=== PATIENT | male | born 1955 | race Caucasian/White ===

== ENCOUNTER 2019-11-16 08:01 | Outpatient (CLI) | payer MEDICARE, SELFPAY ==
[2019-11-16 08:39] LABS: Hemoglobin A1C 8.1 % (<5.7)
[2019-11-16 09:43] LABS: Alanine Aminotransferase 22 U/L (16-63); Albumin Level 3.5 g/dL (3.4-5.0); Alkaline Phosphatase 90 U/L (46-116); Anion Gap 13.7 mmol/L (7-16); Aspartate Amino Transferase 16 U/L (15-37); Bilirubin,Total 0.3 mg/dL (0.00-1.00); Blood Urea Nitrogen 18 mg/dL (7-18); Calcium 9.3 mg/dL (8.5-10.1); Carbon Dioxide 30 mmol/L (21-32); Chloride 106 mmol/L (98-108); Cholesterol 217 mg/dL (0-200); Estimated Glomerular Filt Rate > 60; Glucose 142 mg/dL (70-99); HDL Direct 70 mg/dL (40-60); LDL Cholesterol Calculated 131 mg/dL (<130); Osmolality Calculated 303 mOsm/kg (285-295); Potassium 4.7 mmol/L (3.5-5.1); Sodium 145 mmol/L (136-145); Total Protein 6.2 g/dL (6.4-8.2); Triglycerides 79 mg/dL (0-150)
== END 2019-11-16 08:02 | disposition home or self-care (01) ==
PROVIDERS: PCP Internal Medicine; Visit Provider Internal Medicine
DX: E11.9 Type 2 diabetes mellitus without complications (principal)
CPT/HCPCS: 36415; 80053; 80061; 83036

== ENCOUNTER 2020-02-19 09:18 | Outpatient (CLI) | payer MEDICARE, SELFPAY ==
[2020-02-19 09:28] LABS: Basophils Absolute Auto 0.17 K/mm3 (0.00-0.10); Basophils Percent Auto 1.6 % (0.0-1.0); Eosinophils Absolute Auto 0.54 K/mm3 (0.02-0.50); Hematocrit 43.5 % (40.0-54.0); Hemoglobin 15.2 g/dL (14.0-18.0); Immature Granulocyte Absolute 0.08 K/mm3 (0.00-0.00); Immature Granulocyte Percent A 0.7 % (0.0-0.0); Lymphocytes Percent Auto 25.9 % (18.0-42.0); Mean Corpuscular HGB Conc 34.9 g/dL (32.0-36.0); Mean Corpuscular Hemoglobin 31.5 pg (27.0-31.0); Mean Corpuscular Volume 90.2 fL (78.0-102.0); Mean Platelet Volume 8.9 fl (8.7-11.0); Monocytes Absolute Auto 1.11 K/mm3 (0.10-0.90); Monocytes Percent Auto 10.2 % (2.0-11.0); Neutrophils Absolute Auto 6.1 K/mm3 (1.7-7.2); Neutrophils Percent Auto 56.6 % (50.0-70.0); Platelet Count Result 212 K/mm3 (150-420); Red Blood Count 4.82 M/mm3 (4.70-6.10); Red Cell Distribution Width 12.8 % (11.6-14.4); White Blood Count 10.8 K/mm3 (4.8-10.8)
[2020-02-19 09:36] LABS: Hemoglobin A1C 7.6 % (<5.7)
[2020-02-19 10:47] LABS: Alanine Aminotransferase 22 U/L (16-63); Albumin Level 3.6 g/dL (3.4-5.0); Alkaline Phosphatase 95 U/L (46-116); Anion Gap 10.8 mmol/L (7-16); Aspartate Amino Transferase 15 U/L (15-37); Bilirubin,Total 0.4 mg/dL (0.00-1.00); Blood Urea Nitrogen 20 mg/dL (7-18); Calcium 8.9 mg/dL (8.5-10.1); Carbon Dioxide 31 mmol/L (21-32); Chloride 103 mmol/L (98-108); Cholesterol 162 mg/dL (0-200); Estimated Glomerular Filt Rate > 60; Glucose 148 mg/dL (70-99); HDL Direct 56 mg/dL (40-60); LDL Cholesterol Calculated 98 mg/dL (<130); Osmolality Calculated 295 mOsm/kg (285-295); Potassium 4.8 mmol/L (3.5-5.1); Sodium 140 mmol/L (136-145); Total Protein 6.3 g/dL (6.4-8.2); Triglycerides 42 mg/dL (0-150)
== END 2020-02-19 09:19 | disposition home or self-care (01) ==
LOC: CHSLAB 09:20
PROVIDERS: PCP Internal Medicine; Visit Provider Internal Medicine
DX: E78.5 Hyperlipidemia, unspecified (principal); I10 Essential (primary) hypertension; E11.9 Type 2 diabetes mellitus without complications
CPT/HCPCS: 36415; 80053; 80061; 83036; 85025

== ENCOUNTER 2020-03-20 12:19 | Outpatient (CLI) | payer MEDICARE, SELFPAY ==
[2020-03-20 12:32] LABS: Mean Corpuscular HGB Conc 34.1 g/dL (32.0-36.0); Mean Corpuscular Hemoglobin 31.3 pg (27.0-31.0); Mean Corpuscular Volume 91.7 fL (78.0-102.0); Mean Platelet Volume 8.8 fl (8.7-11.0); Platelet Count Result 211 K/mm3 (150-420); Red Blood Count 4.47 M/mm3 (4.70-6.10); Red Cell Distribution Width 12.9 % (11.6-14.4); White Blood Count 9.7 K/mm3 (4.8-10.8)
[2020-03-20 13:20] LABS: Anion Gap 11.7 mmol/L (7-16); Blood Urea Nitrogen 22 mg/dL (7-18); Calcium 9.3 mg/dL (8.5-10.1); Carbon Dioxide 29 mmol/L (21-32); Chloride 104 mmol/L (98-108); Estimated Glomerular Filt Rate 55; Glucose 95 mg/dL (70-99); Magnesium 1.8 mg/dL (1.8-2.4); Osmolality Calculated 293 mOsm/kg (285-295); Potassium 4.7 mmol/L (3.5-5.1); Sodium 140 mmol/L (136-145); Thyroid Stimulating Hormone 2.51 uIU/mL (0.36-3.74)
== END 2020-03-20 12:20 | disposition home or self-care (01) ==
LOC: CHSLAB 12:21
PROVIDERS: PCP Internal Medicine; Visit Provider Specialist
DX: I48.92 Unspecified atrial flutter (principal); R00.0 Tachycardia, unspecified; Z79.899 Other long term (current) drug therapy
CPT/HCPCS: 36415; 80048; 83735; 84443; 85027; 93306

== ENCOUNTER 2020-07-08 12:33 | Outpatient (CLI) | payer MEDICARE, SELFPAY | END 2020-07-08 12:34 | disposition home or self-care (01) | LOC: CHSLAB 12:37 | PROVIDERS: PCP Internal Medicine; Visit Provider Specialist | DX: C44.519 Basal cell carcinoma of skin of other part of trunk (principal) | CPT/HCPCS: 88305 ==

== ENCOUNTER 2020-08-19 12:07 | Outpatient (CLI) | payer MEDICARE, SELFPAY ==
--- NOTE | ~2020-08-19 | XR_ITS ---
EXAMINATION: XR shoulder LT min 2V DATE: 08/19/2020 12:25 INDICATION: Left shoulder pain. TECHNIQUE: 4 views of left shoulder were obtained. COMPARISON: None. FINDINGS: Bone alignment is normal. No fracture. There is severe osteoarthritis of glenohumeral joint and acromioclavicular joint. IMPRESSION: 1. Polyarticular osteoarthritis. Reviewed, dictated and finalized at location A. RGLASSER
== END 2020-08-19 12:08 | disposition home or self-care (01) ==
LOC: CHSIMG 12:08
PROVIDERS: PCP Internal Medicine; Visit Provider Internal Medicine
DX: M25.512 Pain in left shoulder (principal)
CPT/HCPCS: 73030

== ENCOUNTER 2020-09-03 08:52 | Outpatient (CLI) | payer MEDICARE, SELFPAY ==
[2020-09-03 09:54] LABS: Anion Gap 9 mmol/L (8-16); Blood Urea Nitrogen 15 mg/dL (7-18); Calcium 9.2 mg/dL (8.5-10.1); Carbon Dioxide 27 mmol/L (21-32); Chloride 104 mmol/L (98-108); Estimated Glomerular Filt Rate > 60; Glucose 91 mg/dL (70-99); Osmolality Calculated 290 mOsm/kg (285-295); Potassium 4.5 mmol/L (3.5-5.1); Sodium 140 mmol/L (136-145)
== END 2020-09-03 08:53 | disposition home or self-care (01) ==
PROVIDERS: PCP Internal Medicine
DX: R00.0 Tachycardia, unspecified (principal); I10 Essential (primary) hypertension; R60.9 Edema, unspecified
CPT/HCPCS: 36415; 80048

== ENCOUNTER 2020-11-27 08:50 | Outpatient (CLI) | payer MEDICARE, SELFPAY ==
[2020-11-27 09:13] LABS: Basophils Absolute Auto 0.13 K/mm3 (0.00-0.10); Basophils Percent Auto 1.3 % (0.0-1.0); Eosinophils Absolute Auto 0.54 K/mm3 (0.02-0.50); Eosinophils Percent Auto 5.3 % (1.0-6.0); Hematocrit 36.9 % (40.0-54.0); Hemoglobin 12.2 g/dL (14.0-18.0); Immature Granulocyte Absolute 0.06 K/mm3 (0.00-0.00); Immature Granulocyte Percent A 0.6 % (0.0-0.0); Lymphocytes Percent Auto 15.8 % (18.0-42.0); Mean Corpuscular HGB Conc 33.1 g/dL (32.0-36.0); Mean Corpuscular Hemoglobin 30.4 pg (27.0-31.0); Mean Platelet Volume 9.2 fl (8.7-11.0); Monocytes Absolute Auto 0.97 K/mm3 (0.10-0.90); Monocytes Percent Auto 9.6 % (2.0-11.0); Neutrophils Absolute Auto 6.8 K/mm3 (1.7-7.2); Neutrophils Percent Auto 67.4 % (50.0-70.0); Platelet Count Result 219 K/mm3 (150-420); Red Blood Count 4.01 M/mm3 (4.70-6.10); Red Cell Distribution Width 15.1 % (11.6-14.4); White Blood Count 10.1 K/mm3 (4.8-10.8)
[2020-11-27 09:40] LABS: Hemoglobin A1C 7.4 % (<5.7)
[2020-11-27 09:57] LABS: Alanine Aminotransferase 36 U/L (16-63); Albumin Level 3.4 g/dL (3.4-5.0); Alkaline Phosphatase 112 U/L (46-116); Anion Gap 8 mmol/L (8-16); Aspartate Amino Transferase 22 U/L (15-37); Bilirubin,Total 0.5 mg/dL (0.00-1.00); Blood Urea Nitrogen 24 mg/dL (7-18); Calcium 9.1 mg/dL (8.5-10.1); Carbon Dioxide 28 mmol/L (21-32); Chloride 104 mmol/L (98-108); Estimated Glomerular Filt Rate > 60; Glucose 80 mg/dL (70-99); Osmolality Calculated 293 mOsm/kg (285-295); Sodium 140 mmol/L (136-145); Total Protein 6.3 g/dL (6.4-8.2)
== END 2020-11-27 08:51 | disposition home or self-care (01) ==
LOC: CHSLAB 08:52
PROVIDERS: PCP Internal Medicine; Visit Provider Internal Medicine
DX: E11.9 Type 2 diabetes mellitus without complications (principal); I10 Essential (primary) hypertension
CPT/HCPCS: 36415; 80053; 83036; 85025

== ENCOUNTER 2020-11-28 09:36 | Outpatient (CLI) | payer MEDICARE, SELFPAY ==
[2020-11-28 09:54] LABS: Immature Reticulocyte Fraction 6.2 % (2.0-16.52); Reticulocyte Hemoglobin Conten 35.8 pg (28.0-35.0); Reticulocyte Percent 1.29 % (0.50-1.50); Reticulocytes Absolute 0.06 M/mm3 (0.02-0.1)
[2020-11-28 10:43] LABS: Ferritin 154 ng/mL (26-388); Iron 105 ug/dL (65-175); Percent Iron Saturation 29 % (12-57); Prostate Specific Antigen 1.8 ng/mL (< OR = 4.0)
[2020-11-28 10:45] LABS: CRP < 0.2 mg/dL (0.0-0.9)
[2020-12-02 08:52] LABS: Methylmalonic Acid 190 nmol/L (87-318)
== END 2020-11-28 09:37 | disposition home or self-care (01) ==
LOC: CHSLAB 09:38
PROVIDERS: PCP Internal Medicine; Visit Provider Internal Medicine
DX: D64.9 Anemia, unspecified (principal); C61 Malignant neoplasm of prostate
CPT/HCPCS: 36415; 82728; 83540; 83550; 83921; 84153; 85046; 86140

== ENCOUNTER 2021-02-26 08:49 | Outpatient (CLI) | payer MEDICARE, SELFPAY ==
[2021-02-26 09:01] LABS: Basophils Absolute Auto 0.12 K/mm3 (0.00-0.10); Basophils Percent Auto 1.4 % (0.0-1.0); Eosinophils Absolute Auto 0.59 K/mm3 (0.02-0.50); Eosinophils Percent Auto 6.9 % (1.0-6.0); Hemoglobin 13.7 g/dL (12.4-15.3); Immature Granulocyte Absolute 0.06 K/mm3 (0.00-0.00); Immature Granulocyte Percent A 0.7 % (0.0-0.0); Lymphocytes Absolute Auto 1.47 K/mm3 (1.10-4.50); Lymphocytes Percent Auto 17.2 % (18.0-42.0); Mean Corpuscular HGB Conc 34.3 g/dL (32.0-36.0); Mean Corpuscular Hemoglobin 31.4 pg (27.0-31.0); Mean Corpuscular Volume 91.5 fL (78.0-102.0); Mean Platelet Volume 8.8 fl (8.7-11.0); Monocytes Absolute Auto 0.92 K/mm3 (0.10-0.90); Monocytes Percent Auto 10.8 % (2.0-11.0); Neutrophils Absolute Auto 5.4 K/mm3 (1.7-7.2); Platelet Count Result 174 K/mm3 (150-420); Red Blood Count 4.37 M/mm3 (4.70-6.10); White Blood Count 8.5 K/mm3 (4.8-10.8)
[2021-02-26 09:34] LABS: Alanine Aminotransferase 21 U/L (16-63); Albumin Level 3.4 g/dL (3.4-5.0); Alkaline Phosphatase 102 U/L (46-116); Anion Gap 11 mmol/L (8-16); Aspartate Amino Transferase 12 U/L (15-37); Bilirubin,Total 0.3 mg/dL (0.00-1.00); Blood Urea Nitrogen 23 mg/dL (7-18); Carbon Dioxide 26 mmol/L (21-32); Chloride 103 mmol/L (98-108); Cholesterol 200 mg/dL (0-200); Estimated Glomerular Filt Rate > 60; Glucose 131 mg/dL (70-99); HDL Direct 61 mg/dL (40-60); LDL Cholesterol Calculated 121 mg/dL (<130); Osmolality Calculated 295 mOsm/kg (285-295); Potassium 4.4 mmol/L (3.5-5.1); Sodium 140 mmol/L (136-145); Total Protein 6.2 g/dL (6.4-8.2); Triglycerides 90 mg/dL (0-150)
[2021-02-26 09:38] LABS: Hemoglobin A1C 6.7 % (<5.7)
== END 2021-02-26 08:50 | disposition home or self-care (01) ==
LOC: CHSLAB 08:52
PROVIDERS: PCP Internal Medicine; Visit Provider Internal Medicine
DX: D64.9 Anemia, unspecified (principal); E11.9 Type 2 diabetes mellitus without complications
CPT/HCPCS: 36415; 80053; 80061; 83036; 85025

== ENCOUNTER 2021-05-05 13:11 | Outpatient (CLI) | payer MEDICARE, SELFPAY | END 2021-05-05 13:12 | disposition home or self-care (01) | PROVIDERS: PCP Internal Medicine; Visit Provider Specialist | DX: L82.0 Inflamed seborrheic keratosis (principal) | CPT/HCPCS: 88305 ==

== ENCOUNTER 2021-06-01 08:59 | Outpatient (CLI) | payer MEDICARE, SELFPAY ==
[2021-06-01 10:22] LABS: Alanine Aminotransferase 27 U/L (16-63); Albumin Level 3.5 g/dL (3.4-5.0); Alkaline Phosphatase 101 U/L (46-116); Anion Gap 8 mmol/L (8-16); Aspartate Amino Transferase 15 U/L (15-37); Bilirubin,Total 0.5 mg/dL (0.00-1.00); Blood Urea Nitrogen 20 mg/dL (7-18); Calcium 8.9 mg/dL (8.5-10.1); Carbon Dioxide 30 mmol/L (21-32); Chloride 106 mmol/L (98-108); Cholesterol 194 mg/dL (0-200); Estimated Glomerular Filt Rate > 60; Glucose 97 mg/dL (70-99); HDL Direct 67 mg/dL (40-60); LDL Cholesterol Calculated 118 mg/dL (<130); Osmolality Calculated 300 mOsm/kg (285-295); Potassium 4.2 mmol/L (3.5-5.1); Sodium 144 mmol/L (136-145); Total Protein 6.6 g/dL (6.4-8.2); Triglycerides 45 mg/dL (0-150)
== END 2021-06-01 09:00 | disposition home or self-care (01) ==
LOC: CHSLAB 09:01
PROVIDERS: PCP Internal Medicine; Visit Provider Internal Medicine
DX: E11.9 Type 2 diabetes mellitus without complications (principal)
CPT/HCPCS: 36415; 80053; 80061; 83036

== ENCOUNTER 2021-07-21 09:05 | Outpatient (CLI) | payer MEDICARE, SELFPAY | END 2021-07-21 09:06 | disposition home or self-care (01) | LOC: CHSOUTPT 09:08 | PROVIDERS: PCP Internal Medicine; Visit Provider Specialist | DX: C44.629 Squamous cell carcinoma of skin of left upper limb, including shoulder (principal) | CPT/HCPCS: 88305 ==

== ENCOUNTER 2021-09-22 10:22 | Outpatient (CLI) | payer MEDICARE, SELFPAY | END 2021-09-22 10:23 | disposition home or self-care (01) | PROVIDERS: PCP Internal Medicine; Visit Provider Specialist | DX: B07.8 Other viral warts (principal) | CPT/HCPCS: 88305 ==

== ENCOUNTER 2021-09-29 08:57 | Outpatient (CLI) | payer MEDICARE, SELFPAY ==
[2021-09-29 09:24] LABS: Basophils Absolute Auto 0.13 K/mm3 (0.00-0.10); Basophils Percent Auto 1.5 % (0.0-1.0); Eosinophils Percent Auto 5.9 % (1.0-6.0); Hematocrit 40.8 % (37.0-46.0); Hemoglobin 13.9 g/dL (12.4-15.3); Immature Granulocyte Absolute 0.04 K/mm3 (0.00-0.00); Immature Granulocyte Percent A 0.5 % (0.0-0.0); Lymphocytes Absolute Auto 1.77 K/mm3 (1.10-4.50); Lymphocytes Percent Auto 20.9 % (18.0-42.0); Mean Corpuscular HGB Conc 34.1 g/dL (32.0-36.0); Mean Corpuscular Hemoglobin 31.4 pg (27.0-31.0); Mean Corpuscular Volume 92.3 fL (78.0-102.0); Monocytes Absolute Auto 0.77 K/mm3 (0.10-0.90); Monocytes Percent Auto 9.1 % (2.0-11.0); Neutrophils Absolute Auto 5.3 K/mm3 (1.7-7.2); Neutrophils Percent Auto 62.1 % (50.0-70.0); Platelet Count Result 206 K/mm3 (150-420); Red Blood Count 4.42 M/mm3 (4.70-6.10); Red Cell Distribution Width 12.7 % (11.6-14.4); White Blood Count 8.5 K/mm3 (4.8-10.8)
[2021-09-29 09:39] LABS: Hemoglobin A1C 7.1 % (<5.7)
[2021-09-29 10:04] LABS: Alanine Aminotransferase 28 U/L (16-63); Albumin Level 3.6 g/dL (3.4-5.0); Alkaline Phosphatase 97 U/L (46-116); Anion Gap 10 mmol/L (8-16); Aspartate Amino Transferase 18 U/L (15-37); Bilirubin,Total 0.4 mg/dL (0.00-1.00); Blood Urea Nitrogen 15 mg/dL (7-18); Carbon Dioxide 27 mmol/L (21-32); Chloride 102 mmol/L (98-108); Cholesterol 232 mg/dL (0-200); Estimated Glomerular Filt Rate > 60; Glucose 114 mg/dL (70-99); HDL Direct 65 mg/dL (40-60); LDL Cholesterol Calculated 154 mg/dL (<130); Osmolality Calculated 289 mOsm/kg (285-295); Potassium 4.1 mmol/L (3.5-5.1); Prostate Specific Antigen 1.8 ng/mL (< OR = 4.0); Sodium 139 mmol/L (136-145); Total Protein 6.5 g/dL (6.4-8.2); Triglycerides 64 mg/dL (0-150)
[2021-09-29 10:47] LABS: Add Urine Microscopic? YES; Appearance Urine Clear (Clear); Bilirubin Urine Negative (Negative); Blood Urine Negative (Negative); Color Urine Yellow (Yellow); Glucose Urine UA Negative (Negative); Ketones Urine Negative (Negative); Leukocyte Esterase Ur Negative (Negative); Nitrate Urine Negative (Negative); Protein Urine 2+ (Negative); Urobilinogen Urine 0.2 mg/dL (0.2-1.0)
[2021-09-29 10:52] LABS: Bacteria Urine Trace /hpf; Mucus Urine Few /lpf; RBC Urine None seen /hpf (0-2); WBC Urine None seen /hpf (0-3)
[2021-09-29 11:05] LABS: Creatinine Urine 134.58 mg/dL (40-278)
[2021-09-29 11:31] LABS: MALB Creatinine Ratio 297.2 mg/g (0-30); Microalbumin Urine Random > 400.0 mg/L
[2021-10-02 05:37] LABS: LH 5.7 mIU/mL (1.6-15.2)
[2021-10-03 11:15] LABS: Testosterone Free 52.5 pg/mL (35.0-155.0); Testosterone Total 682 ng/dL (250-1100)
== END 2021-09-29 08:58 | disposition home or self-care (01) ==
LOC: CHSLAB 09:00
PROVIDERS: PCP Internal Medicine; Visit Provider Internal Medicine
DX: E11.9 Type 2 diabetes mellitus without complications (principal); E29.1 Testicular hypofunction; Z00.00 Encounter for general adult medical examination without abnormal findings; Z12.5 Encounter for screening for malignant neoplasm of prostate
CPT/HCPCS: 36415; 80053; 80061; 81001; 82043; 83002; 83036; 84153; 84402; 84403; 84443; 85025; G0103

== ENCOUNTER 2021-12-29 09:26 | Outpatient (CLI) | payer MEDICARE, SELFPAY ==
[2021-12-29 10:03] LABS: Hemoglobin A1C 6.4 % (<5.7)
[2021-12-29 10:28] LABS: Prostate Specific Antigen 1.8 ng/mL (< OR = 4.0)
== END 2021-12-29 09:27 | disposition home or self-care (01) ==
LOC: CHSLAB 09:27
PROVIDERS: PCP Internal Medicine; Visit Provider Internal Medicine
DX: E11.9 Type 2 diabetes mellitus without complications (principal); C61 Malignant neoplasm of prostate
CPT/HCPCS: 36415; 83036; 84153

== ENCOUNTER 2022-05-24 14:37 | Outpatient (CLI) | payer MEDICARE, SELFPAY ==
[2022-05-24 15:04] LABS: Appearance Urine Clear (Clear); Basophils Absolute Auto 0.13 K/mm3 (0.00-0.10); Basophils Percent Auto 1.1 % (0.0-1.0); Bilirubin Urine Negative (Negative); Color Urine Yellow (Yellow); Eosinophils Absolute Auto 0.47 K/mm3 (0.02-0.50); Eosinophils Percent Auto 4.1 % (1.0-6.0); Glucose Urine UA Negative (Negative); Hematocrit 39.9 % (37.0-46.0); Hemoglobin 13.6 g/dL (12.4-15.3); Immature Granulocyte Absolute 0.07 K/mm3 (0.00-0.00); Immature Granulocyte Percent A 0.6 % (0.0-0.0); Ketones Urine 1+ (Negative); Leukocyte Esterase Ur Negative (Negative); Lymphocytes Absolute Auto 2.28 K/mm3 (1.10-4.50); Lymphocytes Percent Auto 19.8 % (18.0-42.0); Mean Corpuscular HGB Conc 34.1 g/dL (32.0-36.0); Mean Corpuscular Hemoglobin 31.8 pg (27.0-31.0); Mean Corpuscular Volume 93.2 fL (78.0-102.0); Mean Platelet Volume 9.1 fl (8.7-11.0); Monocytes Absolute Auto 1.06 K/mm3 (0.10-0.90); Monocytes Percent Auto 9.2 % (2.0-11.0); Neutrophils Absolute Auto 7.5 K/mm3 (1.7-7.2); Neutrophils Percent Auto 65.2 % (50.0-70.0); Nitrate Urine Negative (Negative); Platelet Count Result 200 K/mm3 (150-420); Protein Urine 2+ (Negative); Red Blood Count 4.28 M/mm3 (4.70-6.10); Specific Grav Ur >= 1.030 (1.010-1.020); Urobilinogen Urine 0.2 mg/dL (0.2-1.0); White Blood Count 11.5 K/mm3 (4.8-10.8); pH Urine 5.5 (5.0-8.0)
[2022-05-24 15:22] LABS: Add Urine Microscopic? YES; Bacteria Urine Trace /hpf; Blood Urine Trace-Intact (Negative); Squamous Epithelial Cell Urine Rare /hpf (Few); WBC Urine 0-3 /hpf (0-3)
[2022-05-24 15:25] LABS: Hemoglobin A1C 6.8 % (<5.7)
[2022-05-24 15:34] LABS: Alanine Aminotransferase 21 U/L (16-63); Albumin Level 3.6 g/dL (3.4-5.0); Alkaline Phosphatase 111 U/L (46-116); Anion Gap 6 mmol/L (8-16); Aspartate Amino Transferase 14 U/L (15-37); Bilirubin,Total 0.3 mg/dL (0.00-1.00); Blood Urea Nitrogen 23 mg/dL (7-18); Calcium 9.3 mg/dL (8.5-10.1); Carbon Dioxide 29 mmol/L (21-32); Chloride 103 mmol/L (98-108); Estimated Glomerular Filt Rate > 60; Free T3 2.44 pg/mL (2.18-3.98); Free T4 Free Thyroxine 0.99 ng/dL (0.76-1.46); Glucose 159 mg/dL (70-99); Osmolality Calculated 292 mOsm/kg (285-295); Potassium 4.2 mmol/L (3.5-5.1); Sodium 138 mmol/L (136-145); Total Protein 6.6 g/dL (6.4-8.2)
== END 2022-05-24 14:38 | disposition home or self-care (01) ==
LOC: CHSLAB 14:38
PROVIDERS: PCP Internal Medicine; Visit Provider Internal Medicine
DX: R19.7 Diarrhea, unspecified (principal); E11.9 Type 2 diabetes mellitus without complications; I10 Essential (primary) hypertension
CPT/HCPCS: 36415; 80053; 81001; 83036; 84439; 84443; 84481; 85025

== ENCOUNTER 2022-05-25 14:24 | Outpatient (CLI) | payer MEDICARE, SELFPAY | END 2022-05-25 14:25 | disposition home or self-care (01) | LOC: CHSLAB 14:27 | PROVIDERS: PCP Internal Medicine; Visit Provider Internal Medicine | DX: R19.7 Diarrhea, unspecified (principal); E11.9 Type 2 diabetes mellitus without complications; I10 Essential (primary) hypertension | CPT/HCPCS: 87045; 87177; 87209; 87324; 87427 ==

== ENCOUNTER 2022-07-06 13:41 | Outpatient (CLI) | payer MEDICARE, SELFPAY | END 2022-07-06 13:42 | disposition home or self-care (01) | LOC: CHSLAB 13:42 | PROVIDERS: PCP Internal Medicine; Visit Provider Specialist | DX: C44.529 Squamous cell carcinoma of skin of other part of trunk (principal) | CPT/HCPCS: 88305 ==

== ENCOUNTER 2022-09-14 17:58 | Emergency (ER) | payer MEDICARE, SELFPAY ==
[2022-09-14] VITALS (14 sets, daily range): BP systolic 92–180; BP diastolic 58–84; PULSE 78–90; RESP 16–20; TEMP 36.6–37.3; O2SAT 90–95
--- NOTE | ~2022-09-14 | XR_ITS ---
EXAMINATION: XR chest 2V Exam Date/Time: 09/14/2022 19:40 MASTERCAM PROGRAMMER HISTORY: Cough, fever, weakness, positive influenza Comparison: 05/07/2019. RESULT: Lines, tubes, and devices: None. Lungs and pleura: Diffuse reticulonodular opacities and cuffing. Cardiomediastinal silhouette: Stable. Other: No acute osseous or upper abdominal finding. IMPRESSION: Pulmonary opacities may represent bronchiolitis, as can be seen with atypical infection, asthma, aspi ration, and small airways disease. Reviewed, dictated and finalized at location K. ERCAM PROGRAMMER IMPRESSION: Pulmonary opacities may represent bronchiolitis, as can be seen with atypical i nfection, asthma, aspiration, and small airways disease.
--- NOTE | 2022-09-14 18:03 | ED.URI ---
HPI - URI/Sore Throat General Chief Complaint: Fever Stated Complaint: short of breath Time Seen by Provider: 09/14/22 18:03 Source: patient and RN notes reviewed Mode of arrival: ambulatory Limitations: no limitations History of Present Illness MD elicited complaint: fever, cough and nasal congestion Onset (ago): week(s) (1) Consistency: intermittent Severity: moderate Description of mucous: clear Able to tolerate fluids by mouth: Yes Exacerbating factors: exertion and other ( coughing) Relieving factors: nothing Context: sick contacts Associated symptoms: chills, myalgias, headache, cough, shortness of breath and other ( dizziness) Treatments prior to arrival: none Related Data Home Medications Medication Instructions Recorded Confirmed blood sugar diagnostic (OneTouch 09/14/22 09/14/22 Ultra Test strips) buspirone 10 mg tablet 20 mg PO BID 09/14/22 09/14/22 fluoxetine 20 mg capsule 60 mg PO DAILY 09/14/22 09/14/22 insulin aspart U-100 100 unit/mL See Rx Instructions .Route .COMPLEX 09/14/22 09/14/22 (3 mL) subcutaneous pen (Novolog FlexPen U-100 Insulin aspart) insulin glargine 100 unit/mL (3 30 unit subcut HS 09/14/22 09/14/22 mL) subcutaneous pen (Basaglar KwikPen U-100 Insulin) lisinopril 10 mg tablet 10 mg PO DAILY 09/14/22 09/14/22 Allergies Allergy/AdvReac Type Severity Reaction Status Date / Time quetiapine [From Seroquel] Allergy Hallucinati Verified 09/14/22 18:16 ng Review of Systems Review of Systems: All systems reviewed & are unremarkable except as noted in HPI and below PMFSH Past Medical History Medical History (Updated 09/14/22 @ 21:04 by Elgin Green MD) Atrial fibrillation Depression Diabetes Hypertension Surgical History Surgical History (Updated 09/14/22 @ 21:04 by Elgin Green MD) H/O cardiac radiofrequency ablation Social History Social History (Updated 09/14/22 @ 19:06 by Elgin Green MD) Smoking status: Former smoker Tobacco type: cigarettes Additional smoking assessment comments: says he quit 2 weeks ago Exam Const: General: no acute distress, alert and ill appearing acutely Nutritional Appearance: well nourished Orientation/consciousness: patient oriented x3 Limitations: no limitations HENMT: Head: normal to inspection Ears: external ears normal Eyes: Conjunctivae: conjunctivae normal Pupils: Equal, round and reactive pupils present EOM: EOMs intact bilaterally Neck: Neck: normal visual inspection Resp: Effort & Inspection: normal respiratory effort Auscultation: clear to auscultation bilaterally Cardio: Rate: regular rate Rhythm: regular rhythm GI: GI Palp: Yes Soft to palpation and No Tenderness to palpation present (GI) Auscultation: normal bowel sounds Back/Spine/Pelvis: Cervical Spine: cervical ROM normal Thoracic/Lumbar Spine: thoraco-lumbar ROM normal Skin: General skin exam: normal color Rashes: no rashes Neuro: General: patient oriented x3, moves all extremities, no focal motor deficits and CN's II-XI intact bilaterally Speech: normal speech Gait exam (Neuro): Normal gait present Extrem: General: normal to inspection and no clubbing, cyanosis or edema Psych: Mental Status: mental status grossly normal Affect: normal affect Attitude: cooperative Course Course Emergency Course: Patient given 1 L of normal saline for his acute low sodium. This is secondary to his diarrhea. He states he just really needs something for cough to help him sleep. He is not requiring any supplemental oxygen is not any respiratory distress. I explained to him that he is beyond the window for treatment of influenza. I will give him some Tessalon Perles for his cough and meclizine for his dizziness. He is encouraged to eat a BRAT diet with chicken breast. Follow-up with primary care physician any worsening symptoms. Vital Signs Vital signs: Vital Signs Temperature 37.3 C 09/14/22 18:00 Pulse Rate 90 09/05
[2022-09-14 18:09] LABS: Glucose Point of Care 197 mg/dl (65-105)
[2022-09-14 18:33] LABS: Basophils Absolute Auto 0.02 K/mm3 (0.00-0.10); Basophils Percent Auto 0.5 % (0.0-1.0); Hematocrit 41.9 % (37.0-46.0); Hemoglobin 14.6 g/dL (12.4-15.3); Immature Granulocyte Absolute 0.02 K/mm3 (0.00-0.00); Immature Granulocyte Percent A 0.5 % (0.0-0.0); Lymphocytes Absolute Auto 0.69 K/mm3 (1.10-4.50); Lymphocytes Percent Auto 16.5 % (18.0-42.0); Mean Corpuscular HGB Conc 34.8 g/dL (32.0-36.0); Mean Corpuscular Hemoglobin 30.7 pg (27.0-31.0); Mean Corpuscular Volume 88.2 fL (78.0-102.0); Mean Platelet Volume 10.2 fl (8.7-11.0); Monocytes Absolute Auto 0.26 K/mm3 (0.10-0.90); Monocytes Percent Auto 6.2 % (2.0-11.0); Neutrophils Absolute Auto 3.2 K/mm3 (1.7-7.2); Neutrophils Percent Auto 76.3 % (50.0-70.0); Platelet Count Result 126 K/mm3 (150-420); Red Blood Count 4.75 M/mm3 (4.70-6.10); Red Cell Distribution Width 12.6 % (11.6-14.4); White Blood Count 4.2 K/mm3 (4.8-10.8)
--- NOTE | 2022-09-14 18:51 | PC.NURSE ---
PT IS LAYING ON STRETCHER IN EXAM ROOM AWAITING RESULTS AT THIS TIME. NAD NOTED. WILL CONTINUE TO MONITOR. CALL LIGHT AT BEDSIDE.
[2022-09-14 18:54] LABS: Lactic Acid Reflex 1.4 mmol/L (0.4-2.0)
[2022-09-14 18:58] LABS: Alanine Aminotransferase 41 U/L (16-63); Albumin Level 2.9 g/dL (3.4-5.0); Alkaline Phosphatase 105 U/L (46-116); Anion Gap 11 mmol/L (8-16); Aspartate Amino Transferase 71 U/L (15-37); Bilirubin,Total 0.2 mg/dL (0.00-1.00); Blood Urea Nitrogen 65 mg/dL (7-18); Calcium 8.6 mg/dL (8.5-10.1); Carbon Dioxide 24 mmol/L (21-32); Chloride 93 mmol/L (98-108); Estimated CRCL calculation 28 ml/min; Estimated Glomerular Filt Rate 30; Glucose 220 mg/dL (70-99); Magnesium 2.1 mg/dL (1.8-2.4); NT Pro B Type Natriuretic Pept 37 pg/mL (0-125); Osmolality Calculated 291 mOsm/kg (285-295); Sodium 128 mmol/L (136-145); Total Protein 6.7 g/dL (6.4-8.2)
[2022-09-14 18:59] LABS: CRP 11.2 mg/dL (0.0-0.9)
[2022-09-14 19:09] LABS: Influenza A QL RT-PCR Positive (Negative); Influenza B QL RT-PCR Negative (Negative); SARS-CoV-2 RNA PCR Negative (Negative)
[2022-09-14] MEDS: SODIUM CHLORIDE 0.9% IV 1,000 ML 999 ML IV CONT (19:10)
[2022-09-14] MEDS: MECLIZINE HCL 25 MG TABLET PO (20:38)
[2022-09-14] MEDS: BENZONATATE 100 MG CAPSULE PO (20:38)
--- NOTE | 2022-09-21 14:12 | PC.NURSE ---
FINAL BLOOD CULTURE REPORT X2: NO GROWTH AFTER 5 DAYS. NO ACTION NEEDED.
== END 2022-09-14 20:40 | disposition home or self-care (01) ==
PROVIDERS: Emergency Provider Emergency Medicine; PCP Internal Medicine
DX: J10.1 Influenza due to other identified influenza virus with other respiratory manifestations (principal); E87.1 Hypo-osmolality and hyponatremia; R06.02 Shortness of breath; E11.9 Type 2 diabetes mellitus without complications; I10 Essential (primary) hypertension; F32.A Depression, unspecified; Z87.891 Personal history of nicotine dependence; Z79.4 Long term (current) use of insulin; Z20.822 Contact with and (suspected) exposure to COVID-19
CPT/HCPCS: 36415; 71046; 80053; 82948; 83605; 83735; 83880; 85025; 86140; 87040; 87636; 96360; 99283; A9270; J7030

== ENCOUNTER 2022-09-17 10:32 | Outpatient (CLI) | payer MEDICARE, SELFPAY ==
[2022-09-17 10:47] LABS: Basophils Absolute Auto 0.01 K/mm3 (0.00-0.10); Basophils Percent Auto 0.1 % (0.0-1.0); Hemoglobin 13.8 g/dL (12.4-15.3); Immature Granulocyte Absolute 0.04 K/mm3 (0.00-0.00); Immature Granulocyte Percent A 0.5 % (0.0-0.0); Lymphocytes Absolute Auto 0.77 K/mm3 (1.10-4.50); Lymphocytes Percent Auto 9.2 % (18.0-42.0); Mean Corpuscular HGB Conc 35.4 g/dL (32.0-36.0); Mean Corpuscular Hemoglobin 30.9 pg (27.0-31.0); Mean Corpuscular Volume 87.2 fL (78.0-102.0); Monocytes Absolute Auto 0.76 K/mm3 (0.10-0.90); Monocytes Percent Auto 9.1 % (2.0-11.0); Neutrophils Absolute Auto 6.8 K/mm3 (1.7-7.2); Neutrophils Percent Auto 81.1 % (50.0-70.0); Platelet Count Result 254 K/mm3 (150-420); Red Blood Count 4.47 M/mm3 (4.70-6.10); Red Cell Distribution Width 12.7 % (11.6-14.4); White Blood Count 8.4 K/mm3 (4.8-10.8)
[2022-09-17 10:48] LABS: Appearance Urine Clear (Clear); Bilirubin Urine Negative (Negative); Blood Urine Negative (Negative); Glucose Urine UA Trace (Negative); Ketones Urine Trace (Negative); Leukocyte Esterase Ur Negative (Negative); Nitrate Urine Negative (Negative); Protein Urine 1+ (Negative); Specific Grav Ur 1.025 (1.010-1.020); Urobilinogen Urine 0.2 mg/dL (0.2-1.0); pH Urine 5.5 (5.0-8.0)
[2022-09-17 10:59] LABS: Add Urine Microscopic? YES; Color Urine Dark Yellow (Yellow); RBC Urine None seen /hpf (0-2); WBC Urine None seen /hpf (0-3)
[2022-09-17 11:00] LABS: Bacteria Urine Trace /hpf
[2022-09-17 11:46] LABS: Alanine Aminotransferase 43 U/L (16-63); Albumin Level 2.8 g/dL (3.4-5.0); Alkaline Phosphatase 112 U/L (46-116); Anion Gap 12 mmol/L (8-16); Aspartate Amino Transferase 41 U/L (15-37); Bilirubin,Total 0.3 mg/dL (0.00-1.00); Blood Urea Nitrogen 77 mg/dL (7-18); Calcium 8.4 mg/dL (8.5-10.1); Carbon Dioxide 21 mmol/L (21-32); Chloride 96 mmol/L (98-108); Estimated Glomerular Filt Rate 37; Magnesium 2.4 mg/dL (1.8-2.4); Osmolality Calculated 313 mOsm/kg (285-295); Potassium 4.4 mmol/L (3.5-5.1); Sodium 129 mmol/L (136-145); Total Protein 6.5 g/dL (6.4-8.2)
[2022-09-17 11:58] LABS: Glucose 498 mg/dL (70-99)
== END 2022-09-17 10:33 | disposition home or self-care (01) ==
LOC: CHSLAB 10:35
PROVIDERS: PCP Internal Medicine; Visit Provider Internal Medicine
DX: E87.1 Hypo-osmolality and hyponatremia (principal)
CPT/HCPCS: 36415; 80053; 81001; 83735; 85025

== ENCOUNTER 2022-09-20 13:52 | Outpatient (CLI) | payer MEDICARE, SELFPAY ==
--- NOTE | ~2022-09-20 | XR_ITS ---
XR chest 2V 09/20/2022 15:21 Indication: Pneumonia. Productive cough. Shortness of breath. Procedure: 2 view chest Comparison: Comparison to multiple prior studies sequentially, with oldest reviewed study dated 07/06. Findings: There are developing infiltrates of the right mid and lower lung, consistent with pneumonia . Heart size normal. No significant effusion. No edema or pneumothorax. No acute osseous abnormality. There is calcified granuloma in the right mid thorax. Impression: 1: Developing infiltrates of the right mid and lower lung, consistent with pneumonia. Reviewed, dictated and finalized at location A. IGURATION ENGINEER Impression: 1: Developing infiltrates of the right mid and lower lung, consistent with pneu monia.
[2022-09-20 14:40] LABS: Alanine Aminotransferase 31 U/L (16-63); Alkaline Phosphatase 107 U/L (46-116); Anion Gap 12 mmol/L (8-16); Aspartate Amino Transferase 20 U/L (15-37); Bilirubin,Total 0.6 mg/dL (0.00-1.00); Blood Urea Nitrogen 27 mg/dL (7-18); Calcium 8.9 mg/dL (8.5-10.1); Carbon Dioxide 24 mmol/L (21-32); Chloride 101 mmol/L (98-108); Estimated Glomerular Filt Rate > 60; Glucose 232 mg/dL (70-99); Magnesium 2.1 mg/dL (1.8-2.4); Osmolality Calculated 296 mOsm/kg (285-295); Potassium 4.7 mmol/L (3.5-5.1); Sodium 137 mmol/L (136-145); Total Protein 6.7 g/dL (6.4-8.2)
== END 2022-09-20 13:53 | disposition home or self-care (01) ==
PROVIDERS: PCP Internal Medicine; Visit Provider Internal Medicine
DX: J18.9 Pneumonia, unspecified organism (principal); R91.8 Other nonspecific abnormal finding of lung field; N17.9 Acute kidney failure, unspecified
CPT/HCPCS: 36415; 71046; 80053; 83735

== ENCOUNTER 2023-02-04 09:01 | Outpatient (CLI) | payer MEDICARE, SELFPAY ==
[2023-02-04 09:35] LABS: Hemoglobin A1C 6.6 % (<5.7)
[2023-02-04 09:38] LABS: Creatinine Urine 198.37 mg/dL (40-278); MALB Creatinine Ratio 201.6 mg/g (0-30); Microalbumin Urine Random > 400.0 mg/L
[2023-02-04 10:21] LABS: Alanine Aminotransferase 13 U/L (16-63); Albumin Level 3.5 g/dL (3.4-5.0); Alkaline Phosphatase 98 U/L (46-116); Anion Gap 8 mmol/L (8-16); Aspartate Amino Transferase 16 U/L (15-37); Bilirubin,Total 0.4 mg/dL (0.00-1.00); Blood Urea Nitrogen 20 mg/dL (7-18); Calcium 8.9 mg/dL (8.5-10.1); Carbon Dioxide 27 mmol/L (21-32); Chloride 105 mmol/L (98-108); Cholesterol 209 mg/dL (0-200); Estimated Glomerular Filt Rate > 60; Glucose 154 mg/dL (70-99); HDL Direct 61 mg/dL (40-60); LDL Cholesterol Calculated 133 mg/dL (<130); Osmolality Calculated 295 mOsm/kg (285-295); Potassium 4.7 mmol/L (3.5-5.1); Prostate Specific Antigen 1.9 ng/mL (< OR = 4.0); Sodium 140 mmol/L (136-145); Total Protein 6.3 g/dL (6.4-8.2); Triglycerides 75 mg/dL (0-150)
[2023-02-08 10:07] LABS: Testosterone Total 694 ng/dL (250-1100)
== END 2023-02-04 09:02 | disposition home or self-care (01) ==
LOC: CHSLAB 09:03
PROVIDERS: PCP Internal Medicine; Visit Provider Internal Medicine
DX: E11.9 Type 2 diabetes mellitus without complications (principal); E78.5 Hyperlipidemia, unspecified; Z12.5 Encounter for screening for malignant neoplasm of prostate
CPT/HCPCS: 36415; 80053; 80061; 82043; 83036; 84153; 84403; G0103

== ENCOUNTER 2023-05-12 10:29 | Emergency (ER) | payer MEDICARE, SELFPAY ==
[2023-05-12 10:29] VITALS: BP 179/78; PULSE 68; RESP 16; TEMP 36.6; O2SAT 98
[2023-05-12] MEDS: DACRIOSE EYE IRRIGATION 118 ML BOTTLE 10 ML EACH EYE (10:49)
[2023-05-12] MEDS: TETRACAINE HCL 0.5% OPHTH SOLN 4 ML BTL 1 DROP EACH EYE (10:49)
[2023-05-12] MEDS: FLUORESCEIN SOD 1 MG/STRIP EACH EYE (10:49)
--- NOTE | 2023-05-12 11:00 | ED.EYEPROB ---
HPI - Eye Problem General Chief complaint: Eye Problems Stated complaint: left eye foreign body Time Seen by Provider: 05/12/23 10:34 Source: patient Mode of arrival: ambulatory Limitations: no limitations History of Present Illness HPI Narrative: this is a 68-year-old male that presents with left eye complaint of sensation of a foreign body after he was doing some grinding and thinks that a sliver of metal [place] into his left eye, other is currently no blurry vision does have some tearing and pain and foreign body sensation with redness in the left eye. chief complaint: eye pain, eye injury and foreign body Onset (ago): day(s) Duration: constant Location: left eye Eye Symptoms: redness and foreign body sensation Severity: moderate Severity scale (1-10): 5 Related Data Home Medications Medication Instructions Recorded Confirmed blood sugar diagnostic (OneTouch 09/14/22 09/14/22 Ultra Test strips) buspirone 10 mg tablet 20 mg PO BID 09/14/22 09/14/22 fluoxetine 20 mg capsule 60 mg PO DAILY 09/14/22 09/14/22 insulin aspart U-100 100 unit/mL See Rx Instructions .Route .COMPLEX 09/14/22 09/14/22 (3 mL) subcutaneous pen (Novolog FlexPen U-100 Insulin aspart) insulin glargine 100 unit/mL (3 30 unit subcut HS 09/14/22 09/14/22 mL) subcutaneous pen (Basaglar KwikPen U-100 Insulin) lisinopril 10 mg tablet 10 mg PO DAILY 09/14/22 09/14/22 Allergies Allergy/AdvReac Type Severity Reaction Status Date / Time quetiapine [From Seroquel] Allergy Hallucinati Verified 09/14/22 18:16 ng Review of Systems Review of Systems: All systems reviewed & are unremarkable except as noted in HPI and below PMFSH Past Medical History Medical History Atrial fibrillation Depression Diabetes Hypertension Surgical History Surgical History H/O cardiac radiofrequency ablation Social History Social History Smoking status: Former smoker Tobacco type: cigarettes Additional smoking assessment comments: says he quit 2 weeks ago Exam Const: General: healthy appearing Nutritional Appearance: well nourished Orientation/consciousness: patient oriented x3 Limitations: no limitations Eyes: Conjunctivae: conjunctival abnormality Pupils: Equal, round and reactive pupils present EOM: EOMs intact bilaterally Direct Ophthalmoscopy: photophobia Neck: Neck: normal visual inspection Resp: Effort & Inspection: normal respiratory effort Auscultation: clear to auscultation bilaterally Cardio: Rate: regular rate Rhythm: regular rhythm Skin: General skin exam: normal color Extrem: General: normal to inspection Psych: Mental Status: mental status grossly normal Course Course Emergency Course: Tetracaine was used to numb the left eye and sliver of metal was removed, patient tolerated procedure well area did the eyes and looked carefully for any further debris. Patient has a sliver of metal that was removed from his left cornea at around the 6 o'clock position, tetanus was updated and antibiotic eye drop was administered. Vital Signs Vital signs: Vital Signs Temperature 36.6 C 05/12/23 10:29 Pulse Rate 68 05/12/23 10:29 Respiratory Rate 16 05/12/23 10:29 Blood Pressure 179/78 H 05/12/23 10:29 Pulse Oximetry 98 05/12/23 10:29 Oxygen Delivery Room Air 05/12/23 10:29 Temperature 36.6 C 05/12/23 10:29 Pulse Rate 68 05/12/23 10:29 Respiratory Rate 16 05/12/23 10:29 Blood Pressure 179/78 H 05/12/23 10:29 Pulse Oximetry 98 05/12/23 10:29 Oxygen Delivery Room Air 05/12/23 10:29 Critical Care Time Critical Care Time Critical Care Time: No Discharge Plan Discharge Clinical Impression: Foreign body behind the eye Qualifiers: Laterality: left Qualified Code(s): S05.42XA - Penetrating wound of orbit
[2023-05-12 11:03] VITALS: BP 159/69; PULSE 64; RESP 16; O2SAT 99
[2023-05-12] MEDS: NEOMYCIN/POLYMYXIN/HYDROCORT 7.5 ML EYE DROPS (*BKC) 1 DROP LEFT EYE (11:37)
[2023-05-12] MEDS: TETANUS,DIPHTHERIA,AC PERTUSSIS ADULT 0.5 ML (ADACEL) IM (11:37)
[2023-05-12 11:46] VITALS: BP 153/73; PULSE 57; RESP 18; TEMP 36.7; O2SAT 98
== END 2023-05-12 11:46 | disposition home or self-care (01) ==
PROVIDERS: Emergency Provider Emergency Medicine; PCP Internal Medicine
DX: S05.42XA Penetrating wound of orbit with or without foreign body, left eye, initial encounter (principal); I48.91 Unspecified atrial fibrillation; F32.A Depression, unspecified; I10 Essential (primary) hypertension; E11.9 Type 2 diabetes mellitus without complications; Z87.891 Personal history of nicotine dependence; Z23 Encounter for immunization; Z79.4 Long term (current) use of insulin; W45.8XXA Other foreign body or object entering through skin, initial encounter
CPT/HCPCS: 65220; 90471; 90715; 99283; A9270

== ENCOUNTER 2023-07-19 11:02 | Outpatient (CLI) | payer MEDICARE, SELFPAY ==
[2023-07-19 11:22] LABS: Basophils Absolute Auto 0.13 K/mm3 (0.00-0.10); Basophils Percent Auto 1.6 % (0.0-1.0); Eosinophils Absolute Auto 0.28 K/mm3 (0.02-0.50); Eosinophils Percent Auto 3.4 % (1.0-6.0); Hematocrit 40.2 % (37.0-46.0); Hemoglobin 13.5 g/dL (12.4-15.3); Immature Granulocyte Absolute 0.02 K/mm3 (0.00-0.00); Immature Granulocyte Percent A 0.2 % (0.0-0.0); Lymphocytes Absolute Auto 1.49 K/mm3 (1.10-4.50); Lymphocytes Percent Auto 18.2 % (18.0-42.0); Mean Corpuscular HGB Conc 33.6 g/dL (32.0-36.0); Mean Corpuscular Hemoglobin 30.6 pg (27.0-31.0); Mean Corpuscular Volume 91.2 fL (78.0-102.0); Monocytes Percent Auto 8.6 % (2.0-11.0); Neutrophils Absolute Auto 5.6 K/mm3 (1.7-7.2); Platelet Count Result 219 K/mm3 (150-420); Red Blood Count 4.41 M/mm3 (4.70-6.10); Red Cell Distribution Width 12.2 % (11.6-14.4); White Blood Count 8.2 K/mm3 (4.8-10.8)
[2023-07-19 11:26] LABS: Appearance Urine Clear (Clear); Bilirubin Urine Negative (Negative); Blood Urine Negative (Negative); Glucose Urine UA Negative (Negative); Ketones Urine Trace (Negative); Leukocyte Esterase Ur Negative (Negative); Nitrate Urine Negative (Negative); Protein Urine 3+ (Negative); Specific Grav Ur >= 1.030 (1.010-1.020); Urobilinogen Urine 0.2 mg/dL (0.2-1.0)
[2023-07-19 11:30] LABS: Add Urine Microscopic? YES; Color Urine Dark Yellow (Yellow); RBC Urine None seen /hpf (0-2)
[2023-07-19 11:31] LABS: Bacteria Urine Trace /hpf; WBC Urine None seen /hpf (0-3)
[2023-07-19 12:05] LABS: Alanine Aminotransferase 37 U/L (16-63); Albumin Level 3.6 g/dL (3.4-5.0); Alkaline Phosphatase 113 U/L (46-116); Anion Gap 5 mmol/L (8-16); Aspartate Amino Transferase 20 U/L (15-37); Bilirubin,Total 0.4 mg/dL (0.00-1.00); Blood Urea Nitrogen 20 mg/dL (7-18); Calcium 9.1 mg/dL (8.5-10.1); Carbon Dioxide 33 mmol/L (21-32); Chloride 101 mmol/L (98-108); Creatine Kinase 187 U/L (39-308); Estimated Glomerular Filt Rate > 60; Free T4 Free Thyroxine 0.98 ng/dL (0.76-1.46); Glucose 268 mg/dL (70-99); Magnesium 1.8 mg/dL (1.8-2.4); Osmolality Calculated 299 mOsm/kg (285-295); Sodium 139 mmol/L (136-145); Thyroid Stimulating Hormone 1.42 uIU/mL (0.36-3.74); Total Protein 6.4 g/dL (6.4-8.2)
[2023-07-19 12:09] LABS: CRP < 0.5 mg/dL (0.0-0.9)
[2023-07-19 14:07] LABS: Hemoglobin A1C 7.7 % (<5.7)
== END 2023-07-19 11:03 | disposition home or self-care (01) ==
LOC: CHSLAB 11:05
PROVIDERS: PCP Internal Medicine; Visit Provider Nurse Practitioner Family
DX: R73.09 Other abnormal glucose (principal); M79.10 Myalgia, unspecified site; R53.83 Other fatigue; I10 Essential (primary) hypertension
CPT/HCPCS: 36415; 80053; 81001; 82550; 83036; 83735; 84439; 84443; 85025; 86140; 87086

== ENCOUNTER 2023-09-15 21:34 | Emergency (ER) | payer MEDICARE, SELFPAY ==
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
[2023-09-15 21:35] VITALS: BP 171/66; PULSE 75; RESP 22; O2SAT 95
--- NOTE | 2023-09-15 21:39 | ECG_ITS ---
Measurements Intervals [place] Rate: 81 P: 53 [place]: 169 QRS: -38 QRSD: 91 T: -51 QT: 378 QTc: 440 Interpretive Statements SINUS RHYTHM MISSING LEAD V1 LEFT AXIS DEVIATION ST-T WAVE ABNORMALITY IN ANTEROLATERAL LEADS- CONSIDER ISCHEMIA BASELINE ARTIFACT- I, II, III, AVR, AVL, AVF, V2-V6 ABNORMAL ECG NO PREVIOUS ECG AVAILABLE FOR COMPARISON Electronically Signed On 09-16-2023 6:50:47 OB GYN PHYSICIAN ASSISTANT by Mike Camacho D.O.
[2023-09-15] MEDS: SODIUM CHLORIDE 0.9% IV 1,000 ML 999 ML IV CONT (21:47)
[2023-09-15] MEDS: ONDANSETRON INJ 4 MG/2 ML VIAL IV PUSH (21:47)
--- NOTE | 2023-09-15 22:13 | PC.NURSE ---
This RN called back to radiology, pt sitting up on table for CT and vomiting all over. Pt stating he doesn't want imaging and wants to go home. Pt is unable to make appropriate decisions as per ETOH at this time. Pt reassured and instructions given for need for CT scanning. Pt compliant p this RN and Dr Robin went to CT to talk c pt. Noted dark brown emesis all over scanning and Xray floor.
[2023-09-15 22:30] VITALS: BP 144/78; PULSE 90; RESP 18; O2SAT 98
[2023-09-15 22:34] LABS: Basophils Absolute Auto 0.16 K/mm3 (0.00-0.10); Basophils Percent Auto 1.4 % (0.0-1.0); Eosinophils Absolute Auto 0.28 K/mm3 (0.02-0.50); Eosinophils Percent Auto 2.4 % (1.0-6.0); Hematocrit 37.3 % (37.0-46.0); Hemoglobin 12.5 g/dL (12.4-15.3); Immature Granulocyte Absolute 0.11 K/mm3 (0.00-0.00); Immature Granulocyte Percent A 0.9 % (0.0-0.0); Lymphocytes Absolute Auto 2.76 K/mm3 (1.10-4.50); Lymphocytes Percent Auto 23.4 % (18.0-42.0); Mean Corpuscular HGB Conc 33.5 g/dL (32.0-36.0); Mean Corpuscular Volume 89.4 fL (78.0-102.0); Mean Platelet Volume 9.1 fl (8.7-11.0); Monocytes Absolute Auto 0.92 K/mm3 (0.10-0.90); Monocytes Percent Auto 7.8 % (2.0-11.0); Neutrophils Absolute Auto 7.6 K/mm3 (1.7-7.2); Neutrophils Percent Auto 64.1 % (50.0-70.0); Platelet Count Result 217 K/mm3 (150-420); Red Blood Count 4.17 M/mm3 (4.70-6.10); White Blood Count 11.8 K/mm3 (4.8-10.8)
--- NOTE | 2023-09-15 22:40 | PC.NURSE ---
Pt more alert p arrival back to ER from CT. Pts wounds cleansed and dressed on his face and he is cooperative and follows directions well c this RN. Explained to pt need to await CT scan results, he is wanting to go home and states nothing is wrong and that he drank too much. Pt reports being a previous drinker and that he quit for a while and then tonight he started again. Pt is able to give his hx and is able to answer questions apprpriately at this time.
[2023-09-15 22:45] LABS: Gastric Negative Control Negative; Gastric Positive Control Positive; Occult Blood Gastric Fluid Positive
--- NOTE | 2023-09-15 22:50 | PC.NURSE ---
Ccollar removed at this time per order of ERP that CT neck is cleared.
[2023-09-15 22:51] LABS: Prothrombin Time 10.6 Seconds (9.50-12.10)
[2023-09-15 23:03] LABS: Alanine Aminotransferase 26 U/L (16-63); Albumin Level 3.3 g/dL (3.4-5.0); Alkaline Phosphatase 94 U/L (46-116); Anion Gap 17 mmol/L (8-16); Aspartate Amino Transferase 16 U/L (15-37); Bilirubin,Total 0.2 mg/dL (0.00-1.00); Blood Urea Nitrogen 16 mg/dL (7-18); Calcium 8.4 mg/dL (8.5-10.1); Carbon Dioxide 19 mmol/L (21-32); Chloride 100 mmol/L (98-108); Creatine Kinase 107 U/L (39-308); Estimated CRCL calculation 72 ml/min; Estimated Glomerular Filt Rate > 60; Glucose 221 mg/dL (70-99); Osmolality Calculated 290 mOsm/kg (285-295); Potassium 3.9 mmol/L (3.5-5.1); Sodium 136 mmol/L (136-145); Total Protein 6.6 g/dL (6.4-8.2)
[2023-09-15 23:04] LABS: Ethanol 248 mg/dL (0-6)
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
[2023-09-15 23:15] VITALS: BP 134/76; PULSE 87; RESP 18; TEMP 36.6; O2SAT 96
--- NOTE | 2023-09-15 23:15 | PC.NURSE ---
ERP Dr Robin in to speak c pt about CT results and POC for home. Pt sitting up at bedside, alert and neuro WNL. Pt dressed self and signed d/c paperwork and stated understanding of f/u care.
[2023-09-16 01:33] LABS: Reflex Lactic Acid Yes or No Add Lactic
== END 2023-09-15 23:26 | disposition home or self-care (01) ==
PROVIDERS: Emergency Provider Emergency Medicine
DX: S00.01XA Abrasion of scalp, initial encounter (principal); F10.10 Alcohol abuse, uncomplicated; Y90.8 Blood alcohol level of 240 mg/100 ml or more; I48.91 Unspecified atrial fibrillation; E11.9 Type 2 diabetes mellitus without complications; I10 Essential (primary) hypertension; Z87.891 Personal history of nicotine dependence; Z79.4 Long term (current) use of insulin; Z79.899 Other long term (current) drug therapy; V29.99XA Rider (driver) (passenger) of other motorcycle injured in unspecified traffic accident, initial encounter
CPT/HCPCS: 36415; 70450; 70486; 71250; 72125; 74176; 80053; 80307; 82271; 82550; 83605; 83986; 85025; 85610; 85730; 93005; 96361; 96374; 99284; J2405; J7030; L0150

== ENCOUNTER 2023-12-29 09:26 | Outpatient (CLI) | payer MEDICARE, SELFPAY ==
[2023-12-29 09:51] LABS: Basophils Absolute Auto 0.15 K/mm3 (0.00-0.10); Basophils Percent Auto 1.6 % (0.0-1.0); Eosinophils Percent Auto 4.2 % (1.0-6.0); Hematocrit 37.3 % (37.0-46.0); Hemoglobin 12.4 g/dL (12.4-15.3); Immature Granulocyte Absolute 0.06 K/mm3 (0.00-0.00); Immature Granulocyte Percent A 0.6 % (0.0-0.0); Lymphocytes Absolute Auto 1.95 K/mm3 (1.10-4.50); Lymphocytes Percent Auto 20.6 % (18.0-42.0); Mean Corpuscular HGB Conc 33.2 g/dL (32-36); Mean Corpuscular Hemoglobin 30.3 pg (27.0-31.0); Mean Corpuscular Volume 91.2 fL (78.0-102.0); Mean Platelet Volume 9.1 fl (8.7-11.0); Monocytes Absolute Auto 1.05 K/mm3 (0.10-0.90); Monocytes Percent Auto 11.1 % (2.0-11.0); Neutrophils Absolute Auto 5.84 K/mm3 (1.70-7.20); Neutrophils Percent Auto 61.9 % (50.0-70.0); Platelet Count Result 217 K/mm3 (150-420); Red Blood Count 4.09 M/mm3 (4.70-6.10); Red Cell Distribution Width 12.5 % (11.6-14.4); White Blood Count 9.5 K/mm3 (4.8-10.8)
[2023-12-29 09:58] LABS: Hemoglobin A1C 7.8 % (<5.7)
[2023-12-29 11:01] LABS: Alanine Aminotransferase 23 U/L (16-63); Albumin Level 3.4 g/dL (3.4-5.0); Alkaline Phosphatase 101 U/L (46-116); Anion Gap 7 mmol/L (4-12); Aspartate Amino Transferase 15 U/L (15-37); Bilirubin,Total 0.2 mg/dL (0.00-1.00); Blood Urea Nitrogen 17 mg/dL (7-18); Carbon Dioxide 30 mmol/L (21-32); Chloride 103 mmol/L (98-108); Cholesterol 224 mg/dL (0-200); Estimated Glomerular Filt Rate > 60; Glucose 168 mg/dL (70-99); HDL Direct 57 mg/dL (40-60); LDL Cholesterol Calculated 160 mg/dL (<130); Osmolality Calculated 295 mOsm/kg (285-295); Potassium 4.7 mmol/L (3.5-5.1); Sodium 140 mmol/L (136-145); Thyroid Stimulating Hormone 1.81 uIU/mL (0.36-3.74); Total Protein 6.1 g/dL (6.4-8.2); Triglycerides 36 mg/dL (0-150)
== END 2023-12-29 09:27 | disposition home or self-care (01) ==
LOC: CHSLAB 09:29
PROVIDERS: PCP Internal Medicine; Visit Provider Internal Medicine
DX: E11.9 Type 2 diabetes mellitus without complications (principal); E78.5 Hyperlipidemia, unspecified; I10 Essential (primary) hypertension
CPT/HCPCS: 36415; 80053; 80061; 83036; 84443; 85025

== ENCOUNTER 2024-06-14 10:56 | Emergency (ER) | payer MEDICARE, SELFPAY ==
--- NOTE | ~2024-06-14 | XR_ITS ---
XR shoulder LT min 2V Ordering provider: Viet Robin MD History: . shoulder injury,FALL OFF LADDER X2DAYS AGO . Comparison: August 19, 2020 FINDINGS: BONES: No acute fracture or dislocation. Elevation of the humeral head is noted. JOINT SPACES: The acromioclavicular joint shows osteoarthritic changes. The glenohumeral joint shows osteoarthritic changes. SOFT TISSUES: Normal. IMPRESSION: No acute osseous abnormality left shoulder. Reviewed, dictated and finalized at location A.
[2024-06-14 11:00] VITALS: BP 172/71; PULSE 71; RESP 18; TEMP 36.7; O2SAT 98
--- NOTE | 2024-06-14 11:06 | ECG_ITS ---
Test Date: 2024-06-14 11:22:19 Measurements Intervals [place] Rate: 68 P: 76 [place]: 155 QRS: -1 QRSD: 92 T: 46 QT: 355 QTc: 379 Interpretive Statements SINUS RHYTHM MINOR ST SEGMENT ABNORMALITY BORDERLINE ECG No previous ECG available for comparison Electronically Signed On 06-15-2024 12:42:37 CDT by Viet Shin M.D.
--- NOTE | 2024-06-14 11:13 | ED.EXTPRO ---
HPI - Extremity Problem General Chief complaint: Extremity Problem,Nontraumatic Stated complaint: shoulder pain Time Seen by Provider: 06/14/24 11:06 Source: patient Mode of arrival: ambulatory Limitations: no limitations History of Present Illness HPI Narrative: This is a 69-year-old male who presents with some left shoulder pain after fall off a ladder approximately 3 days ago has a history of heart disease with stents and has been having pain in his left shoulder and atypical pain in to his left upper chest area with no shortness of breath no diaphoresis no nausea vomiting. There is no abdominal pain no fever chills. Complaint: extremity pain Onset (ago): day(s) Pain Consistency: constant Location: left Severity scale (1-10): 5 Quality: aching Radiation: proximal Relieving factors: immobilization Associated symptoms: chest pain Related Data Home Medications Medication Instructions Recorded Confirmed blood sugar diagnostic (OneTouch 09/14/22 06/14/24 Ultra Test strips) buspirone 10 mg tablet 20 mg PO BID 09/14/22 09/14/22 fluoxetine 20 mg capsule 60 mg PO DAILY 09/14/22 09/14/22 insulin aspart U-100 100 unit/mL See Rx Instructions .Route .COMPLEX 09/14/22 09/14/22 (3 mL) subcutaneous pen (Novolog FlexPen U-100 Insulin aspart) insulin glargine 100 unit/mL (3 30 unit subcut HS 09/14/22 09/14/22 mL) subcutaneous pen (Basaglar KwikPen U-100 Insulin) lisinopril 10 mg tablet 10 mg PO DAILY 09/14/22 09/14/22 Allergies Allergy/AdvReac Type Severity Reaction Status Date / Time quetiapine [From Seroquel] Allergy Hallucinati Verified 06/14/24 11:04 ng Review of Systems Review of Systems: All systems reviewed & are unremarkable except as noted in HPI and below PMFSH Past Medical History Medical History Atrial fibrillation Depression Diabetes Hypertension Surgical History Surgical History H/O cardiac radiofrequency ablation Social History Social History Smoking status: Former smoker Tobacco type: cigarettes Additional smoking assessment comments: says he quit 2 weeks ago Exam Const: General: healthy appearing, no acute distress and alert Nutritional Appearance: well nourished Limitations: no limitations Chest: Chest palpation & inspection: normal inspection of the chest Resp: Effort & Inspection: normal respiratory effort Auscultation: clear to auscultation bilaterally Cardio: Rate: regular rate Rhythm: regular rhythm GI: GI Palp: Yes Soft to palpation Auscultation: normal bowel sounds Skin: General skin exam: normal color Rashes: no rashes Neuro: General: patient oriented x3 and moves all extremities Extrem: Other: Tender in the left shoulder bicipital area and tenderness in the left upper chest area with palpation Course Course Emergency Course: EKG reviewed X-ray performed on the left shoulder reviewed Blood work reviewed Patient received 600mg dose of p.o. Motrin. Vital Signs Vital signs: Vital Signs Oxygen Delivery Room Air 06/14/24 10:56 Temperature 36.7 C 06/14/24 11:00 Pulse Rate 71 06/14/24 11:00 Respiratory Rate 18 06/14/24 11:00 Blood Pressure 172/71 H 06/14/24 11:00 Pulse Oximetry 98 06/14/24 11:00 Oxygen Delivery Room Air 06/14/24 11:00 MDM - Extremity (Nontraumatic) Lab Data 06/14/24 11:19 06/14/24 11:19 Labs: Lab Results 06/14/24 Range/Units 11:19 WBC 9.3 (4.8-10.8) K/mm3 RBC 4.32 L (4.70-6.10) M/mm3 Hgb 13.2 (12.4-15.3) g/dL Hct 39.1 (37.0-46.0) % MCV 90.5 (78.0-102.0) fL MCH 30.6 (27.0-31.0) pg MCHC 33.8 (32-36) g/dL RDW 12.6 (11.6-14.4) % Plt Count 228 (150-420) K/mm3 MPV 8.3 L (8.7-11.0) fl Immature Gran % (Auto) 0.4 H (0.0-0.0) % Neut % (Auto)
[2024-06-14] MEDS: IBUPROFEN 600 MG TABLET PO (11:16)
[2024-06-14 11:25] LABS: Basophils Absolute Auto 0.13 K/mm3 (0.00-0.10); Basophils Percent Auto 1.4 % (0.0-1.0); Eosinophils Absolute Auto 0.33 K/mm3 (0.02-0.50); Eosinophils Percent Auto 3.6 % (1.0-6.0); Hematocrit 39.1 % (37.0-46.0); Hemoglobin 13.2 g/dL (12.4-15.3); Immature Granulocyte Absolute 0.04 K/mm3 (0.00-0.00); Immature Granulocyte Percent A 0.4 % (0.0-0.0); Lymphocytes Absolute Auto 1.77 K/mm3 (1.10-4.50); Lymphocytes Percent Auto 19.1 % (18.0-42.0); Mean Corpuscular HGB Conc 33.8 g/dL (32-36); Mean Corpuscular Hemoglobin 30.6 pg (27.0-31.0); Mean Corpuscular Volume 90.5 fL (78.0-102.0); Mean Platelet Volume 8.3 fl (8.7-11.0); Monocytes Absolute Auto 0.95 K/mm3 (0.10-0.90); Monocytes Percent Auto 10.3 % (2.0-11.0); Neutrophils Absolute Auto 6.03 K/mm3 (1.70-7.20); Neutrophils Percent Auto 65.2 % (50.0-70.0); Platelet Count Result 228 K/mm3 (150-420); Red Blood Count 4.32 M/mm3 (4.70-6.10); Red Cell Distribution Width 12.6 % (11.6-14.4); White Blood Count 9.3 K/mm3 (4.8-10.8)
[2024-06-14 11:30] VITALS: PULSE 63; RESP 18
[2024-06-14 11:42] LABS: Alanine Aminotransferase 27 U/L (16-63); Albumin Level 3.4 g/dL (3.4-5.0); Alkaline Phosphatase 108 U/L (46-116); Anion Gap 5 mmol/L (4-12); Aspartate Amino Transferase 16 U/L (15-37); Bilirubin,Total 0.3 mg/dL (0.00-1.00); Blood Urea Nitrogen 19 mg/dL (7-18); Calcium 9.1 mg/dL (8.5-10.1); Carbon Dioxide 31 mmol/L (21-32); Chloride 103 mmol/L (98-108); Estimated CRCL calculation 45 ml/min; Estimated Glomerular Filt Rate 51; Glucose 153 mg/dL (70-99); Osmolality Calculated 293 mOsm/kg (285-295); Sodium 139 mmol/L (136-145); Total Protein 6.6 g/dL (6.4-8.2); Troponin I 13.1 ng/L (0.00-60.4)
[2024-06-14 11:45] VITALS: PULSE 63; RESP 21
[2024-06-14 11:55] VITALS: BP 166/69; PULSE 59; RESP 18; O2SAT 98
== END 2024-06-14 11:55 | disposition home or self-care (01) ==
PROVIDERS: Emergency Provider Emergency Medicine; PCP Internal Medicine
DX: S46.912A Strain of unspecified muscle, fascia and tendon at shoulder and upper arm level, left arm, initial encounter (principal); I48.91 Unspecified atrial fibrillation; E11.9 Type 2 diabetes mellitus without complications; I10 Essential (primary) hypertension; Z87.891 Personal history of nicotine dependence; W11.XXXA Fall on and from ladder, initial encounter
CPT/HCPCS: 36415; 73030; 80053; 84484; 85025; 93005; 99284; A9270

== ENCOUNTER 2024-06-20 10:14 | Outpatient (CLI) | payer MEDICARE, SELFPAY ==
--- NOTE | ~2024-06-20 | XR_ITS ---
XR_CERV2-3V_CR Ordering provider: Kale Ferrari MD History: . radiculopathy,FALL OFF LADDER X1MO AGO,HURTS TO TURN HEAD . Comparison: None. FINDINGS: VERTEBRAL BODIES: Normal height and alignment. No visible fracture or subluxation. The dens is intact . Degenerative changes of spine. DISK SPACES: Narrowing of the disc C6-C7. Multilevel uncovertebral joint osteoarthritic changes. Multilevel facet joint disease. PARASPINOUS SOFT TISSUES: No prevertebral soft tissue swelling. Bilateral carotid atherosclerotic qiana nges. IMPRESSION: No acute osseous abnormality cervical spine. Reviewed, dictated and finalized at location A.
[2024-06-20 10:31] LABS: Basophils Absolute Auto 0.13 K/mm3 (0.00-0.10); Basophils Percent Auto 1.3 % (0.0-1.0); Eosinophils Absolute Auto 0.36 K/mm3 (0.02-0.50); Eosinophils Percent Auto 3.5 % (1.0-6.0); Hematocrit 42.1 % (37.0-46.0); Hemoglobin 14.2 g/dL (12.4-15.3); Immature Granulocyte Absolute 0.08 K/mm3 (0.00-0.00); Immature Granulocyte Percent A 0.8 % (0.0-0.0); Lymphocytes Absolute Auto 2.14 K/mm3 (1.10-4.50); Mean Corpuscular HGB Conc 33.7 g/dL (32-36); Mean Corpuscular Hemoglobin 30.6 pg (27.0-31.0); Mean Corpuscular Volume 90.7 fL (78.0-102.0); Mean Platelet Volume 8.7 fl (8.7-11.0); Monocytes Absolute Auto 0.96 K/mm3 (0.10-0.90); Monocytes Percent Auto 9.4 % (2.0-11.0); Neutrophils Absolute Auto 6.51 K/mm3 (1.70-7.20); Platelet Count Result 248 K/mm3 (150-420); Red Blood Count 4.64 M/mm3 (4.70-6.10); Red Cell Distribution Width 12.4 % (11.6-14.4); White Blood Count 10.2 K/mm3 (4.8-10.8)
[2024-06-20 10:37] LABS: Appearance Urine Clear (Clear); Bilirubin Urine Negative (Negative); Blood Urine Negative (Negative); Glucose Urine UA Negative (Negative); Ketones Urine Trace (Negative); Leukocyte Esterase Ur Negative (Negative); Nitrate Urine Negative (Negative); Protein Urine 2+ (Negative); Specific Grav Ur >= 1.030 (1.010-1.020); Urobilinogen Urine 0.2 mg/dL (0.2-1.0)
[2024-06-20 10:38] LABS: Add Urine Microscopic? YES; Color Urine Yellow (Yellow)
[2024-06-20 10:42] LABS: RBC Urine None seen /hpf (0-2); Squamous Epithelial Cell Urine Occasional /hpf (Few); WBC Urine None seen /hpf (0-3)
[2024-06-20 10:43] LABS: Bacteria Urine None seen /hpf
[2024-06-20 14:03] LABS: Alanine Aminotransferase 28 U/L (16-63); Albumin Level 3.9 g/dL (3.4-5.0); Alkaline Phosphatase 110 U/L (46-116); Anion Gap 7 mmol/L (4-12); Aspartate Amino Transferase 16 U/L (15-37); Bilirubin,Total 0.4 mg/dL (0.00-1.00); Blood Urea Nitrogen 24 mg/dL (7-18); CRP < 0.5 mg/dL (0.0-0.9); Calcium 9.5 mg/dL (8.5-10.1); Carbon Dioxide 29 mmol/L (21-32); Chloride 104 mmol/L (98-108); Cholesterol 241 mg/dL (0-200); Estimated Glomerular Filt Rate > 60; Glucose 86 mg/dL (70-99); HDL Direct 53 mg/dL (40-60); LDL Cholesterol Calculated 167 mg/dL (<130); Osmolality Calculated 293 mOsm/kg (285-295); Potassium 5.3 mmol/L (3.5-5.1); Sodium 140 mmol/L (136-145); Thyroid Stimulating Hormone 2.17 uIU/mL (0.36-3.74); Total Protein 6.9 g/dL (6.4-8.2); Triglycerides 103 mg/dL (0-150)
[2024-06-20 14:12] LABS: Hemoglobin A1C 6.6 % (<5.7)
[2024-06-20 14:15] LABS: Creatinine Urine 263.52 mg/dL (40-278)
[2024-06-20 14:17] LABS: MALB Creatinine Ratio 151.7 mg/g (0-30); Microalbumin Urine Random > 400.0 mg/L
== END 2024-06-20 10:15 | disposition home or self-care (01) ==
PROVIDERS: PCP Internal Medicine; Visit Provider Internal Medicine
DX: M54.12 Radiculopathy, cervical region (principal); E11.9 Type 2 diabetes mellitus without complications
CPT/HCPCS: 36415; 72040; 80053; 80061; 81001; 82043; 83036; 84443; 85025; 86140

== ENCOUNTER 2024-06-27 09:44 | Outpatient (RCR) | payer MEDICARE, SELFPAY ==
--- NOTE | 2024-06-27 11:03 | OPREHPOC ---
Outpatient Therapy Plan of Care This is a Multidisciplinary Plan of Care that may contain components documented by all disciplines (PT, OT, and ST.) PT Problem 1 PT Problem #1 Knowledge Deficit PT Goal 1 Goal / Goal Update 1. independent and compliant with HEP Target Visit 4 PT Problem 2 PT Problem #2 Pain PT Goal 1 Goal / Goal Update 1. decrease pain at worst to 2/10 or less in the neck and L UE. Target Visit 9 PT Problem 3 PT Problem #3 Impaired Range of Motion PT Goal 1 Goal / Goal Update 1. improve L side bending cervical rom to 30 degrees without pain/symptoms 2. bilateral cervical rotation to improve to 70 degrees without symptoms Target Visit 9 PT Problem 4 PT Problem #4 Impaired Strength PT Goal 1 Goal / Goal Update 1. 5/5 L shoulder strength 2. 5/5 L elbow strength 3. 85lbs or better L car repairer pullman strength Target Visit 9 PT Problem 5 PT Problem #5 Impaired Functional Mobil PT Goal 1 Goal / Goal Update 1. NDI to display 10% or less functional deficits 2. patient to report reduction of symptoms to the L shoulder or further centralized 3. return to prior level gym activities without limitations Target Visit 9
--- NOTE | 2024-06-27 11:03 | PTOPEVAL1 ---
Assessment and note entered by JT File, PT Evaluation Information Assessment Status Evaluation Diagnosis C6-7 disc disease ICD-10 Condition Codes (PT) Cervicalgia M54.2 Onset 06/14/24 Subjective Information patient reports he has been having pain in the neck, L shoulder, and L arm for the last 3 weeks. he reports he has L arm weakness. he reports he can only lift about 1/2 the weight in the L that he can with the R. he reports the R side is not affected at all. he reports his symptoms do go down to the L hand. he reports he has had an xray of the neck, but no MRI as of this date. he reports he has not been referred to any other specialists at this time. he reports he was put on a steroid dose pack. he reports he finished it yesterday. he reports he is retired. he reports he tries to work out daily, but his L UE weakness and symptoms have interfered with this ability. he reports the pain began after he fell off a ladder when he was working on a neighbors roof. he reports he landed on his back. he reports laying flat on his back will make his symptoms worse. Reported Pain Level Pain Score 2: Self Report Assessment PT Clinical Summary mr. marti is a 69 yo man who presents to skilled PT services for evaluation and treatment of cervical radiculopathy following a fall. 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 he would benefit from continued skilled PT to address his objective/ functional deficits and return to prior level functional activity performance and quality of life. Plan of Care Interventions Electrical Stimulation,Hot Pack/Cold Pack,Manual Therapy,Mechanical Traction,Neuro Re-education, Patient/Caregiver Educati,Therapeutic Activities, Therapeutic Exercise PT Services Indicated Yes Treatment Frequency and 3x weekly for 9 visits Duration These treatments will address the objective and functional deficits as defined above. The patient will be advanced safely and appropriately in order for the patient to progress towards his/her prior level of function. Additional exercises will be introduced and as well as a comprehensive home exercise program upon discharge, if needed, ?to ensure carryover of functional gains achieved in the clinic. This treatment plan has been reviewed and agreement upon by the patient.
--- NOTE | 2024-07-13 10:13 | PCPTNOTE ---
Cancelled session. Notes he has a hole in his roof and someone is coming to look at it today.
--- NOTE | 2024-07-31 13:57 | OPREHPOC ---
Outpatient Therapy Plan of Care This is a Multidisciplinary Plan of Care that may contain components documented by all disciplines (PT, OT, and ST.) PT Problem 1 PT Problem #1 Knowledge Deficit PT Goal 1 Goal / Goal Update 1. independent and compliant with HEP Target Visit 4 Progress Met PT Problem 2 PT Problem #2 Pain PT Goal 1 Goal / Goal Update 1. decrease pain at worst to 2/10 or less in the neck and L UE. Target Visit 9 Progress Met PT Problem 3 PT Problem #3 Impaired Range of Motion PT Goal 1 Goal / Goal Update 1. improve L side bending cervical rom to 30 degrees without pain/symptoms 2. bilateral cervical rotation to improve to 70 degrees without symptoms Target Visit 9 Progress Not Met PT Problem 4 PT Problem #4 Impaired Strength PT Goal 1 Goal / Goal Update 1. 5/5 L shoulder strength 2. 5/5 L elbow strength 3. 85lbs or better L reimbursement representative strength Target Visit 9 Progress Not Met PT Problem 5 PT Problem #5 Impaired Functional Mobil PT Goal 1 Goal / Goal Update 1. NDI to display 10% or less functional deficits 2. patient to report reduction of symptoms to the L shoulder or further centralized. not met 3. return to prior level gym activities without limitations. not met Target Visit 9 Progress Not Met
--- NOTE | 2024-07-31 13:57 | PTOPREEVAL ---
Assessment and note entered by JT File, PT Evaluation Information Assessment Status Re-evaluation Diagnosis C6-7 disc disease ICD-10 Condition Codes (PT) Cervicalgia M54.2 Onset 06/14/24 Subjective Information patient reports he does feel better overall since starting therapy, but reports today he has begun having some issues with his L wrist. patient reports his weakness of the L arm still goes to the elbow. patient has returned to the gym, but reports he is still limited by weakness of the L UE, especially the triceps. Reported Pain Level Pain Score 1: Self Report Assessment PT Clinical Summary mr. marti presents to skilled PT for his 9th skilled PT visit. he presents today with slight improvements in L silk conditioner strength and functional UE use/performance. however, his L triceps is still significantly weaker, and his silk conditioner is significantly weaker on the L side compared to the R. patient would benefit from return to MD at this time to request an MRI of the neck to evaluate the needs for any cervical injection or surgery. Plan of Care Interventions Electrical Stimulation,Hot Pack/Cold Pack,Manual Therapy,Mechanical Traction,Neuro Re-education, Patient/Caregiver Educati,Therapeutic Activities, Therapeutic Exercise PT Services Indicated Yes Treatment Frequency and hold therapy at this time. follow up with MD to Duration request MRI. These treatments will address the objective and functional deficits as defined above. The patient will be advanced safely and appropriately in order for the patient to progress towards his/her prior level of function. Additional exercises will be introduced and as well as a comprehensive home exercise program upon discharge, if needed, ?to ensure carryover of functional gains achieved in the clinic. This treatment plan has been reviewed and agreement upon by the patient.
--- NOTE | 2024-09-12 14:52 | OPREHPOC ---
Outpatient Therapy Plan of Care This is a Multidisciplinary Plan of Care that may contain components documented by all disciplines (PT, OT, and ST.) PT Problem 1 PT Problem #1 Knowledge Deficit PT Goal 1 Goal / Goal Update 1. independent and compliant with HEP Target Visit 4 Progress Met PT Problem 2 PT Problem #2 Pain PT Goal 1 Goal / Goal Update 1. decrease pain at worst to 2/10 or less in the neck and L UE. Target Visit 9 Progress Met PT Problem 3 PT Problem #3 Impaired Range of Motion PT Goal 1 Goal / Goal Update 1. improve L side bending cervical rom to 30 degrees without pain/symptoms 2. bilateral cervical rotation to improve to 70 degrees without symptoms Target Visit 9 Progress Not Met PT Problem 4 PT Problem #4 Impaired Strength PT Goal 1 Goal / Goal Update 1. 5/5 L shoulder strength 2. 5/5 L elbow strength 3. 85lbs or better L commercial art instructor strength Target Visit 9 Progress Not Met PT Problem 5 PT Problem #5 Impaired Functional Mobility PT Goal 1 Goal / Goal Update 1. NDI to display 10% or less functional deficits 2. patient to report reduction of symptoms to the L shoulder or further centralized. not met 3. return to prior level gym activities without limitations. not met Target Visit 9 Progress Not Met
--- NOTE | 2024-09-12 14:52 | PTOPDC ---
Assessment and note entered by JT File, PT Evaluation Information Assessment Status Discharge - Pt Not Present Diagnosis C6-7 disc disease ICD-10 Condition Codes (PT) Cervicalgia M54.2 Onset 06/14/24 Subjective Information . Assessment PT Clinical Summary patient was called earlier this week, and he reports he is doing well. he would like to be DC'd from skilled PT services. all progress towards goals will be taken from his most recent evaluation/note, and patient will be DC'd as of today. Plan of Care PT Services Indicated Yes
== END 2024-07-31 15:00 | disposition home or self-care (01) ==
LOC: CHSPT 09:44
PROVIDERS: Visit Provider Internal Medicine
DX: M50.323 Other cervical disc degeneration at C6-C7 level (principal)
CPT/HCPCS: 97012; 97014; 97110; 97140; 97161; G0283

== ENCOUNTER 2024-07-03 15:18 | Outpatient (CLI) | payer MEDICARE, SELFPAY | END 2024-07-03 15:19 | disposition home or self-care (01) | LOC: CHSLAB 15:20 | PROVIDERS: PCP Specialist; Visit Provider Specialist | DX: C44.229 Squamous cell carcinoma of skin of left ear and external auricular canal (principal) | CPT/HCPCS: 88305; 88342 ==

== ENCOUNTER 2024-08-25 09:33 | Outpatient (CLI) | payer MEDICARE, SELFPAY ==
--- NOTE | ~2024-08-25 | MR_ITS ---
EXAMINATION: MR cervical spine wo con DATE: 08/25/2024 10:26 INDICATION: Neck pain. Left arm pain. TECHNIQUE: Magnetic resonance imaging (MRI) of the cervical spine was performed without intravenous c ontrast. Sequences included sagittal T2-weighted FSE, sagittal T2-weighted FS FSE, sagittal T1-weight ed FSE, axial MERGE, and axial T2-weighted FSE. COMPARISON: Cervical spine radiographs 06/20/2024 FINDINGS: There is 3 degrees dextrocurvature of cervical spine. Vertebral body heights are normal. Th ere is mildly decreased disc height at C5-C6 and moderately decreased disc height at C6-C7. The spina l cord signal intensity is normal. The following disc levels are specifically discussed: C2-C3: The disc does not extend beyond the endplate margin. There is no uncovertebral joint osteoarth ritis. There is mild right and moderate left facet joint osteoarthritis. There is no neural foraminal stenosis. There is no central canal stenosis. C3-C4: There is a right central protrusion. There is moderate right and mild left uncovertebral joint osteoarthritis. There is mild right and moderate left facet joint osteoarthritis. There is mild bila teral neural foraminal stenosis. There is mild central canal stenosis. C4-C5: The disc is bulging. There is mild bilateral uncovertebral joint osteoarthritis. There is mode rate bilateral facet joint osteoarthritis. There is moderate bilateral neural foraminal stenosis. The re is mild central canal stenosis. C5-C6: The disc is bulging. There is severe bilateral uncovertebral joint osteoarthritis. There is se terence right and mild left facet joint osteoarthritis. There is moderate bilateral neural foraminal mary nosis. There is mild central canal stenosis. C6-C7: The disc is bulging. There is severe bilateral uncovertebral joint osteoarthritis. There is mo derate bilateral facet joint osteoarthritis. There is moderate bilateral neural foraminal stenosis. T here is mild central canal stenosis. C7-T1: There is a central protrusion. There is mild bilateral uncovertebral joint osteoarthritis. The re is mild right and moderate left facet joint osteoarthritis. There is mild bilateral neural foramin al stenosis. There is no central canal stenosis. IMPRESSION: 1. Moderate cervical spondylosis. Reviewed, dictated and finalized at location A. REPAIRER
== END 2024-08-25 09:34 | disposition home or self-care (01) ==
PROVIDERS: PCP Internal Medicine; Visit Provider Internal Medicine
DX: M43.02 Spondylolysis, cervical region (principal)
CPT/HCPCS: 72141

== ENCOUNTER 2024-09-25 14:58 | Outpatient (CLI) | payer MEDICARE, SELFPAY ==
--- OUTSIDE RECORDS SUMMARY | 2024-09-27 19:26 | XMS_ITS | Encounter Summary ---
Author Organization [facility] Address [address] [place] [address]. [place], [place] [id number] [place] [id number] Care Team Providers Care Casino Shift Manager Name Role Phone Kale Ferrari MD Primary Care Provider [phone] Maria Fernanda Guerra APRN, MATCH MAKER-C Unavailable Encounter Details Date Type Department Care Team (Late st Contact Info) Description 05/05/2020 Hospital Orders Only [facility] Anesthesia [address] [place] [address] Gavi Matthews Anesthesia Record Procedure Summary Procedure Name Responsible Anesthesiologist Anesthesia Start Time Anesthesia Stop Time XA AFLUTTER ABLATION Prashant Peralta MD 05/06/20 0805 05/06/20 1108 Events Date Time Event Comment 05/06/2020 0724 0724 AN Anesthesia Prepped 0805 An Start Patient ID and consent checked and patient reassessed. 0805 An Start Data 0809 Face Mask Applied 0829 Quick Note Pt coughing and unable to lay supine. Approximately 100 cc brown tinged sputum suctioned. Dr. Peralta notified and will evaluate. 0829 Anesthesia Ready 0836 Quick Note Pt continues to cough. Moved to stretcher and HOB elevated with some relief of coughing. 0910 An Defib 1057 an stop data 1101 Quick Note Pt alert and co nversive 1108 Post Anesthetic Care Handoff I completed my handoff to the receiving nurse during which we: 1. Identified the patient 2. Identified the responsible provider 3. Reviewed the pertinent medical history 4. Discussed the surgical course 5. Reviewed intra-op anesthesia management and issues during anesthesia 6. Set expectations for post-procedure period 7. Allowed opportunity for questions and acknowledgement of understanding. 1108 An Stop Meds * Agents No agents on file. * Blood No blood administrations on file. Lines, Drains, and Airways Type Details Placement Removal Peripheral IV Placement Date: 05/06/20; Placement Time: 629; Placed Outside of This Facility?: No; Size: 20 G; Orientation: Left; Location: Antecubital; Removal Date: 08/05/20; Removal Time: 160; Removal Reason: D/C'd Prior to This Admission 05/06/20 0630 by Courtney Vincent RN 08/05/20 1603 by Juana Preston RN Supraglottic Airway Placement Date: 05/06/20; Placement Time: 806; Airway Device: Facemask; Removal Date: 08/06/20; Removal Time: 1447 05/06/20 0807 by Mirian Espinoza CRNA 08/06/20 1447 by Beronica Alfonso CRNA documented in this encounter Social History Tobacco Use Types Packs/Day Years Used Date Smoking Tobacco: Every Day Cigars Smokeless Tobacco: Never Alcohol Use Standard Drinks/Week Comments Yes 0 (1 standard drink = 0.6 oz pur e alcohol) copious amounts daily Sex and Gender Information Value Date Recorded Sex Assigned at Not on file Legal Sex Male 3:52 PM CDT Gender Identity Not on file Sexual Orientation Not on file COVID-19 Exposure Response Date Recorded In the last month, have you been in contact with someone who was confirmed or suspected to have Coronavirus / COVID-19? No / Unsure 05/06/2020 6:15 AM CDT documented as of this encounter Plan of Treatment Not on file documented as of this encounter Visit Diagnoses Not on filedocumented in this encounter Additional Health Concerns Infection Onset Date Last Indicated Resolved Time COVID-19 Rule Out 08/04/2020 08/04/2020 08/04/2020 5:18 PM INSPECTOR BOILER COVID-19 Rule Out 08/06/2020 08/06/2020 08/07/2020 6:42 AM INSPECTOR BOILER COVID-19 Rule Out 11/03/2020 11/03/2020 11/03/2020 4:58 PM INSPECTOR BOILER COVID-19 Rule Out 02/10/2021 02/10/202102/1002/10/2021 7:35 PM CDT documented as of this encounter Care Teams Casino Shift Manager Relationship Specialty Start Date End Date Kale Ferrari MD [address] [place] [address] PCP - General INTERNAL MEDICINE 11/19/19 Maria Fernanda Guerra, JENNY, MATCH MAKER-C [address] [facility] [address] [place] [address] NURSE PRACTITIONER 03/10/20 documented as of this encounter
--- OUTSIDE RECORDS SUMMARY | 2024-09-27 19:26 | XMS_ITS | Encounter Summary ---
Author Organization [facility] Address [address] [place] [address]. [place], [place] [id number] [place] [address] Care Team Providers Care Handhole Machine Operator Name Role Phone Kale Ferrari MD Primary Care Provider [phone] Maria Fernanda Guerra APRN, DISH NETWORK INSTALLER-C Unavailable Encounter Details Date Type Department Care Team (Late st Contact Info) Description 03/11/2020 Abstract [facility] [address] [place] [id number] Abstract, Doc [facility] Social History Tobacco Use Types Packs/Day Years Used Date Smoking Tobacco: Every Day Cigars Smokeless Tobacco: Never Alcohol Use Standard Drinks/Week Comments Yes 0 (1 standard drink = 0.6 oz pur e alcohol) Sex and Gender Information Value Date Recorded Sex Assigned at Not on file Legal Sex Male 3:52 PM CDT Gender Identity Not on file Sexual Orientation Not on file COVID-19 Exposure Response Date Recorded In the last month, have you been in contact with someone who was confirmed or suspected to have Coronavirus / COVID-19? No / Unsure 03/10/2020 2:08 PM CDT documented as of this encounter Plan of Treatment Not on file documented as of this encounter Procedures Procedure Name Priority Date/Time Associated Diagnosis Comments CMP (ABSTRACTED LAB) Routine 02/19/2020 CBC W/ MANUAL DIFF (OUTSIDE) Routine 02/19/2020 LIPID PANEL Routine 02/19/2020 documented in this encounter Results * CBC W/ MANUAL DIFF (OUTSIDE) (02/19/2020) WBC 10.8 RBC 4.82 HGB 15.2 HCT 43.5 MCV 90.2 MCH 31.5 MCHC 34.9 RDW 12.8 PLT 212 MPV 8.9 NEUTROPHILS % 56.6 LYMPHOCYTES % 25.9 MONOCYTES % 10.2 EOSINOPHILS % 5.0 BASOPHILS % 1.6 ABS. NEUTROPHILS 6.1 ABS. LYMPHOCYTES 2.80 ABS. MONOCYTES 1.11 ABS. EOSINOPHILS 0.54 ABS. BASOPHILS 0.17 02/19/2020 us Kale Ferrari MD LABORATORY Final Result * LIPID PANEL (02/19/2020) CHOLESTEROL 152 HDL 56 TRIGLYCERIDES 42 LDL (CALCULATED) 98 02/19/2020 us Kale Ferrari MD LABORATORY Final Result * CMP (ABSTRACTED LAB) (02/19/2020) SODIUM S/P/B 140 POTASSIUM S/P/B 4.8 CHLORIDE S/P/B 103 CO2 31 BUN 20 CREATININE S/P/B 1.04 0.7 - 1.3 EGFR NON-AFR. AMER. >60 <=90 CALCIUM S/P/B 8.9 GLUCOSE 148 mg/dL TOTAL PROTEIN S/P/B 6.3 ALBUMIN S/P/B 3.6 3.5 - 5.0 AST 15 ALT 22 ALKALINE PHOSPHATASE S/P/B 95 BILIRUBIN TOTAL S/P/B 0.4 02/19/2020 us Kale Ferrari MD LAB-OUTSIDE/ABSTRACTED Final Re sult documented in this encounter Visit Diagnoses Not on filedocumented in this encounter Additional Health Concerns Infection Onset Date Last Indicated Resolved Time COVID-19 Rule Out 05/03/2020 05/03/2020 05/04/2020 3:36 PM CDT COVID-19 Rule Out 08/04/2020 08/04/202008/0408/04/2020 5:18 PM ION EXCHANGE OPERATOR COVID-19 Rule Out 08/06/2020 08/06/2020 08/07/2020 6:42 AM ION EXCHANGE OPERATOR COVID-19 Rule Out 11/03/2020 11/03/2020 11/03/2020 4:58 PM ION EXCHANGE OPERATOR COVID-19 Rule Out 02/10/2021 02/10/2021 02/10/2021 7:35 PM CDT documented as of this encounter Care Teams Handhole Machine Operator Relationship Specialty Start Date End Date Kale Ferrari MD [address] [place] [address] PCP - General INTERNAL MEDICINE 11/19/19 Maria Fernanda Guerra, JENNY, DISH NETWORK INSTALLER-C [address] [facility] [address] [place] [address] NURSE PRACTITIONER 03/10/20 documented as of this encounter
--- OUTSIDE RECORDS SUMMARY | 2024-09-27 19:26 | XMS_ITS | Encounter Summary ---
Author Organization [facility] Address [address] [place] [address]. [place], [place] [id number] [place] [id number] Care Team Providers Care Grit Removal Operator Name Role Phone Kale Ferrari MD Primary Care Provider Maria Fernanda Guerra APRN, LACE ROLLER-C Unavailable Encounter Details Date Type Department Care Team (Late st Contact Info) Description 08/04/2020 Hospital Orders Only [facility] Anesthesia [address] [place] [address] Gavi Matthews Anesthesia Record Procedure Summary Procedure Name Responsible Anesthesiologist Anesthesia Start Time Anesthesia Stop Time XA AFLUTTER ABLATION Hill Pierson MD 08/06/20 1318 08/06/20 1512 Events Date Time Event Comment 08/06/2020 1232 1318 An Start Patient ID and consent checked and patient reassessed. 1318 An Start Data 1323 An Start Data 1509 Quick Note Patient D/C fro m anesthesia vent and connected to ambu bag transfer to CRU with all vital monitors, all vital has been stable during transfer. 1511 an stop data 1512 An Stop 1520 Post Anesthetic Care Handoff I completed my handoff to the receiving nurse during which we: 1. Identified the patient 2. Identified the responsible provider 3. Reviewed the pertinent medical history 4. Discussed the surgical course 5. Reviewed intra-op anesthesia management and issues during anesthesia 6. Set expectations for post-procedure period 7. Allowed opportunity for questions and acknowledgement of understanding. 1520 Post Anesthetic Care Handoff I completed my handoff to the receiving nurse during which we: 1. Identified the patient 2. Identified the responsible provider 3. Reviewed the pertinent medical history 4. Discussed the surgical course 5. Reviewed intra-op anesthesia management and issues during anesthesia 6. Set expectations for post-procedure period 7. Allowed opportunity for questions and acknowledgement of understanding. Meds * Agents No agents on file. * Blood No blood administrations on file. Lines, Drains, and Airways Type Details Placement Removal Supraglottic Airway Placement Date: 09/24; Placement Time: 08; Airway Device: Facemask; Removal Date: 08/06/20; Removal Time: 1447 05/06/20 0807 by Mirian Espinoza CRNA 08/06/20 1447 by Beronica Alfonso CRNA Peripheral IV Placement Date: 09/24; Placement Time: 1208; Placed Outside of This Facility?: No; Size: 18 G; Orientation: Left; Location: Antecubital; Site Prep: Chlorhexidine; Local Anesthetic: None; Insertion attempts: 1; Ultrasound-guided Placement?: No; Patient Tolerance: Tolerated well; Removal Date: 08/14/20; Removal Time: 1101 08/05/20 1208 by Leia Neely RN 08/14/20 110 by Zulay Bernard RN Peripheral IV Placement Date: 09/24; Placement Time: 1406; Placed Outside of This Facility?: No; Size: 18 G; Orientation: Right; Location: Antecubital; Site Prep: Chlorhexidine; Local Anesthetic: None; Inserted By: Misty STILES; Insertion attempts: 1; Ultrasound-guided Placement?: No; Patient Tolerance: Tolerated well; Removal Date: 08/13/20; Removal Time: 21008/05/20 1406 by Leia Neely RN 08/13/20 210 by Nereida Henry RN ETT Placement Date: 09/24; Placement Time: 1455 (created via procedure documentation); Placed Outside of This Facility?:No; Mask Ventilate: Easy; Size (mm) : 7; Endotracheal: Oral, Stylet used; Blade Type: Other (comment) (Glidescope #4); Placement Method: Video Laryngoscope (see comments); View Grade: 1; Viewable Anatomy: Epiglottis, Arytenoid, Vocal cords; Insertion Attempts: 1; Placement Verified By: Capnography, Auscultation, Chest Rise; Placed By: JODI; Removal Date: 08/06/20; Removal Time: 1447 08/05/20 1455 by Chong Prajapati CRNA 08/06/20 1447 by Beronica Alfonso CRNA Borrero Catheter 08/05/20; 1500; No; I & O - Strict I&O or Critically ill requiring I&O Q1-2hrs; 1; Hand hygiene performed, Sterile gloves, drape and lubricant used, Site cleansed with sterile antiseptic, Catheter inserted using aseptic technique, Borrero care post catheter insertion, Anchoring device applied, Drainage bag secured below level of bladder, Closed system maintained; Stat lock; Temperature probe; 16 Fr.; Per Protocol 08/05/20 1500 by Leia Neely RN 08/13/20 1557 by Nany AGUIAR/OG Tube Placement Date: 09/24; Placement Time: 1509; Inserted By: GO Jay; Tube Type: Orogastric; Tube Size: 16 Fr.; Tube Location: Left nostril; Removal Date: 08/08/20; Removal Time: 1640 08/05/20 1509 by Leia Neely RN 08/08/20 1640 by Ziggy Butterfield, GO ETT Placement Date: 09/24; Placement Time: 1511; Placed Outside of This Facility?:No; Size (mm) : 7 mm; Size (mm) : 7; Endotracheal: Oral; Cuffed: Cuffed; End Cap Reading: Positive; Placement Verified By: Capnography, Auscultation, Chest Rise, Xray; Removal Date: 08/08/20; Removal Time: 1640; Removal Person: Other (Comment), Respiratory Therapist 08/05/20 1511 by Qing Phillips, DEVELOPMENT GEOLOGIST 08/08/20 1640 by Ziggy Butterfield, RN CVC Triple Lumen Placement Date: 09/24; Placement Time: 1530; Placed Outside of This Facility?: No; Technique Used: Maximum Sterile Technique used, Chlorhexidine skin prep, Real time Ultrasound guidance, Blood return present, CXR taken, Guidewires used accounted for, Fluoroscopy, Hand hygiene; Local Anesthetic: Injectable; Inserted By: Dr. Smith; Removal Date: 08/13/20; Removal Time: 1558; Removal Reason: Therapy Completed 08/05/20 1530 by Juana Preston RN 08/13/20 1558 by Nany Soriano Arterial Line Placement Date: 09/24; Placement Time: 1535; Placed Outside of This Facility?: No; Orientation: Left; Location: Femoral; Site Prep: Chlorhexidine; Local Anesthetic: None; Inserted By: Dr. Vazquez; Insertion Attempts: 1; Ultrasound-guided Placement?: Yes; Patient Tolerance: Tolerated well; Removal Date: 08/06/20; Removal Time: 1300; Removal Reason: Therapy Completed 08/05/20 1535 by Juana Preston RN 08/06/20 1300 by Ziggy Butterfield RN Arterial Line Placement Date: 10/25; Placement Time: 1331 (created via procedure documentation); Placed Outside of This Facility?: No; Size: 20; Orientation: Left; Location: Radial; Site Prep: Chlorhexidine; Local Anesthetic: None; Insertion Attempts: 2; Removal Date: 08/13/20; Removal Time: 0400; Removal Reason: Therapy Completed 08/06/20 1331 by Augustine Nguyen, MAKEUP ARTISTRY INSTRUCTOR 08/13/20 0400 by Mayra Wyman RN documented in this encounter Social History Tobacco Use Types Packs/Day Years Used Date Smoking Tobacco: Every Day Cigars Smokeless Tobacco: Never Alcohol Use Standard Drinks/Week Comments Yes 0 (1 standard drink = 0.6 oz pur e alcohol) 12 pk weekly Sex and Gender Information Value Date Recorded Sex Assigned at Not on file Legal Sex Male 3:52 PM CDT Gender Identity Not on file Sexual Orientation Not on file COVID-19 Exposure Response Date Recorded In the last month, have you been in contact with someone who was confirmed or suspected to have Coronavirus / COVID-19? 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 documented as of this encounter Plan of Treatment Not on file documented as of this encounter Visit Diagnoses Not on filedocumented in this encounter Additional Health Concerns Infection Onset Date Last Indicated Resolved Time COVID-19 Rule Out 08/04/2020 08/04/2020 08/04/2020 5:18 PM FISHING REEL ASSEMBLER COVID-19 Rule Out 08/06/2020 08/06/202008/0708/07/2020 6:42 AM FISHING REEL ASSEMBLER COVID-19 Rule Out 11/03/2020 11/03/2020 11/03/2020 4:58 PM FISHING REEL ASSEMBLER COVID-19 Rule Out 02/10/2021 02/10/2021 02/10/2021 7:35 PM CDT documented as of this encounter Care Teams Grit Removal Operator Relationship Specialty Start Date End Date Kale Ferrari MD [address] [place] [id number] PCP - General INTERNAL MEDICINE 11/19/19 Maria Fernanda Guerra, ACADEMIC SUCCESS COORDINATOR, LACE ROLLER-C [address] [facility] [address] [place] [address] NURSE PRACTITIONER 03/10/20 documented as of this encounter
--- OUTSIDE RECORDS SUMMARY | 2024-09-27 19:26 | XMS_ITS | Encounter Summary ---
Author Organization [facility] Address [address] [place] [address]. [place], [place] [id number] [place] [address] Care Team Providers Care Table Games Shift Manager Name Role Phone Kale Ferrari MD Primary Care Provider [phone] Maria Fernanda Guerra APRN, ASSISTANT LIBRARIAN-C Unavailable Encounter Details Date Type Department Care Team (Late st Contact Info) Description 11/03/2020 Hospital Orders Only [facility] Anesthesia [address] [place] [address] Gavi Matthews Anesthesia Record Procedure Summary Procedure Name Responsible Anesthesiologist Anesthesia Start Time Anesthesia Stop Time XA A-FIB ABLATION Luis Valentin MD 11/05/20 1215 11/05/20 1700 Events Date Time Event Comment 11/05/2020 1106 1106 AN Anesthesia Prepped 1202 AN ASSISTANT DIRECTOR OF FINANCIAL AID Prepped 1215 An Start Patient ID and consent checked and patient reassessed. 1216 An Start Data 1221 Preoxygenation 1223 An Induction 1227 An Intubation 1232 Quick Note S-cath placed P SR for esophageal temp monitoring per surgeon 1241 Anesthesia Ready 1256 Quick Note Baseline ACT 14 7 1324 Quick Note Time out 1325 an laz now Procedure start 1353 Quick Note ACT 455 1420 Quick Note Glucose 52. Adm inistering 125ml D10 and will check again after. 1423 Quick Note ACT 373 1435 Quick Note Glucose 66, Rep eating 125 ml 10% Dextrose per Dr Frame 1438 Quick Note ACT 334 1501 Quick Note Glucose 123 1508 Quick Note ACT 367 1547 Quick Note ACT 367 1624 Quick Note ACT 147 Glucose 137 1632 An Extubation 1640 an stop data 1700 An Stop 1700 Post Anesthetic Care Handoff I completed my [...] Details Placement Removal Peripheral IV Placement Date: 11/23; Placement Time: 1204; Placed Outside of This Facility?: No; Size: 20 G; Orientation: Left; Location: Wrist; Site Prep: Chlorhexidine; Local Anesthetic: None; Inserted By: JODI NEUMANN; Insertion attempts: 1; Patient Tolerance: Tolerated well; Removal Date: 11/06/20; Removal Time: 1055; Removal Reason: Patient Discharged 11/05/20 1204 by Jennifer Richards CRNA 11/06/20 1055 by Dariela Saavedra RN ETT Placement Date: 11/23; Placement Time: 1227; Placed Outside of This Facility?:No; Mask Ventilate: Prior to intubation, Easy; Size (mm) : 7.5; Endotracheal: Oral, Oropharyngeal airway, Stylet used; Blade Type: (GS 4); Placement Method: Video Laryngoscope (see comments); View Grade: 1; Viewable Anatomy: Epiglottis, Arytenoid, Vocal cords; Insertion Attempts: 2 (DL x1, Tube placement attempted x2; successful placement with second Tube attempt, tube caught on posterior cord with first attempt); Placement Verified By: Capnography, Auscultation, Chest Rise; Placed By: JODI; Removal Date: 11/05/20; Removal Time: 1632 11/05/20 1227 by Jennifer Richards CRNA 11/05/20 1632 by Ifeanyi Angeles Meng, CRNA Arterial Line Placement Date: 11/23; Placement Time: 1232 (created via procedure documentation); Placed Outside of This Facility?: No; Size: 20; Orientation: Right; Location: Radial; Site Prep: Chlorhexidine; Local Anesthetic: None; Insertion Attempts: 1; Patient Tolerance: Tolerated well; Removal Date: 11/05/20; Removal Time: 2124; Removal Reason: Therapy Completed 11/05/20 1232 by Joshua Madrigal MD 11/05/20 2125 by Stephany Preciado RN Borrero Catheter 11/05/20; 1240; No; I & O - Strict I&O or Critically ill requiring I&O Q1-2hrs; 1; Borrero care post catheter insertion, Hand hygiene performed, Site cleansed with sterile antiseptic, Anchoring device applied, Sterile gloves, drape and lubricant used, Drainage bag secured below level of bladder, Catheter inserted using aseptic technique, Closed system maintained; Clipped, Stat lock; Temperature probe; 16 Fr.; Per Protocol 11/05/20 1240 by Raquel Blanco RN 11/06/20 0815 by Dariela Saavedra RN Peripheral IV Placement Date: 11/23; Placement Time: 1241; Placed Outside of This Facility?: No; Size: 18 G; Orientation: Right; Location: Antecubital; Site Prep: Chlorhexidine; Local Anesthetic: None; Inserted By: MD ADRIANA; Insertion attempts: 1; Patient Tolerance: Tolerated well; Removal Date: 11/05/20; Removal Time: 1300; Removal Reason: Patient Discharged 11/05/20 1241 by Jennifer Richards CRNA 11/05/20 1300 by Clementine Ortiz RN Surgical/Incision 11/05/20; 1710; Clos ed Incision; Groin; Right, Left; 11/06/20; 1435 11/05/20 1710 by Dariela Saavedra RN 11/06/20 1435 by Automatic Discharge Provider documented in this encounter Social History Tobacco Use Types Packs/Day Years Used Date Smoking Tobacco: Every Day Cigars Smokeless Tobacco: Never Alcohol Use Standard Drinks/Week Comments Yes 1.7 (1 standard drink = 0.6 oz p ure alcohol) 12 pk weekly Sex and Gender Information Value Date Recorded Sex Assigned at Not on file Legal Sex Male 3:52 PM CDT Gender Identity Not on file Sexual Orientation Not on file COVID-19 Exposure Response Date Recorded In the last month, have you been in contact with someone who was confirmed or suspected to have Coronavirus / COVID-19? No / Unsure 11/05/2020 9:54 AM REGIONAL DRIVER documented as of this encounter Functional Status * Question Answer Date of Assessment Author Status Do you have serious difficulty walking or climbing stairs? No 11/06/2020 10:47 AM REGIONAL DRIVER Elaine Saavedra RN Active Do you have difficulty dressing or bathing? No 11/06/2020 10:47 AM Rohith Miranda RN Active Because of a physical, mental, or emotional condition, do you have difficulty doing errands alone such as visiting a doctor's office or shopping? No 11/06/2020 10:47 AM Elaine Miranda RN Active * RETIRED Are you deaf or do you have serious difficulty hearing Answer Date of Assessment Author Status No 08/12/2020 2:20 AM REGIONAL DRIVER Activ e * RETIRED Are you blind or do you have serious difficulty seeing, even when wearing glasses? Answer Date of Assessment Author Status No 08/12/2020 2:20 AM REGIONAL DRIVER Activ e * Do you have serious difficulty walking or climbing stairs? Answer Date of Assessment Author Status No 08/12/2020 2:20 AM Mayra Bell RN Active * Do you have difficulty dressing or bathing? Answer Date of Assessment Author Status No 08/12/2020 2:20 AM Mayra Bell RN Active * Because of a physical, mental, or emotional condition, do you have difficulty doing errands alone such as visiting a doctor's office or shopping? Answer Date of Assessment Author Status No 08/12/2020 2:20 AM Mayra Bell RN Active documented as of this encounter Mental Status * Question Answer Entry Date Author Status Because of a physical, mental, or emotional condition, do you have serious difficulty concentrating, remembering, or making decisions? No 11/06/2020 10:47 AM Dariela Miranda RN Active * Because of a physical, mental, or emotional condition, do you have serious difficulty concentrating, remembering, or making decisions? Answer Entry Date Author Status No 08/12/2020 2:20 AM Mayra Bell RN Active documented in this encounter Plan of Treatment Not on file documented as of this encounter Visit Diagnoses Not on filedocumented in this encounter Additional Health Concerns Infection Onset Date Last Indicated Resolved Time COVID-19 Rule Out 11/03/2020 11/03/2020 11/03/2020 4:58 PM REGIONAL DRIVER COVID-19 Rule Out 02/10/2021 02/10/2021 02/10/2021 7:35 PM CDT documented as of this encounter Care Teams Table Games Shift Manager Relationship Specialty Start Date End Date Kale Ferrari MD [address] [place] [phone] PCP - General INTERNAL MEDICINE 11/19/19 Maria Fernanda Guerra, JENNY, ASSISTANT LIBRARIAN-C [address] [facility] [address] [place] [phone] NURSE PRACTITIONER 03/10/20 documented as of this encounter
--- OUTSIDE RECORDS SUMMARY | 2024-09-27 19:26 | XMS_ITS | Clinical Summary ---
Author Organization [facility] Address [address] [place] [address]. [place], [place] [address] [place] [address] Care Team Providers Care Instrumentation Fitter Name Role Phone Kale Ferrari MD Primary Care Provider [phone] Maria Fernanda Guerra APRN, JEEP MECHANIC-C Unavailable Allergies Active Allergy Reactions Criticality Noted Date Comments Quetiapine Other (see comment) High 03/11/2020 Suicidal ideation Statins Other (see comment) 03/10/2020 Rhabdo Medications insulin glargine 100 UNIT/ML injection (PEN)Indicatio ns:Diabetes Mellitus Inject 35 Units into the skin nightly at bedtime. Indications: Diabetes 0 Active insulin lispro, 1 Unit Dial, 100 UNIT/ML injection (PEN)Indicatio ns:Diabetes Mellitus Inject 1 Units into the skin 3 (three) times daily. Indications: Diabetes Per sliding scale 0 Active aspirin 81 MG chewable tabletIndicati ons:Anticoagul ant Therapy Chew 81 mg by mouth daily. Indications: Anticoagulant Therapy 0 Active vitamin D3, cholecalcifero l, 1000 UNIT Tab tabletIndicati ons:Supplement Take 1 tablet by mouth daily. Indications: Supplement 0 Active acetaminophen 325 MG tabletIndicati ons:Pain Take 650 mg by mouth every 6 (six) hours as needed for Pain. Indications: Pain 0 Active busPIRone 10 MG tabletIndicati ons:Anxiety Take 10 mg by mouth 2 (two) times daily. Indications: Feeling Anxious TAKE 1 TABLET IN THE MORNING AND 2 TABLETS AT BEDTIME 0 Active B Complex Vitamins (VITAMIN B COMPLEX OR)Indications :Supplement Take 1 tablet by mouth daily. Indications: Supplement 0 Active FLUoxetine 20 MG capsuleIndicat ions:Depressio n Take 3 capsules (60 mg total) by mouth daily. Indications: Depression 30 capsule 0 Active ONETOUCH ULTRA test strip 1 strip by Other route as needed. 1 Active fish oil 1000 MG Cap capsule Take 1,400 mg by mouth daily. Active vitamin C 250 MG tablet Take 250 mg by mouth daily. Active carvedilol 6.25 MG tablet Take 1 tablet (6.25 mg total) by mouth 2 (two) times daily. 180 tablet 1 1 Active lisinopril 20 MG tablet Take 1 tablet (20 mg total) by mouth daily. 90 tablet 1 1 Active alirocumab (PRALUENT) 75 mg/mL injection (PEN) Inject 1 mL (75 mg total) into the skin every 14 (fourteen) days. 1.96 mL 11 1 Active prednisoLONE acetate 1 % ophthalmic suspension 1 Active sildenafil 20 MG tablet 1 Active Active Problems Problem Noted Date Diagnosed Date Status post ablation of atrial fibrillation 12/2020 Systolic heart failure ([facility]) 021 Paroxysmal atrial fibrillati on with rapid ventricular response ([facility]) 09/11/2020 Typical atrial flutter ([facility]) 021 Encounter for monitoring amiodarone therapy 03/2021 Atrial fibrillation ([facility]) 08/09/2020 Delirium 08/09/2020 Ectopic atrial tachycardia ([facility]) 10/2019 Respiratory failure ([facility]) 08/06/2020 Acute respiratory failure with hypoxia ([facility]) 08/05/2020 Lewy body dementia ([facility]) 04/12/2020 Dilated cardiomyopathy secon roly to tachycardia ([facility]) 04/12/2020 Atypical atrial flutter ([facility]) 2019 On continuous oral anticoagulation 04/12/2020 Hyperlipidemia 03/10/2020 Atrial flutter ([facility]) 03/10/2020 Current smoker 03/10/2020 Hypertension Diabetes mellitus ([facility]) Sleep apnea Coronary artery disease Paroxysmal atrial flutter ([facility]) Family History Medical History Relation Comments No Known Problems Brother Stroke Father No Known Problems Maternal Aunt No Known Problems Maternal Grandfather No Known Problems Maternal Grandmother No Known Problems Maternal Uncle Dementia Mother No Known Problems Paternal Aunt No Known Problems Paternal Grandfather No Known Problems Paternal Grandmother No Known Problems Paternal Uncle No Known Problems Sister Relation Status Comments Brother Father Maternal Aunt Maternal Grandfather Maternal Grandmother Maternal Uncle Mother Paternal Aunt Paternal Grandfather Paternal Grandmother Paternal Uncle Sister Social History Tobacco Use Types Packs/Day Years Used Date Smoking Tobacco: Some Days Cigars Smokeless Tobacco: Never Comments:1 cigar per week Alcohol Use Standard Drinks/Week Comments Yes 1.7 (1 standard drink = 0.6 oz p ure alcohol) 12 pk weekly Sex and Gender Information Value Date Recorded Sex Assigned at Not on file Legal Sex Male 3:52 PM CDT Gender Identity Not on file Sexual Orientation Not on file Last Filed Vital Signs Vital Sign Reading Time Taken Comments Blood Pressure 146/62 09/03/2021 7:30 AM LANGUAGE PATH Pulse 82 09/03/2021 1:44 AM LANGUAGE PATH Temperature 36.5 ??C (97.7 ??F) 09/03/2021 1:44 AM CS T Respiratory Rate 18 09/03/2021 1:44 AM LANGUAGE PATH Oxygen Saturation 98% 09/03/2021 7:30 AM LANGUAGE PATH Inhaled Oxygen Concentration - - Weight 81.6 kg (180 lb) 02/05/2021 1:55 PM CDT Height 171.5 cm (5' 7.5 ) 02/05/2021 1:55 PM CDT Body Mass Index 27.78 02/05/2021 1:55 PM CDT Plan of Treatment Health Maintenance Due Date Last Done Comments Kidney Health Evaluation 1955 Pneumococcal Vaccine: 65+ Years (1 of 2 - PCV) 02/23/1962 Diabetes: Retinopathy Eye Exam 02/23/1974 Hepatitis C 02/23/1974 DTaP, Tdap and Td Vaccines ( 1 - Tdap) 02/23/1975 Zoster Vaccines (1 of 2) 02/23/2006 RSV Immunization or 60+ Years (1 - Risk 60-74 years 1-dose series) 2016 Hemoglobin A1C 05/18/2020 11/16/2019 Annual Medicare Wellness Visit 02/23/2021 ASCVD LDL 05/03/2021 05/03/2020, 02/19/2020 Lipid Panel 05/03/2021 05/03/2020, 02/19/2020 COVID-19 Vaccine (1 - 2023-2 5 season) 2024 Influenza Adult (#1) 2024 Colorectal Cancer Screening Colonoscopy (10 Years) 02/13/2031 02/13/2021, 02/13/2021 Meningococcal Vaccine Aged Out No lucia saurabh eligible based on patient's age to complete this topic RSV Immunizations Under 20 Months Aged Out No longer eligible b ased on patient's age to complete this topic Medical Devices Implanted Type Area Casino Dealer Device Identifier Shelf Expiration Date Model / Serial / Lot Stent Stent Coronary Procedures Procedure Name Priority Date/Time Associated Diagnosis Comments COLONOSCOPY 02/13/2021 8:24 AM CDT LIPID PANEL Routine 05/03/2020 8:32 AM CDT Hyperlipidemia, unspecified hyperlipidemia type OUTSIDE LAB (SCAN ORDER) Routine 11/16/2019 from Last 3 Months or Most Recently Relevant to Health Maintenance Results * COLONOSCOPY (02/13/2021 8:24 AM CDT) Mauro Adler MD GI PROCEDURE ORDERABLES Final Result * LIPID PANEL (05/03/2020 8:32 AM CDT) CHOLESTEROL 134 <200 MG/DL 05/03/2020 9:10 AM CDT [facility] Comment: THE NATIONAL LIPID ASSOCIATION AND THE NATIONAL CHOLESTEROL EDUCATION PROGRAM (NCEP) HAVE SET THE FOLLOWING GUIDELINES FOR TOTAL CHOLESTEROL IN ADULTS AGES 18 AND UP. DESIRABLE: <200 BORDERLINE HIGH: 200-239 HIGH: > OR = 240 TRIGLYCERIDES 32 <150 MG/DL 05/03/2020 9:10 AM CDT [facility] Comment: THE NATIONAL LIPID ASSOCIATION AND THE NATIONAL CHOLESTEROL EDUCATION PROGAM (NCEP) HAVE SET THE FOLLOWING GUIDELINES FOR TRIGLYCERIDES IN ADULTS AGES 18 AND UP. NORMAL: <150 BORDERLINE HIGH: 150 TO 199 HIGH: 200 TO 499 VERY HIGH: >499 HDL 51 >39 MG/DL 05/03/2020 9:10 AM CDT [facility] Comment: THE NATIONAL LIPID ASSOCIATION AND THE NATIONAL CHOLESTEROL EDUCATION PROGAM (NCEP) HAVE SET THE FOLLOWING GUIDELINES FOR HDL CHOLESTEROL IN ADULTS AGES 18 AND UP. MALES: >39 FEMALES: >49 LDL (CALCULATED) 77 <100 MG/DL 05/03/20 9:10 AM CDT [facility] Comment: THE NATIONAL LIPID ASSOCIATION AND THE NATIONAL CHOLESTEROL EDUCATION PROGAM (NCEP) HAVE SET THE FOLLOWING GUIDELINES FOR LDL CHOLESTEROL IN ADULTS AGES 18 AND UP. DESIRABLE: <100 ABOVE DESIRABLE: 100 TO 129 BORDERLINE HIGH: 130 TO 159 HIGH: 160 TO 189 VERY HIGH: >189 VLDL CALCULATION 6 MG/DL 05/03/20 9:10 AM CDT [facility] Comment:REFERENCE RANGE NOT ESTABLISHED CHOL/HDL RATIO 2.6 05/03/2020 9:10 AM CDT [facility] Comment:REFERENCE RANGE NOT ESTABLISHED LDL/HDL 1.5 05/03/2020 9:10 AM CDT [facility] Comment:REFERENCE RANGE NOT ESTABLISHED NON HDL CHOLESTEROL 83 MG/DL 05/03/2020 9:10 AM CDT [facility] Comment:REFERENCE RANGE NOT ESTABLISHED 05/03/2020 8:32 AM CDT us CHELSEY Peters APRNC LABORATORY Final Result [facility] [address] [place] [address], * OUTSIDE LAB (11/16/2019) HGB A1C 8.1 HS ONBASE 11/16/2019 us Documents Scanned SCANNING Edited Result - Final [facility] ONBASE from Last 3 Months or Most Recently Relevant to Health Maintenance Insurance AETNA AETNA Advance Directives Documents on File Type Date Recorded 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 Expl anation Power of Lean [employer] Senior Specialist 05/07/2020 8:54 AM * Full Code (Latest Code Status on File) Date Activated Date Inactivated Comments 11/05/2020 6:19 PM 11/06/2020 2:35 PM * Full Code Date Activated Date Inactivated Comments 08/17/2020 1:00 PM 11/05/2020 9:57 AM * Full Code Date Activated Date Inactivated Comments 08/07/2020 2:48 PM 08/15/2020 3:08 PM * Full Code Date Activated Date Inactivated Comments 08/05/2020 2:29 PM 08/07/2020 2:48 PM * Full Code Date Activated Date Inactivated Comments 05/06/2020 11:22 AM 05/06/2020 5:33 PM Care Teams Instrumentation Fitter Relationship Specialty Start Date End Date Kale Ferrari MD [address] [place] [phone] PCP - General INTERNAL MEDICINE 11/19/19 Maria Fernanda Guerra, JENNY, JEEP MECHANIC-C [address] [facility] [address] [place] [address] NURSE PRACTITIONER 03/10/20
== END 2024-09-25 14:59 | disposition home or self-care (01) ==
LOC: CHSLAB 15:00
PROVIDERS: PCP Internal Medicine; Visit Provider Specialist
DX: C44.329 Squamous cell carcinoma of skin of other parts of face (principal)
CPT/HCPCS: 88305

== ENCOUNTER 2024-12-17 09:15 | Outpatient (CLI) | payer MEDICARE, SELFPAY ==
--- OUTSIDE RECORDS SUMMARY | 2024-12-17 10:03 | XMS_ITS | Encounter Summary ---
Author Organization [facility] Address [facility] [place] [address] Care Team Providers Care Director Process Name Role Phone Kale Ferrari MD Primary Care Provider [phone] Maria Fernanda Guerra APRN, NP-C Unavailable Encounter Details Date Type Department Care Team (Late st Contact Info) Description 08/04/2020 Hospital Orders Only [facility] Anesthesia [address] [place] [address] Gavi Matthews Anesthesia Record Procedure Summary Procedure [...] Supraglottic Airway Placement Date: 09/24; Placement Time: 0807; Airway Device: Facemask; Removal Date: 08/06/20; Removal [...] 08/05/20 1208 by Leia Neely RN 08/14/20 1101 by Zulay Bernard RN Peripheral IV Placement Date: 09/24; Placement Time: 1406; Placed Outside of This Facility?: No; Size: 18 G; Orientation: Right; Location: Antecubital; Site Prep: Chlorhexidine; Local Anesthetic: None; Inserted By: Misty STILES; Insertion attempts: 1; Ultrasound-guided Placement?: No; Patient Tolerance: Tolerated well; Removal Date: 08/13/20; Removal Time: 2108 08/05/20 1406 by Leia Neely RN 08/13/20 2108 by Nereida Henry RN ETT Placement Date: [...] Time: 1447 08/05/20 1455 by Chong Prajapati RESTAURANT HOSTESS 08/06/20 1447 by Beronica Alfonso CRNA [place] [...] Respiratory Therapist 08/05/20 1511 by Qing Phillips, TELEVISION NEWSCAST DIRECTOR 08/08/20 1640 by Ziggy Butterfield, RN CVC [...] Reason: Therapy Completed 08/06/20 1331 by Augustine Nguyen CRNA 08/13/20 0400 by Mayra Wyman RN documented [...] COVID-19? No / Unsure 08/05/2020 11:56 AM REED MAN documented as of this encounter Plan of Treatment Not on file documented as of this encounter Visit Diagnoses Not on filedocumented in this encounter Additional Health Concerns Infection Onset Date Last Indicated Resolved Time COVID-19 Rule Out 08/04/2020 08/04/2020 08/04/2020 5:18 PM REED MAN COVID-19 Rule Out 08/06/2020 08/06/2020 08/07/2020 6:42 AM REED MAN COVID-19 Rule Out 11/03/2020 11/03/202011/03/2020 4:58 PM REED MAN COVID-19 Rule Out 02/10/2021 02/10/2021 02/10/2021 7:35 PM CDT documented as of this encounter Care Teams Director Process Relationship Specialty Start Date End Date Kale Ferrari MD [address] [place] [phone] PCP - General INTERNAL MEDICINE 11/19/19 Maria Fernanda Guerra APRN, PERSONAL TRAINER-C [address] [facility] [address] [address] NURSE PRACTITIONER 03/10/20 documented as of this encounter
--- OUTSIDE RECORDS SUMMARY | 2024-12-17 10:03 | XMS_ITS | Encounter Summary ---
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 Social History Tobacco Use Types Packs/Day Years Used Date Smoking Tobacco: Never Assessed Sex and Gender Information Value Date Recorded Sex Assigned at Not on file Legal Sex Male 8:41 AM OFFICE LEAD Gender Identity Not on file Sexual Orientation Not on file documented as of this encounter Plan of Treatment Not on file documented as of this encounter Procedures Procedure Name Priority Date/Time Associated Diagnosis Comments DERMATOPATHOLOGY Routine 11/20/2024 12:0 0 AM CDT 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 SKIN, left ear: DERMAL SCAR RESIDUAL SQUAMOUS CELL CARCINOMA NOT IDENTIFIED (L90.5) 12:49 PM CDT DERMATOPATHOLOGY LABORATORY Clinical History SCC 12:49 PM CDT DERMATOPATHOLOGY LABORATORY Gross Description Specimen A: Received is one formalin filled container labeled with the patients name and designated left ear. The specimen consists of a shave removal measuring 53n20n7 mm. Jar 0. 12:49 PM CDT DERMATOPATHOLOGY LABORATORY Microscopic Description Specimen A. SKIN, left ear: There are fibroblasts and collagen bundles oriented parallel to the skin surface. There are elongated blood vessels, some of which are oriented perpendicular to the skin surface. No residual squamous cell carcinoma is identified. 12:49 PM CDT DERMATOPATHOLOGY LABORATORY Disclaimer An external and internal positive and negative controls are appropriate for the histochemical, immunohistochemical and immunofluorescence stain(s) in this case (if any), except where stated explicitly. The performance characteristics of the stain(s) cited in this report were developed and its performance characteristic determined by the Dermatopathology Laboratory at [facility], directed by Dr. Devang Mckinney. These tests need not be, and therefore are not, approved by the [place] Food and Drug Administration. The tests are used for clinical purposes. 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
--- OUTSIDE RECORDS SUMMARY | 2024-12-17 10:03 | XMS_ITS | Encounter Summary ---
Author Organization [facility] Address [facility] [place] [address] Care Team Providers Care Lap Cutter Name Role Phone Kale Ferrari MD Primary Care Provider [phone] Maria Fernanda Guerra APRN BILINGUAL RECRUITER-C Unavailable Encounter Details Date Type Department Care Team (Late st Contact Info) Description 03/11/2020 Abstract [facility] [address] [place] [address] Abstract, Doc [facility] Social History Tobacco Use [...] LABORATORY Final Result * LIPID PANEL (02/19/2020) Pathologist [facility] CHOLESTEROL 152 HDL 56 TRIGLYCERIDES 42 LDL (CALCULATED) 98 02/19/2020 us Kale Ferrari MD LABORATORY Final Result * CMP (ABSTRACTED LAB) (02/19/2020) Pathologist [facility] SODIUM S/P/B 140 POTASSIUM S/P/B 4.8 CHLORIDE [...] 3:36 PM CDT COVID-19 Rule Out 08/04/2020 08/04/2020 08/04/2020 5:18 PM MUSIC MINISTRIES DIRECTOR COVID-19 Rule Out 08/06/2020 08/06/2020 08/07/2020 6:42 AM MUSIC MINISTRIES DIRECTOR COVID-19 Rule Out 11/03/2020 11/03/2020 11/03/2020 4:58 PM MUSIC MINISTRIES DIRECTOR COVID-19 Rule Out 02/10/2021 02/10/2021 02/10/2021 7:35 PM CDT documented as of this encounter Care Teams Lap Cutter Relationship Specialty Start Date End Date Kale Ferrari MD [address] [place] [phone] PCP - General INTERNAL MEDICINE 11/19/19 Maria Fernanda Guerra APRN, BILINGUAL RECRUITER-C [address] [facility] [address] [place] [address] NURSE PRACTITIONER 03/10/20 documented as of this encounter
--- OUTSIDE RECORDS SUMMARY | 2024-12-17 10:03 | XMS_ITS | Encounter Summary ---
Author Organization [facility] Address [address] [place] [address] Care Team Providers Care Wellness Guide Name Role Phone Kale Ferrari MD Primary Care Provider [phone] Maria Fernanda Guerra APRN, NP-C Unavailable Encounter Details Date Type Department Care Team (Late st Contact Info) Description 11/03/2020 Hospital Orders Only [facility] Anesthesia [address] [place] [address] Gavi Matthews Anesthesia Record Procedure Summary Procedure Name Responsible Anesthesiologist Anesthesia Start Time Anesthesia Stop Time XA A-FIB ABLATION Luis Valentin MD 11/05/20 1215 11/05/20 1700 Events Date Time Event Comment 11/05/2020 1106 1106 AN Anesthesia Prepped 1202 AN TWINE WINDER Prepped 1215 An Start Patient ID and [...] By: JODI; Removal Date: 11/05/20; Removal Time: 16311/05/20 1227 by Jennifer Richards CRNA 11/05/20 1632 by Ifeanyi Angeles Meng, CRNA Arterial Line Placement Date: 11/23; Placement Time: 123 (created via procedure documentation); Placed Outside of This Facility?: No; Size: 20; Orientation: Right; Location: Radial; Site Prep: Chlorhexidine; Local Anesthetic: None; Insertion Attempts: 1; Patient Tolerance: Tolerated well; Removal Date: 11/05/20; Removal Time: 2125; Removal Reason: Therapy Completed 11/05/20 1232 by [...] Reason: Patient Discharged 11/05/20 1241 by Jennifer Richards, TWINE WINDER 11/05/20 1300 by Clementine Ortiz RN Surgical/Incision [...] COVID-19? No / Unsure 11/05/2020 9:54 AM SALES ENGINEER ACCOUNT MANAGER documented as of this encounter Functional Status * Question Answer Date of Assessment Author Status Do you have serious difficulty walking or climbing stairs? No 11/06/2020 10:47 AM Elaine Miranda RN Active Do you have difficulty dressing [...] Assessment Author Status No 08/12/2020 2:20 AM SALES ENGINEER ACCOUNT MANAGER Activ e * RETIRED Are you blind or do you have serious difficulty seeing, even when wearing glasses? Answer Date of Assessment Author Status No 08/12/2020 2:20 AM SALES ENGINEER ACCOUNT MANAGER Activ e * Do you have serious [...] Rule Out 11/03/2020 11/03/2020 11/03/2020 4:58 PM SALES ENGINEER ACCOUNT MANAGER COVID-19 Rule Out 02/10/2021 02/10/2021 02/10/2021 7:35 PM CDT documented as of this encounter Care Teams Wellness Guide Relationship Specialty Start Date End Date Kale Ferrari MD [address] [place] [address] PCP - General INTERNAL MEDICINE 11/19/19 Maria Fernanda Guerra APRN, IT RISK ADVISOR-C [address] [facility] [address] [place] [address] [address] NURSE PRACTITIONER 03/10/20 documented as of this encounter
--- OUTSIDE RECORDS SUMMARY | 2024-12-17 10:03 | XMS_ITS | Clinical Summary ---
Author Organization [facility] Address [address] [place] [address] Care Team Providers Care Distributed Generation Project Manager Name Role Phone Unavailable Primary Care Provider Unavailabl e Source Comments [facility],non-owned Affiliates and Associated Physician Practices is amultiple site organization consisting of ambulatory clinics and hospital sitesin [place], [place], [place] and [place]. This disclosure is being madepursuant to the Care Everywhere program and may not contain all information available regarding this patient. 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 from Last 3 Months Social History Tobacco Use Types Packs/Day Years Used Date Smoking Tobacco: Never Assessed Sex and Gender Information Value Date Recorded Sex Assigned at Not on file Legal Sex Male 8:41 AM SUPPLIES PACKER Gender Identity Not on file Sexual Orientation Not on file Plan of Treatment Health Maintenance Due Date Last Done Comments COLOGUARD (AGES 45-75) - COL ON CA SCREENING 1955 COLON MONITORING 1955 COLONOSCOPY - COLON CA SCREENING 1956 CT COLONOGRAPHY - COLON CA SCREENING 1955 Colorectal Cancer Screening 1955 FIT - COLON CA SCREENING 1956 FLEX SIG - COLON CA SCREENING 1956 LIPID TESTING 1955 HEPATITIS C SCREENING 02/19/1974 DTAP/TDAP/TD VACCINES (1 - Tdap) 02/23/1975 PNEUMOCOCCAL VACCINE 50+ (1 of 1 - PCV) 02/23/2006 ZOSTER VACCINE (1 of 2) 02/23/2006 COVID-19 VACCINE (1 - 2023-2 5 season) 2024 DEPRESSION SCREENING 09/05/2024 MEDICARE AWV CALENDAR YEAR 2024 INFLUENZA VACCINE (Season Ended) 2025 Respiratory Syncytial Virus (RSV) Vaccine Pt: or over 60 yrs (1 - 1-dose 75+ series) 02/23/2031 HEPATITIS B VACCINE Aged Out No longe r eligible based on patient's age to complete this topic HIB VACCINE Aged Out No longer eligi ble based on patient's age to complete this topic HPV VACCINE Aged Out No longer eligi ble based on patient's age to complete this topic MENINGOCOCCAL (Group B) VACC INE SHARED DECISION-MAKING Aged Out No longer eligibl e based on patient's age to complete this topic MENINGOCOCCAL GROUPS A/C/Y/W VACCINE Aged Out No longer eligible b ased on patient's age to complete this topic Procedures Procedure Name Priority Date/Time Associated Diagnosis Comments DERMATOPATHOLOGY Routine 11/29/2024 12:0 0 AM CDT Other follicular cysts of the skin and subcutaneous tissue Other localized visual field defect, unspecified eye DERMATOPATHOLOGY Routine 11/20/2024 12:0 0 AM CDT 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 Case Report Dermatopathology Report Case: [id number] Authorizing Provider: Shayan Caldwell MD Collected: 11/29/2024 12:00 AM Ordering Location: [facility] - Received: 12/03/2024 01:52 PM DermPath Lab Pathologist: Ana Cristina Castro MD Specimen: Skin, nasal root 11:36 AM CDT DERMATOPATHOLOGY LABORATORY Final Diagnosis Specimen A. SKIN, nasal root: ACTINIC KERATOSIS (L57.0) EPIDERMOID CYST (L72.0) (see microscopic description) 11:36 AM CDT DERMATOPATHOLOGY LABORATORY Clinical History Cyst Check margins 11:36 AM CDT DERMATOPATHOLOGY LABORATORY Gross Description Specimen A: Received is one formalin filled container labeled with the patient's name and designated nasal root. The specimen consists of a 15x8x9 mm piece of skin. The margin is inked green. The specimen is bisected lengthwise and submitted in 1 cassette. Jar 0. 11:36 AM CDT DERMATOPATHOLOGY LABORATORY Microscopic Description Specimen A. SKIN, nasal root: There is focal parakeratosis. The lower half of the epidermis shows disorderly maturation of keratinocytes with nuclear pleomorphism. In addition, within the dermis, there is a space lined by epithelium that resembles normal epidermis and the infundibular portion of the hair follicle. 11:36 AM CDT DERMATOPATHOLOGY LABORATORY Disclaimer An external and internal positive and negative controls are appropriate for the histochemical, immunohistochemical and immunofluorescence stain(s) in this case (if any), except where stated explicitly. The performance characteristics of the stain(s) cited in this report were developed and its performance characteristic determined by the Dermatopathology Laboratory at [facility], directed by Dr. Devang Mckinney. These tests need not be, and therefore are not, approved by the [place] Food and Drug Administration. The tests are used for clinical purposes. Billing Codes Specimen Charges Stain Charges 55707 1 11:36 AM CDT DERMATOPATHOLOGY LABORATORY Embedded Images 11:36 AM CDT DERMATOPATHOLOGY LABORATORY Pathology/Cytolog y TISSUE SPECIMEN FROM SKIN / Unknown 11/29/2024 12/03/2024 1:52 PM CDT us Shayan Caldwell MD LAB - PATHOLOGY/CYTOLOGY ORDE DEMOND Final Result DERMATOPATHOLOGY LABORATORY [facility] - Department of Dermatology [address], [address] [phone] from Last 3 Months Insurance AETNA AETNA MEDICARE ADV
--- OUTSIDE RECORDS SUMMARY | 2024-12-17 10:03 | XMS_ITS | Encounter Summary ---
Author Organization [facility] Address [address] [place] [address] Care Team Providers Care Sack Lifter Name Role Phone Unavailable Primary Care Provider Unavailabl e Encounter Details Date Type Department Care Team (Late st Contact Info) Description 12/01/2024 Lab Requisition [facility] - DermPath Lab [address] [place] [phone] Shayan Caldwell MD [facility] DERMATOLOGY [address] [place] [phone] Other follicular cysts of the skin and subcutaneous tissue; Other localized visual field defect, unspecified eye Social History Tobacco Use Types Packs/Day Years Used Date Smoking Tobacco: Never Assessed Sex and Gender Information Value Date Recorded Sex Assigned at Not on file Legal 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 Gender Identity Not on file Sexual Orientation Not on file documented as of this encounter Plan of Treatment Not on file documented as of this encounter Procedures Procedure Name Priority Date/Time Associated Diagnosis Comments DERMATOPATHOLOGY Routine 11/29/2024 12:0 0 AM CDT Other follicular cysts of the skin and subcutaneous tissue Other localized visual field defect, unspecified eye documented in this encounter Results * DERMATOPATHOLOGY (11/29/2024 12:00 AM CDT) Case Report Dermatopathology Report Case: [id number] Authorizing Provider: Shayan Caldwell MD Collected: 11/29/2024 12:00 AM Ordering Location: [facility] Physician [facility] - Received: 12/03/2024 01:52 PM DermPath Lab [...] characteristic determined by the Dermatopathology Laboratory at [facility], directed by Dr. Devang Mckinney. These tests need not be, and therefore are not, approved by the [place] Food and Drug Administration. The tests are used for clinical purposes. Billing Codes Specimen Charges Stain Charges [id number] 1 11:36 AM CDT DERMATOPATHOLOGY LABORATORY Embedded Images 11:36 AM CDT DERMATOPATHOLOGY LABORATORY Pathology/Cytolog y TISSUE SPECIMEN FROM SKIN / Unknown 11/29/2024 12/03/2024 1:52 PM CDT Shayan Caldwell MD LAB - PATHOLOGY/CYTOLOGY ORDE DEMOND Final Result DERMATOPATHOLOGY LABORATORY [facility] - Department of Dermatology [address] [phone] documented in this encounter Visit Diagnoses Diagnosis Other follicular cysts of the skin and subcutaneous tissue Other localized visual field defect, unspecified eye documented in this encounter
--- OUTSIDE RECORDS SUMMARY | 2024-12-17 10:03 | XMS_ITS | Encounter Summary ---
Author Organization [facility] Address [address] [place] [address] Care Team Providers Care Coat Agent Name Role Phone Kale Ferrari MD Primary Care Provider [phone] Maria Fernanda Guerra APRN, NP-C Unavailable Encounter Details Date Type Department Care Team (Late st Contact Info) Description 05/05/2020 Hospital Orders Only [facility] Anesthesia [address] [place] [address] Gavi Matthews Anesthesia Record Procedure Summary Procedure [...] Peripheral IV Placement Date: 05/06/20; Placement Time: 06; Placed Outside of This Facility?: No; Size: 20 G; Orientation: Left; Location: Antecubital; Removal Date: 08/05/20; Removal Time: 1603; Removal Reason: D/C'd Prior to This Admission 05/06/20 0630 by Courtney Vincent RN 08/05/20 1603 by Juana Preston RN Supraglottic Airway Placement Date: 05/06/20; Placement Time: 08; Airway Device: Facemask; Removal Date: 08/06/20; Removal Time: 1447 05/06/20 08 by Mirian Espinoza CRNA 08/06/20 144 by Beronica Alfonso CRNA documented in this [...] Rule Out 08/04/2020 08/04/2020 08/04/2020 5:18 PM MANAGER TRADING COVID-19 Rule Out 08/06/2020 08/06/2020 08/07/2020 6:42 AM MANAGER TRADING COVID-19 Rule Out 11/03/2020 11/03/2020 11/03/2020 4:58 PM MANAGER TRADING COVID-19 Rule Out 02/10/2021 02/10/2021 02/10/2021 7:35 PM CDT documented as of this encounter Care Teams Coat Agent Relationship Specialty Start Date End Date Kale Ferrari MD [address] [place] [address] PCP - General INTERNAL MEDICINE 11/19/19 Maria Fernanda Guerra APRN, INSPECTOR RAW QUARTZ-C [address] [phone] NURSE PRACTITIONER 03/10/20 documented as of this encounter
--- OUTSIDE RECORDS SUMMARY | 2024-12-17 10:03 | XMS_ITS | Clinical Summary ---
Author Organization [facility] Address Psychiatric [facility] [place] [address] Care Team Providers Care Building Maintenance Repairer Name Role Phone Kale Ferrari MD Primary Care Provider [phone] Maria Fernanda Guerra APRN, NP-C Unavailable Allergies Active Allergy Reactions Criticality Noted [...] of atrial fibrillation 12/2020 Systolic heart failure ([facility]) 021 Paroxysmal atrial fibrillati on with rapid ventricular response ([facility]) 09/11/2020 Typical atrial flutter ([facility]) 021 Encounter for monitoring amiodarone therapy 03/2021 Atrial fibrillation ([facility]) 08/09/2020 Delirium 08/09/2020 Ectopic atrial tachycardia ([facility]) 08/06/2020 Respiratory failure ([facility]) 08/06/2020 Acute respiratory failure with hypoxia ([facility]) 08/05/2020 Lewy body dementia 04/12/2020 Dilated cardiomyopathy secon roly to tachycardia ([facility]) 04/12/2020 Atypical atrial flutter ([facility]) 2019 On continuous oral anticoagulation 04/12/2020 Hyperlipidemia 03/10/2020 Atrial flutter ([facility]) 03/10/2020 Current smoker 03/10/2020 Hypertension Diabetes mellitus ([facility]) Sleep apnea Coronary artery disease Paroxysmal atrial flutter ([facility]) Family History Medical History Relation Comments No [...] Comments Blood Pressure 146/62 09/03/2021 7:30 AM MARKET DIRECTOR Pulse 82 09/03/2021 1:44 AM MARKET DIRECTOR Temperature 36.5 C (97.7 F) 09/03/2021 1:44 AM MARKET DIRECTOR Respiratory Rate 18 09/03/2021 1:44 AM MARKET DIRECTOR Oxygen Saturation 98% 09/03/2021 7:30 AM MARKET DIRECTOR Inhaled Oxygen Concentration - - Weight 81.6 kg (180 lb) 02/05/2021 1:55 PM CDT Height 171.5 cm (5' 7.5 ) 02/05/2021 1:55 PM CDT Body Mass Index 27.78 02/05/2021 1:55 PM CDT Plan of Treatment Health Maintenance Due Date Last Done Comments Kidney Health Evaluation 1955 Pneumococcal Vaccine: 50+ Years (1 of 2 - PCV) 02/23/1962 [...] Lipid Panel 05/03/2021 05/03/2020, 02/19/2020 COVID-19 Vaccine (2023-2 5 season) 2024 Colorectal Cancer Screening Colonoscopy (10 Years) 02/13/2031 02/13/2021, 02/13/2021 Meningococcal B Vaccine Aged Out No l onger eligible based on patient's age to complete this topic Meningococcal Vaccine Aged Out No lucia saurabh eligible based on patient's age to complete this topic RSV Immunizations Under 20 Months Aged Out No longer eligible b ased on patient's age to complete this topic Medical Devices Implanted Type Area Transportation Manager Device Identifier Shelf Expiration Date Model / [...] 134 <200 MG/DL 05/03/2020 9:10 AM CDT [facility] Comment: THE NATIONAL LIPID ASSOCIATION AND THE NATIONAL CHOLESTEROL EDUCATION PROGRAM (NCEP) HAVE SET THE FOLLOWING GUIDELINES FOR TOTAL CHOLESTEROL IN ADULTS AGES 18 AND UP. DESIRABLE: <200 BORDERLINE HIGH: 200-239 HIGH: > OR = 240 TRIGLYCERIDES 32 <150 MG/DL 05/03/2020 9:10 AM CDT [facility] Comment: THE NATIONAL LIPID ASSOCIATION AND THE NATIONAL CHOLESTEROL EDUCATION PROGAM (NCEP) HAVE SET THE FOLLOWING GUIDELINES FOR TRIGLYCERIDES IN ADULTS AGES 18 AND UP. NORMAL: <150 BORDERLINE HIGH: 150 TO 199 HIGH: 200 TO 499 VERY HIGH: >499 HDL 51 >39 MG/DL 05/03/2020 9:10 AM CDT [facility] Comment: THE NATIONAL LIPID ASSOCIATION AND THE NATIONAL CHOLESTEROL EDUCATION PROGA (NCEP) HAVE SET THE FOLLOWING GUIDELINES FOR HDL CHOLESTEROL IN ADULTS AGES 18 AND UP. MALES: >39 FEMALES: >49 LDL (CALCULATED) 77 <100 MG/DL 05/03/20 9:10 AM CDT [facility] Comment: THE NATIONAL LIPID ASSOCIATION AND THE NATIONAL CHOLESTEROL EDUCATION PROGAM (NCEP) HAVE SET THE FOLLOWING GUIDELINES FOR LDL CHOLESTEROL IN ADULTS AGES 18 AND UP. DESIRABLE: <100 ABOVE DESIRABLE: 100 TO 129 BORDERLINE HIGH: 130 TO 159 HIGH: 160 TO 189 VERY HIGH: >189 VLDL CALCULATION 6 MG/DL 05/03/20 9:10 AM CDT [facility] Comment:REFERENCE RANGE NOT ESTABLISHED CHOL/HDL RATIO 2.6 05/03/2020 9:10 AM CDT [facility] Comment:REFERENCE RANGE NOT ESTABLISHED LDL/HDL 1.5 05/03/2020 9:10 AM CDT [facility] Comment:REFERENCE RANGE NOT ESTABLISHED NON HDL CHOLESTEROL 83 MG/DL 05/03/2020 9:10 AM T [facility] Comment:REFERENCE RANGE NOT ESTABLISHED 05/03/2020 8:32 AM CDT Maria Fernanda Guerra APRN MARKET INTELLIGENCE CONSULTANT-C LABORATORY Final Result Performing Organization Address City/[facility]/ZIP Co de Phone Number [facility] [place] [address], * OUTSIDE LAB (11/16/2019) HGB A1C 8.1 [facility] 11/16/2019 us Documents Scanned SCANNING Edited Result - Final [facility] from Last 3 Months or Most Recently Relevant to Health Maintenance Insurance AETNA AETNA Advance Directives Documents on File Type Date Recorded Patient Resolution Rep Expl anation Power of Media Intern 05/07/2020 8:54 AM * Full Code (Latest [...] 11:22 AM 05/06/2020 5:33 PM Care Teams Building Maintenance Repairer Relationship Specialty Start Date End Date Kale Ferrari MD [address] [place] [address] PCP - General INTERNAL MEDICINE 11/19/19 Maria Fernanda Guerra APRN, MARKET INTELLIGENCE CONSULTANT-C [address] [phone] NURSE PRACTITIONER 03/10/20
[2024-12-17 10:17] LABS: Alanine Aminotransferase 27 U/L (16-63); Albumin Level 3.9 g/dL (3.4-5.0); Alkaline Phosphatase 118 U/L (46-116); Anion Gap 10 mmol/L (4-12); Aspartate Amino Transferase 20 U/L (15-37); Bilirubin,Total 0.5 mg/dL (0.00-1.00); Blood Urea Nitrogen 22 mg/dL (7-18); Calcium 9.3 mg/dL (8.5-10.1); Carbon Dioxide 27 mmol/L (21-32); Chloride 104 mmol/L (98-108); Cholesterol 300 mg/dL (0-200); Estimated Glomerular Filt Rate 53; Glucose 145 mg/dL (70-99); HDL Direct 55 mg/dL (40-60); LDL Cholesterol Calculated 221 mg/dL (<130); Osmolality Calculated 298 mOsm/kg (285-295); Potassium 5.2 mmol/L (3.5-5.1); Prostate Specific Antigen 2.3 ng/mL (< OR = 4.0); Sodium 141 mmol/L (136-145); Thyroid Stimulating Hormone 1.59 uIU/mL (0.36-3.74); Total Protein 7.1 g/dL (6.4-8.2); Triglycerides 121 mg/dL (0-150)
== END 2024-12-17 09:16 | disposition home or self-care (01) ==
LOC: CHSIMG 09:17
PROVIDERS: PCP Internal Medicine; Visit Provider Internal Medicine
DX: I10 Essential (primary) hypertension (principal); E11.9 Type 2 diabetes mellitus without complications; E29.1 Testicular hypofunction; Z12.5 Encounter for screening for malignant neoplasm of prostate
CPT/HCPCS: 36415; 80053; 80061; 83002; 83036; 84153; 84402; 84403; 84443; G0103

== ENCOUNTER 2025-01-08 10:04 | Outpatient (CLI) | payer MEDICARE, SELFPAY ==
--- OUTSIDE RECORDS SUMMARY | 2025-01-08 10:54 | XMS_ITS | Encounter Summary ---
Author Organization [facility] Address [address] [place] [address] Care Team Providers Care Tester Printed Circuit Boards Name Role Phone Kale Ferrari MD Primary Care Provider [phone] Maria Fernanda Guerra APRN, NP-C Unavailable Encounter Details Date Type Department Care Team (Late st Contact Info) Description 05/05/2020 Hospital Orders Only [facility] Anesthesia [address] [place] [address] Gavi Matthews Anesthesia Record Procedure Summary Procedure [...] Rule Out 08/04/2020 08/04/2020 08/04/2020 5:18 PM PROTECTION CHIEF INDUSTRIAL PLANT COVID-19 Rule Out 08/06/2020 08/06/2020 08/07/2020 6:42 AM PROTECTION CHIEF INDUSTRIAL PLANT COVID-19 Rule Out 11/03/2020 11/03/2020 11/03/2020 4:58 PM PROTECTION CHIEF INDUSTRIAL PLANT COVID-19 Rule Out 02/10/2021 02/10/2021 02/10/2021 7:35 PM CDT documented as of this encounter Care Teams Tester Printed Circuit Boards Relationship Specialty Start Date End Date Kale Ferrari MD [address] [place] [address] PCP - General INTERNAL MEDICINE 11/19/19 Maria Fernanda Guerra APRN, TUNNEL MAN-C [address] [phone] NURSE PRACTITIONER 03/10/20 documented as of this encounter
--- OUTSIDE RECORDS SUMMARY | 2025-01-08 10:54 | XMS_ITS | Encounter Summary ---
Author Organization [facility] Address Critical access hospital[address] [place] [address] Care Team Providers Care Compressor Stations Superintendent Name Role Phone Kale Ferrari MD Primary Care Provider [phone] Maria Fernanda Guerra APRN, NP-C Unavailable Encounter Details Date Type Department Care Team (Late st Contact Info) Description 08/04/2020 Hospital Orders Only [facility] Anesthesia [address] [place] [address] Gavi Matthews Anesthesia Record Procedure Summary Procedure [...] Time: 1447 08/05/20 1455 by Chong Prajapati OBIEE CONSULTANT 08/06/20 1447 by Beronica Alfonso CRNA Borrero [...] Respiratory Therapist 08/05/20 1511 by Qing Phillips, MAINTENANCE AND UTILITIES SUPERVISOR 08/08/20 1640 by Ziggy Butterfield, RN CVC [...] COVID-19? No / Unsure 08/05/2020 11:56 AM BREAKDOWN MAN documented as of this encounter Plan of Treatment Not on file documented as of this encounter Visit Diagnoses Not on filedocumented in this encounter Additional Health Concerns Infection Onset Date Last Indicated Resolved Time COVID-19 Rule Out 08/04/2020 08/04/2020 08/04/2020 5:18 PM BREAKDOWN MAN COVID-19 Rule Out 08/06/2020 08/06/2020 08/07/2020 6:42 AM BREAKDOWN MAN COVID-19 Rule Out 11/03/2020 11/03/202011/03/2020 4:58 PM BREAKDOWN MAN COVID-19 Rule Out 02/10/2021 02/10/2021 02/10/2021 7:35 PM CDT documented as of this encounter Care Teams Compressor Stations Superintendent Relationship Specialty Start Date End Date Kale Ferrari MD [address] [place] [phone] PCP - General INTERNAL MEDICINE 11/19/19 Maria Fernanda Guerra APRN, RANGE CONSERVATIONIST-C [address] [facility] [address] [phone] NURSE PRACTITIONER 03/10/20 documented as of this encounter
--- OUTSIDE RECORDS SUMMARY | 2025-01-08 10:54 | XMS_ITS | Clinical Summary ---
Author Organization [facility] Address [address] [place] [address] Care Team Providers Care Lead Burner Apprentice Name Role Phone Unavailable Primary Care Provider Unavailabl e Source Comments [facility],non-owned Affiliates and Associated Physician Practices is amultiple site organization consisting of ambulatory clinics and hospital sitesin [place], [place], [place] and [place]. This disclosure is being madepursuant to the Care Everywhere program and may not contain all information available regarding this patient. 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 Case Report Dermatopathology Report Case: [id number] Authorizing Provider: Shayan Caldwell MD Collected: 11/29/2024 12:00 AM Ordering Location: [facility] - Received: 12/03/2024 01:52 PM DermPath Lab [...] characteristic determined by the Dermatopathology Laboratory at [facility], directed by Dr. Devang Mckinney. These tests need not be, and therefore are not, approved by the [place] Food and Drug Administration. The tests are used for clinical purposes. Billing Codes Specimen Charges Stain Charges [id number] 1 11:36 AM CDT DERMATOPATHOLOGY LABORATORY Embedded Images 11:36 AM CDT DERMATOPATHOLOGY LABORATORY Pathology/Cytolog y TISSUE SPECIMEN FROM SKIN / Unknown 11/29/2024 12/03/2024 1:52 PM CDT us Shayan Caldwell MD LAB - PATHOLOGY/CYTOLOGY ORDE DEMOND Final Result DERMATOPATHOLOGY LABORATORY [facility] - Department of Dermatology [address], [address] [phone] from Last 3 Months Insurance AETNA AETNA MEDICARE ADV
--- OUTSIDE RECORDS SUMMARY | 2025-01-08 10:54 | XMS_ITS | Encounter Summary ---
Author Organization [facility] Address [address] [place] [address] Care Team Providers Care Medicine Aide Name Role Phone Kale Ferrari MD Primary Care Provider [phone] Maria Fernanda Guerra APRN, NP-C Unavailable Encounter Details Date Type Department Care Team (Late st Contact Info) Description 11/03/2020 Hospital Orders Only [facility] Anesthesia [address] [place] [address] Gavi Matthews Anesthesia Record Procedure Summary Procedure Name Responsible Anesthesiologist Anesthesia Start Time Anesthesia Stop Time XA A-FIB ABLATION Luis Valentin MD 11/05/20 1215 11/05/20 1700 Events Date Time Event Comment 11/05/2020 1106 1106 AN Anesthesia Prepped 1202 AN UNEMPLOYMENT INSPECTOR Prepped 1215 An Start Patient ID and [...] Patient Discharged 11/05/20 1241 by Jennifer Richards, UNEMPLOYMENT INSPECTOR 11/05/20 1300 by Clementine Ortiz RN Surgical/Incision [...] COVID-19? No / Unsure 11/05/2020 9:54 AM BENZOL OPERATOR documented as of this encounter Functional Status [...] Assessment Author Status No 08/12/2020 2:20 AM BENZOL OPERATOR Activ e * RETIRED Are you blind or do you have serious difficulty seeing, even when wearing glasses? Answer Date of Assessment Author Status No 08/12/2020 2:20 AM BENZOL OPERATOR Activ e * Do you have serious [...] Rule Out 11/03/2020 11/03/2020 11/03/2020 4:58 PM BENZOL OPERATOR COVID-19 Rule Out 02/10/2021 02/10/2021 02/10/2021 7:35 PM CDT documented as of this encounter Care Teams Medicine Aide Relationship Specialty Start Date End Date Kale Ferrari MD [address] [place] [address] PCP - General INTERNAL MEDICINE 11/19/19 Maria Fernanda Guerra APRN, MOLECULAR PATHOLOGIST-C [address] [facility] [address] [phone] NURSE PRACTITIONER 03/10/20 documented as of this encounter
--- OUTSIDE RECORDS SUMMARY | 2025-01-08 10:54 | XMS_ITS | Data Portability ---
Author Organization [facility], Main Office Address [address] [place] [id number] Assessment Encounter Date Assessment Date Assessment LastModified by Organization Details LastModified Time 01/02/2018 01/02/2018 Increase his Lantus to 30 units daily, but switched to 15 units in the morning and 15 units at night. Continue to check sugars one to 3 times daily. Start only lisinopril 20 mg twice a day and check blood pressures also. Increase Lexapro to 20 mg. Return to the office in one month. Not available 01/02/2018 13:28:42 02/01/2018 02/01/2018 Referral to [facility] for double vision and diabetic eye exam. Return to the office and [place] is [place]. Not available 02/01/2018 12:04:12 03/14/2018 03/14/2018 Refill medications previously tolerated. Not available 03/14/2018 14:33:36 09/25/2018 09/25/2018 Renew his medications to have on file. Order given to obtain an A1c level and PSA. Return to the office in 6 months or sooner if needed/notified. Not available 09/25/2018 12:45:09 10/17/2018 10/17/2018 Startled her in senior care for his left elbow. [facility]er patient to [facility] for rash. Continue current medications as directed. Standing order for labs every 3 months including PSA. Not available 10/17/2018 10:19:45 Plan of Treatment Reminders Order Date Submit Date Provider Last Modified By Organization Details Last Modified Time Details Appointments None recorded. Lab None recorded. Referral None recorded. Procedures None recorded. Surgeries None recorded. Imaging None recorded. Medication Orders Voltaren 1 % topical gel 2018 019 INTERFACE [facility], [address] [place], [address], 9 10:01:40 alprazolam 1 mg tablet 2018 019 INTERFACE [facility], [address] [place], [address], 9 12:00:53 buspirone 7.5 mg tablet 2018 019 INTERFACE [facility], [address] [place], [address], 9 12:00:48 lisinopril 20 mg tablet 2018 019 INTERFACE [facility], [address] [place], [address], 9 12:00:50 Namenda 10 mg tablet 2018 019 INTERFACE [facility], [address] [place], [address], 9 12:00:51 Lexapro 20 mg tablet 2018 019 INTERFACE [facility], [address] [place], [address], 9 12:00:52 Lantus Solostar U-100 Insulin 100 unit/mL (3 mL) subcutaneo us pen 2017 018 INTERFACE Not available 8 14:23:42 Humalog KwikPen (U-100) Insulin 100 unit/mL subcutaneo us 2017 018 INTERFACE Not available 8 14:23:45 lisinopril 20 mg tablet 2017 018 INTERFACE Not available 8 14:23:42 Namenda 10 mg tablet 2017 018 INTERFACE Not available 8 14:23:44 Lexapro 20 mg tablet 2017 018 INTERFACE Not available 8 14:23:44 lisinopril 20 mg tablet 2017 018 INTERFACE Not available 8 12:01:30 Lexapro 20 mg tablet 2017 018 Not available 8 14:17:46 Patient TargetsNo targets recorded. Patient InstructionsNo instructions recorded. Reason for Referral None Reported. Results Created Date Observation Date Name Description Value Unit Range Abnormal Flag Note LastModifiedBy Organization Detail LastModifiedTime 12/21/19 18 12/20/2017 elect low brushgr am No observ ation record ed. Not Available 12/20 11:32:38 11/10/19 19 11/09/2018 XR, shoul pipo No observ ation record ed. [address], [place], [address], 11/09/2018 08:43:16 Result Notes None recorded. Problems Name Problem SNOMED Code Status Onset Date Resolution Date Notes Provider Name and Address Organization Details Recorded Time Generalized anxiety disorder 26532797 Active 2017 Cortes Yun PA-C [address] [place] [address], [phone], [facility] 8 11:59:51 Prostate specific antigen above reference range 930633572 Active 2018 Cortes Yun PA-C [address] [place] [address], [address] 1, [facility] 9 11:58:52 History of radical prostatecto 6552321467868 09 Active 2018 Cortes Yun PA-C [address] [place] [address], [address] 1, [facility] 9 11:59:32 Complaining of a rash Active 2018 Cortes Yun PA-C [address] [place] [address], [address] 1, [facility] 9 09:50:37 Pain of elbow region 27850133 Active 2018 Cortes Yun PA-C [address] [place] [address], [address] 1, [facility] 9 09:51:46 Prostatitis 9212742 Active 2017 Cortes Yun PA-C [address] [place] [address], [address] 1, [facility] 8 15:03:54 Alzheimer's disease 15572530 Active 2017 Cortes Yun PA-C [address] [place] [address], [address] 1, [facility] 8 15:04:02 Type 2 diabetes mellitus without complicatio n 282601867 Active 2017 Cortes Yun PA-C [address] [place] [address], [address] 1, [facility] 8 15:04:10 Depressive disorder 73191432 Active 2017 Cortes Yun PA-C [address] [place] [address], [address] 1, [facility] 8 15:04:19 Essential hypertensio n 46523134 Active 2017 Cortes Yun PA-C [address] [place] [address], [address] 1, [facility] 8 15:04:25 Mixed hyperlipide lindy 785537985 Active 2017 Cortes Yun PA-C [address] [place] [address], [address] 1, [facility] 8 11:54:06 Problem Notes None recorded. Procedures Surgical History None recorded. Imaging Results Imaging Date Name Status LastModified by Organization Details LastModified Time 12/20/2017 electrocardiogram completed Informa tion not available 12/20/2017 11:32:38 11/09/2018 XR, shoulder completed [address], [address], 11/09/2018 08:43:16 Procedure Notes None recorded. Medical Equipment None Reported. Allergies Allergen ID Allergen Name Allergen Category Reaction Reaction Severity Criticality Documentation Date Start Date Code Code System Note Provider Name and Address Organization Details Recorded Time 1015 Product containin g 3-hydroxy -3-methyl glutaryl- coenzyme A reductase inhibitor (product) medicatio n Not available Not available Not available 12/05/2017 43764 009 SNOMED MATT MARTINEZ [facility] 8 14:52:27 1183 hydralazi ne medicatio n Not available Not available Not available 01/02/2018 5470 RxNorm Cortes Yun PA-C [address] [place] [address], [phone] [place] [address] 8 11:49:05 Medications Name Sig Start Date Stop Date Status Note LastModified by Organization Details LastModified Time triamcinolo ne acetonide 0.5 % topical cream active Not Available Not Available Not Available alprazolam 1 mg tablet TAKE ONE TABLET BY MOUTH THREE TIMES A DAY NEEDED FOR ANXIETY 2018 active Not Available Not Available Not Avai lable lisinopril 20 mg tablet Take 1 tablet twice a day by oral route. 2018 active Not Available Not Available Not Avai lable fluorouraci l 5 % topical cream active Not Available Not Available Not Available prednisone 5 mg tablet Take 1 tablet every day by oral route for 8 days. 2018 active Not Available Not Available Not Avai lable penicillin V potassium 500 mg tablet Take 1 tablet twice a day by oral route for 10 days. 2018 active Not Available Not Available Not Avai lable sulfamethox azole 800 mg-trimetho prim 160 mg tablet Take 1 tablet every 12 hours by oral route for 14 days. active Not Available Not Available No t Available buspirone 7.5 mg tablet Take 1 tablet twice a day by oral route. 2018 active Not Available Not Available Not Avai lable hydralazine 50 mg tablet Take 1 tablet twice a day by oral route. 01/02 completed Not Available Not Available Not Available losartan 100 mg tablet 01/02 completed Not Available Not Available Not Available escitalopra m 10 mg tablet Take 1 tablet every day by oral route. 01/02 completed Not Available Not Available Not Available Lexapro 20 mg tablet Take 1 tablet every day by oral route. 2018 active Not Available Not Available Not Avai lable Namenda 10 mg tablet Take 1 tablet twice a day by oral route. 2018 active Not Available Not Available Not Avai lable Lantus Solostar U-100 Insulin 100 unit/mL (3 mL) subcutaneou s pen Inject 20 units every day by subcutane ous route. 2017 active Not Available Not Available Not Avai lable Lantus Solostar U-100 Insulin 20 units daily active Not Available Not Available No t Available Humalog KwikPen (U-100) Insulin 100 unit/mL subcutaneou s 10 to 20 units TID at mealtimes and bedtime per sliding scale 2017 active Not Available Not Available Not Avai lable Voltaren 1 % topical gel APPLY 2 GRAM TO THE AFFECTED AREA(S) BY TOPICAL ROUTE 4 TIMES PER DAY 2018 active Not Available Not Available Not Avai lable True Metrix Glucose Test Strip CHECK BLOOD SUGAR 6 TIMES DAILY 2017 active Not Available Not Available Not Avai lable True Metrix Glucose Meter Use as directed 2017 active Not Available Not Available Not Avai lable Humalog Tarun KwikPen U-100 10 to 20 units TID and bedtime per sliding scale active Not Available Not Available No t Available Vitals Date Recorded Body height Body mass index (BMI) Body weight Heart rate Systolic blood pressure Diastolic blood pressure Provider Name and Address Organization Details Last Updated DateTime 8 172.72 cm 28.4 kg/m2 13952.7 7 g 64 /min 142 mm[Hg] 70 mm[Hg] MATT MARTINEZ [facility] 8 11:45:21 Date Recorded Body height Body mass index (BMI) Body weight Heart rate Systolic blood pressure Diastolic blood pressure Provider Name and Address Organization Details Last Updated DateTime 8 172.72 cm 27.7 kg/m2 41990.8 1 g 75 /min 150 mm[Hg] 74 mm[Hg] [facility] 8 11:35:30 Date Recorded Body height Body mass index (BMI) Body weight Heart rate Systolic blood pressure Diastolic blood pressure Provider Name and Address Organization Details Last Updated DateTime 8 172.72 cm 27.8 kg/m2 12281.4 g 69 /min 166 mm[Hg] 78 mm[Hg] [facility] 8 14:14:46 Date Recorded Body height Body mass index (BMI) Body weight Heart rate Systolic blood pressure Diastolic blood pressure Provider Name and Address Organization Details Last Updated DateTime 9 172.72 cm 28 kg/m2 37788 g 64 /min 150 mm[Hg] 80 mm[Hg] [facility] 9 11:28:58 Date Recorded Body height Body mass index (BMI) Body weight Heart rate Systolic blood pressure Diastolic blood pressure Provider Name and Address Organization Details Last Updated DateTime 9 172.72 cm 28.1 kg/m2 19725.5 9 g 66 /min 140 mm[Hg] 70 mm[Hg] [facility] 9 09:35:29 Social History None recorded. Functional Status None recorded. Mental Status None recorded. Family History Nothing Reported. Medical History No medical history recorded. Past Encounters Encounter ID Performer Location Encounter Start Date Encounter Closed Date Diagnosis/Indication Diagnosis SNOMED-CT Code Diagnosis ICD10 Code Diagnosis Note [id number] Cortes Yun PA-C Main Office [address] [place] [phone] 1 12/05/2017 14:31:59 12/05/2017 15:04:47 Essential hypertension 34951688 I10 Depressive disorder 3548 9007 F32.89 Type 2 norma betes mellitus without complication 181788942 E11.9 Alzheimer's disease 2692 9004 G30.9 Prostatitis 5173846 N41. 9 [id number] Cortes Yun PA-C Main Office [address] [place] [address] 1 12/19/2017 14:06:58 12/19/2017 14:28:02 Essential hypertension 72608139 I10 Depressive disorder 3548 7 F32.89 Type 2 norma betes mellitus without complication 461299193 E11.9 Alzheimer's disease 2692 9004 G30.9 Prostatitis 4995974 N41. 9 [id number] Cortes Yun PA-C Main Office [address] [place] [address] 1 01/02/2018 11:36:12 01/02/2018 12:12:06 Essential hypertension 27214941 I10 Depressive disorder 3547 F32.89 Type 2 norma betes mellitus without complication 804847314 E11.9 Alzheimer's disease 2692 9004 G30.9 Mixed hyperlipidemia 267 860687 E78.2 [id number] Cortes Yun PA-C Main Office [address] [place] [address] 1 02/01/2018 11:28:37 02/01/2018 13:08:02 Mixed hyperlipidemia 481265894 E78.2 Essential hypertension 22423731 I10 Depressive disorder 3547 F32.89 Type 2 norma betes mellitus without complication 830423505 E11.9 Alzheimer's disease 2692 9004 G30.9 [id number] Cortes Yun PA-C Main Office [address] [place] [address] 1 03/14/2018 14:07:01 03/15/2018 10:34:20 Mixed hyperlipidemia 084911665 E78.2 Essential hypertension 23052772 I10 Depressive disorder 35477 F32.89 Type 2 norma betes mellitus without complication 394615484 E11.9 Alzheimer's disease 2692 9004 G30.9 [id number] Cortes Yun PA-C Main Office [address] [place] [address] 1 09/25/2018 11:01:04 09/25/2018 12:05:20 Type 2 diabetes mellitus without complication 866251694 E11.9 Mixed hyperlipidemia 267 084417 E78.2 Generalize d anxiety disorder 20919901 F41.1 Essential hypertension 76381691 I10 Depressive disorder 3548 7 F32.89 Alzheimer's disease 2692 9004 G30.9 History of radical prostatectomy 8704883237 72056 Z90.79 [id number] Cortes Yun PA-C Main Office [address] [place] [id number] 1 10/17/2018 09:29:04 10/17/2018 10:54:23 Generalized anxiety disorder 53858596 F41.1 Mixed hyperlipidemia 267 192709 E78.2 Essential hypertension 03165905 I10 Depressive disorder 3548 9007 F32.89 Type 2 norma betes mellitus without complication 130134999 E11.9 Alzheimer's disease 2692 9004 G30.9 Pain of elbow region 743 10302 M25.522 Prostate s pecific antigen above reference range 069541755 R97.20 Health Concerns Section Related Observation LastModified by Organization Detai ls LastModified Time None Recorded Concern Status LastModified by Organization Details LastModified Time None Recorded Advance Directives Directive None Recorded Payers Encounter Date Sequence Insurance Name Policy Number Policy [place] Covered Member ID [place] Member ID Guarantor Name 01/02/2018 1 [place] ([place]ARE[place] Edward L Amanda [id number] Edward L Amanda 02/01/2018 1 [place] ([place]ARE[place] Edward L Amanda [id number] Edward L Amanda 03/14/2018 1 [place] ([place]) Edward L Amanda [id number] Edward L Amanda 09/25/2018 1 [place] (MEDICARE) Edward L Amanda [id number] Edward L Amanda 10/17/2018 1 [place] (MEDICARE) Edward L Amanda [id number] Edward L Amanda Notes Date Note Type Note Provider Name and Address Organization Details Recorded Time 01/02/2018 text/html Patient presents to the office today for followup of blood pressure issues and other issues. Patient had a reaction to the drowsing and discontinue this medication. He started back on some lisinopril 20 mg twice a day with decreased blood pressure issues. The Lexapro is helping, but would like to increase to 20 mg. He denies headache, fever, chest pain, shortness of breath, or bone pain. Patient does continue to check his sugars one to 3 times daily as needed. Cortes Yun PA-C [address] [place] [address], [phone], [facility] 01/02/2018 13:28:52 02/01/2018 text/html Patient presents to the office today for followup visit. Blood pressures reviewed, but he is slightly agitated today in the office. He checks his sugars and blood pressure at home. He says that they are running better. He does not bring a log with him. He has Alzheimer's dementia as well. He denies headache, fever, chest pain or shortness of breath. Cortes Yun PA-C [address] [place] [address], [phone], [facility] 02/01/2018 12:04:15 03/14/2018 text/html Patient presents to the office today for a followup visit. He is needing refills of his medications. He is leaving for out of town possibly for good. He denies chest pain, short of breath, or abdominal pain. Cortes Yun PA-C [address] [place] [address], [phone], [facility] 03/14/2018 14:33:39 09/25/2018 text/html Patient presents to the office today for a followup visit. Blood pressure pulse reviewed. He has history of radical prostatectomy and has had elevated PSA levels in the past. Chest pain, shortness of breath, or abdominal pain. Need refills of medications. Cortes Yun PA-C [address] [place] [address], [phone], [facility] 09/25/2018 12:45:16 10/17/2018 text/html Patient presents to the office today to discuss recent labs. He is also complaining of a rash that started about a month or more. It was itching, itching and this has ceased. He is also complaining of pain in the left elbow at times and has complaints. He denies fatigue, chest pain, shortness of breath, or abdominal pain. Cortes Yun PA-C [address] [place] [address], [phone], [place] [facility] 10/17/2018 10:19:52
--- OUTSIDE RECORDS SUMMARY | 2025-01-08 10:54 | XMS_ITS | Clinical Summary ---
Author Organization [facility] Address [facility] [address] Care Team Providers Care Scrap Collector Name Role Phone Kale Ferrari MD Primary Care Provider [phone] Maria Fernanda Guerra APRN, NP-C Unavailable Allergies [...] of atrial fibrillation 12/2020 Systolic heart failure ([facility]) 021 Paroxysmal atrial fibrillati on with rapid ventricular response ([facility]) 09/11/2020 Typical atrial flutter ([facility]) 021 Encounter for monitoring amiodarone therapy 03/2021 Atrial fibrillation ([facility]) 08/09/2020 Delirium 08/09/2020 Ectopic atrial tachycardia ([facility]) 08/06/2020 Respiratory failure ([facility]) 08/06/2020 Acute respiratory failure with hypoxia ([facility]) 08/05/2020 Lewy body dementia 04/12/2020 Dilated cardiomyopathy secon roly to tachycardia ([facility]) 04/12/2020 Atypical atrial flutter ([facility]) 2019 On continuous oral anticoagulation 04/12/2020 Hyperlipidemia 03/10/2020 Atrial flutter ([facility]) 03/10/2020 Current smoker 03/10/2020 Hypertension Diabetes mellitus ([facility]) Sleep apnea Coronary artery disease Paroxysmal atrial flutter ([facility]) Family History Medical History Relation Comments No [...] Comments Blood Pressure 146/62 09/03/2021 7:[address]NAGER Pulse 82 09/03/2021 1:[address] MANAGER Temperature 36.5 C (97.7 F) 09/03/2021 1:[address] MANAGER Respiratory Rate 18 09/03/2021 1:[address] MANAGER Oxygen Saturation 98% 09/03/2021 7:[address] MANAGER Inhaled Oxygen Concentration - - Weight 81.6 kg (180 lb) 02/05/2021 1:55 PM CDT Height 171.5 cm (5' 7.5 ) 02/05/2021 1:55 PM CDT Body Mass Index 27.78 02/05/2021 1:55 PM CDT Plan of Treatment Health Maintenance Due Date Last Done Comments Kidney Health Evaluation 1955 Diabetes: Retinopathy Eye Exam 02/23/1974 Hepatitis C 02/23/1974 DTaP, Tdap and Td Vaccines ( 1 - Tdap) 02/23/1975 Pneumococcal Vaccine: 50+ Years (1 of 2 - PCV) 02/23/1975 Zoster Vaccines (1 of 2) 02/23/2006 [...] this topic Medical Devices Implanted Type Area Pathology Secretary Device Identifier Shelf Expiration Date Model / [...] 134 <200 MG/DL 05/03/2020 9:10 AM CDT [facility] Comment: THE NATIONAL LIPID ASSOCIATION AND THE NATIONAL CHOLESTEROL EDUCATION PROGRAM (NCEP) HAVE SET THE FOLLOWING GUIDELINES FOR TOTAL CHOLESTEROL IN ADULTS AGES 18 AND UP. DESIRABLE: <200 BORDERLINE HIGH: 200-239 HIGH: > OR = 240 TRIGLYCERIDES 32 <150 MG/DL 05/03/2020 9:10 AM CDT [facility] Comment: THE NATIONAL LIP[employer]IATION AND THE NATIONAL CHOLESTEROL EDUCATION PROGAM (NCEP) HAVE SET THE FOLLOWING GUIDELINES FOR TRIGLYCERIDES IN ADULTS AGES 18 AND UP. NORMAL: <150 BORDERLINE HIGH: 150 TO 199 HIGH: 200 TO 499 VERY HIGH: >499 HDL 51 >39 MG/DL 05/03/2020 9:10 AM CDT [facility] Comment: THE NATIONAL [employer]IP[employer]IATION AND THE NATIONAL CHOLESTEROL EDUCATION PROGA (NCEP) HAVE SET THE FOLLOWING GUIDELINES FOR HDL CHOLESTEROL IN ADULTS AGES 18 AND UP. MALES: >39 FEMALES: >49 LDL (CALCULATED) 77 <100 MG/DL 05/03/20 9:10 AM CDT [facility] Comment: THE NATIONAL [employer]IP[employer]OCIATION AND THE NATIONAL CHOLESTEROL EDUCATION PROGAM (NCEP) HAVE SET THE FOLLOWING GUIDELINES FOR LDL CHOLESTEROL IN ADULTS AGES 18 AND UP. DESIRABLE: <100 ABOVE DESIRABLE: 100 TO 129 BORDERLINE HIGH: 130 TO 159 HIGH: 160 TO 189 VERY HIGH: >189 VLDL CALCULATION 6 MG/DL 05/03/20 9:10 AM CDT [facility] Comment:REFERENCE RANGE NOT ESTABLISHED CHOL/HDL RATIO 2.6 05/03/2020 9:10 AM CDT [facility] Comment:REFERENCE RANGE NOT ESTABLISHED LDL/HDL 1.5 05/03/2020 9:10 AM CDT [facility] Comment:REFERENCE RANGE NOT ESTABLISHED NON HDL CHOLESTEROL 83 MG/DL 05/03/2020 9:10 AM CDT [facility] Comment:REFERENCE RANGE NOT ESTABLISHED 05/03/2020 8:32 AM CDT CHELSEY Peters APRNC LABORATORY Final Result Performing Organization Address City/[facility]/ZIP Co de Phone Number [facility] [address] [place] [address], * OUTSIDE LAB (11/16/2019) HGB A1C 8.1 [facility] ONBASE 11/16/2019 us Documents Scanned SCANNING Edited Result - Final [facility] Last 3 Months or Most Recently Relevant to Health Maintenance Insurance AETNA AETNA Advance Directives Documents on File Type Date Recorded 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
--- OUTSIDE RECORDS SUMMARY | 2025-01-08 10:54 | XMS_ITS | Encounter Summary ---
Author Organization [facility] Address [address] [place] [address] Care Team Providers Care Occupational Therapy Professor Name Role Phone Unavailable Primary Care Provider Unavailabl e Encounter Details Date Type Department Care Team (Late st Contact Info) Description 12/01/2024 Lab Requisition [facility] - DermPath Lab [address] [place] [phone] Shayan Caldwell MD [facility] DERMATOLOGY [address] [place] [phone] Other follicular cysts of the skin and subcutaneous tissue; Other localized visual field defect, unspecified eye Social History Tobacco Use Types Packs/Day Years Used Date Smoking Tobacco: Never Assessed Sex and Gender Information Value Date Recorded Sex Assigned at Not on file Legal Sex 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 Devang Mckinney. These tests need not be, and therefore are not, approved by the [place] Food and Drug Administration. The tests are used for clinical purposes. Billing Codes Specimen Charges Stain Charges 07123 1 11:36 AM CDT DERMATOPATHOLOGY LABORATORY Embedded Images 11:36 AM CDT DERMATOPATHOLOGY LABORATORY Pathology/Cytolog y TISSUE SPECIMEN FROM SKIN / Unknown 11/29/2024 12/03/2024 1:52 PM CDT Shayan Caldwell MD LAB - PATHOLOGY/CYTOLOGY ORDE DEMOND Final Result DERMATOPATHOLOGY LABORATORY [facility] - Department of Dermatology [address], [address] [phone] documented in this encounter Visit Diagnoses Diagnosis Other follicular cysts of the skin and subcutaneous tissue Other localized visual field defect, unspecified eye documented in this encounter
--- OUTSIDE RECORDS SUMMARY | 2025-01-08 10:54 | XMS_ITS | Encounter Summary ---
Author Organization [facility] Address [facility] [place] [address] Care Team Providers Care Rate Reviewer Name Role Phone Kale Ferrari MD Primary Care Provider [phone] Maria Fernanda Guerra APRN PADDLE DYEING MACHINE OPERATOR-C Unavailable Encounter Details Date Type Department Care Team (Late st Contact Info) Description 03/11/2020 Abstract [facility] [address] [place] [phone] Abstract, Doc [facility] Social History Tobacco Use [...] Final Result * LIPID PANEL (02/19/2020) Pathologist [facility] CHOLESTEROL 152 HDL 56 TRIGLYCERIDES 42 LDL (CALCULATED) 98 02/19/2020 us Kale Ferrari MD LABORATORY Final Result * CMP (ABSTRACTED LAB) (02/19/2020) Pathologist [facility] SODIUM S/P/B 140 POTASSIUM S/P/B [...] Rule Out 08/04/2020 08/04/2020 08/04/2020 5:18 PM TEST DEPARTMENT HELPER COVID-19 Rule Out 08/06/2020 08/06/2020 08/07/2020 6:42 AM TEST DEPARTMENT HELPER COVID-19 Rule Out 11/03/2020 11/03/2020 11/03/2020 4:58 PM TEST DEPARTMENT HELPER COVID-19 Rule Out 02/10/2021 02/10/2021 02/10/2021 7:35 PM CDT documented as of this encounter Care Teams Rate Reviewer Relationship Specialty Start Date End Date Kale Ferrari MD [address] [place] [phone] PCP - General INTERNAL MEDICINE 11/19/19 Maria Fernanda Guerra APRN, PADDLE DYEING MACHINE OPERATOR-C [address] [facility] [address] [place] [phone] NURSE PRACTITIONER 03/10/20 documented as of this encounter
--- OUTSIDE RECORDS SUMMARY | 2025-01-08 10:54 | XMS_ITS | Encounter Summary ---
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 Jar 0. 12:49 PM CDT DERMATOPATHOLOGY [...] characteristic determined by the Dermatopathology Laboratory at [facility], directed by Dr. Devang Mckinney. These tests need not be, and therefore are not, approved by the [place] Food and Drug Administration. The tests are used for clinical purposes. 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
== END 2025-01-08 10:05 | disposition home or self-care (01) ==
LOC: CHSLAB 10:05
PROVIDERS: PCP Internal Medicine; Visit Provider Specialist
DX: C44.529 Squamous cell carcinoma of skin of other part of trunk (principal)
CPT/HCPCS: 88305

== ENCOUNTER 2025-04-18 13:20 | Outpatient (CLI) | payer MEDICARE, SELFPAY ==
--- OUTSIDE RECORDS SUMMARY | 2025-04-18 13:27 | XMS_ITS | Encounter Summary ---
Author Organization [facility] Address [facility] [place] [address] Care Team Providers Care Manufacturing Test Technician Name Role Phone Kale Ferrari MD Primary Care Provider [phone] Maria Fernanda Guerra APRN, NP-C Unavailable Encounter Details Date Type Department Care Team (Late st Contact Info) Description 08/04/[address] [facility] Anesthesia [address] [place] [address] Gavi Matthews Anesthesia Record Procedure Summary Procedure [...] Time: 1447 08/05/20 1455 by Chong Prajapati TAPE KELLER OPERATOR 08/06/20 1447 by Beronica Alfonso CRNA Borrero [...] Respiratory Therapist 08/05/20 1511 by Qing Phillips, FIELD OPERATOR 08/08/20 1640 by Ziggy Butterfield, RN CVC [...] COVID-19? No / Unsure 08/05/2020 11:56 AM TEST DESIGNER documented as of this encounter Plan of Treatment Not on file documented as of this encounter Visit Diagnoses Not on filedocumented in this encounter Additional Health Concerns Infection Onset Date Last Indicated Resolved Time COVID-19 Rule Out 08/04/2020 08/04/2020 08/04/2020 5:18 PM TEST DESIGNER COVID-19 Rule Out 08/06/2020 08/06/2020 08/07/2020 6:42 AM TEST DESIGNER COVID-19 Rule Out 11/03/2020 11/03/202011/03/2020 4:58 PM TEST DESIGNER COVID-19 Rule Out 02/10/2021 02/10/2021 02/10/2021 7:35 PM CDT documented as of this encounter Care Teams Manufacturing Test Technician Relationship Specialty Start Date End Date Kale Ferrari MD [address] [place] [phone] PCP - General INTERNAL MEDICINE 11/19/19 Maria Fernanda Guerra APRN, LINE MAINTENANCE-C [address] [facility] [address] [phone] NURSE PRACTITIONER 03/10/20 documented as of this encounter
--- OUTSIDE RECORDS SUMMARY | 2025-04-18 13:27 | XMS_ITS | Encounter Summary ---
Author Organization [facility] Address [address] [place] [address] Care Team Providers Care Machine Spring Former Name Role Phone Unavailable Primary Care Provider Unavailabl e Encounter Details Date Type Department Care Team (Late st Contact Info) Description 12/01/2024 Lab Requisition [facility] - DermPath Lab [address] [place] [phone] Shayan Caldwell MD [facility] DERMATOLOGY [address] [place] [phone] Other follicular cysts of the skin and subcutaneous tissue; Other localized visual field defect, unspecified eye Social History Tobacco Use Types Packs/Day Years Used Date Smoking Tobacco: Never Assessed Sex and Gender Information Value Date Recorded Sex Assigned at Not on file 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 SKIN, nasal root: ACTINIC KERATOSIS (L57.0) EPIDERMOID CYST (L72.0) (see microscopic description) 11:36 AM CDT DERMATOPATHOLOGY LABORATORY at 1136 CDT Clinical History Cyst Check margins 11:36 AM [...] characteristic determined by the Dermatopathology Laboratory at [facility], directed by Dr. Devang Mckinney. These tests need not be, and therefore are not, approved by the [place] Food and Drug Administration. The tests are used for clinical purposes. Billing Codes Specimen Charges Stain Charges 73132 1 11:36 AM CDT DERMATOPATHOLOGY LABORATORY Embedded Images 11:36 AM CDT DERMATOPATHOLOGY LABORATORY Pathology/Cytolog y TISSUE SPECIMEN FROM SKIN / Unknown 11/29/2024 12/03/2024 1:52 PM CDT Shayan Caldwell MD LAB - PATHOLOGY/CYTOLOGY ORDE DEMOND Final Result DERMATOPATHOLOGY LABORATORY [facility] - Department of Dermatology [address], [address] [phone] documented in this encounter Visit Diagnoses Diagnosis Other follicular cysts of the skin and subcutaneous tissue Other localized visual field defect, unspecified eye documented in this encounter
--- OUTSIDE RECORDS SUMMARY | 2025-04-18 13:27 | XMS_ITS | Clinical Summary ---
Author Organization [facility] Address [address] [facility] [place] [address] Care Team Providers Care Photovoltaic Solar Cell Designer Name Role Phone Unavailable Primary Care Provider Unavailabl e Source Comments [facility],non-owned Affiliates and Associated Physician Practices is amultiple site organization consisting of ambulatory clinics and hospital sitesin [place], [place] and [place]. This disclosure is being madepursuant to the Care Everywhere program and may not contain all information available regarding this patient. 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 Gender Identity Not on file Sexual Orientation [...] VACCINE (1 of 2) 02/23/2006 COVID-19 VACCINE ( - 2023-2 5 season) 2024 DEPRESSION SCREENING 09/05/2024 MEDICARE AWV CALENDAR YEAR 2024 INFLUENZA VACCINE (#1) 2025 Respiratory Syncytial Virus (RSV) Vaccine Pt: [...] on patient's age to complete this topic Insurance AETNA Member Subscriber Plan / Payer (Ef fective 2020-Present) Name:Mattie Patel Relation to Subscriber:Self Name:MATTIE PATEL Payer ID:[id number] ([facility]) Type:Medicare-Managed Care Address: [facility] [id number] [place] [phone] [employer] MEDICARE ADV
--- OUTSIDE RECORDS SUMMARY | 2025-04-18 13:27 | XMS_ITS | Clinical Summary ---
Author Organization [facility] Address [facility] [place] [address] Care Team Providers Care Light Adjuster Name Role Phone Kale Ferrari MD Primary Care Provider [phone] Maria Fernanda Guerra APRN, NP-C Unavailable Allergies [...] of atrial fibrillation 12/2020 Systolic heart failure ([facility]) 021 Paroxysmal atrial fibrillati on with rapid ventricular response ([facility]) 09/11/2020 Typical atrial flutter ([facility]) 021 Encounter for monitoring amiodarone therapy 03/2021 Atrial fibrillation ([facility]) 08/09/2020 Delirium 08/09/2020 Ectopic atrial tachycardia ([facility]) 08/06/2020 Respiratory failure ([facility]) 08/06/2020 Acute respiratory failure with hypoxia ([facility]) 08/05/2020 Lewy body dementia 04/12/2020 Dilated cardiomyopathy secon roly to tachycardia ([facility]) 04/12/2020 Atypical atrial flutter ([facility]) 2019 On continuous oral anticoagulation 04/12/2020 Hyperlipidemia 03/10/2020 Atrial flutter ([facility]) 03/10/2020 Current smoker 03/10/2020 Hypertension Diabetes mellitus ([facility]) Sleep apnea Coronary artery disease Paroxysmal atrial flutter ([facility]) Family History Medical History Relation Comments [...] Comments Blood Pressure 146/62 09/03/2021 7:30 AM CORNER CUTTER Pulse 82 09/03/2021 1:44 AM CORNER CUTTER Temperature 36.5 C (97.7 F) 09/03/2021 1:44 AM CORNER CUTTER Respiratory Rate 18 09/03/2021 1:44 AM CORNER CUTTER Oxygen Saturation 98% 09/03/2021 7:30 AM CORNER CUTTER Inhaled Oxygen Concentration - - Weight 81.6 kg (180 lb) 02/05/2021 1:55 PM CDT Height 171.5 cm (5' 7.5) 02/05/2021 1:55 PM CDT Body Mass Index [...] this topic Medical Devices Implanted Type Area Cork Wirer Device Identifier Shelf Expiration Date Model / [...] 134 <200 MG/DL 05/03/2020 9:10 AM CDT [facility] Comment: THE NATIONAL LIPID ASSOCIATION AND THE NATIONAL CHOLESTEROL EDUCATION PROGRAM (NCEP) HAVE SET THE FOLLOWING GUIDELINES FOR TOTAL CHOLESTEROL IN ADULTS AGES 18 AND UP. DESIRABLE: <200 BORDERLINE HIGH: 200-239 HIGH: > OR = 240 TRIGLYCERIDES 32 <150 MG/DL 05/03/2020 9:10 AM CDT [facility] Comment: THE NATIONAL LIPID ASSOCIATION AND THE NATIONAL CHOLESTEROL EDUCATION PROGAM (NCEP) HAVE SET THE FOLLOWING GUIDELINES FOR TRIGLYCERIDES IN ADULTS AGES 18 AND UP. NORMAL: <150 BORDERLINE HIGH: 150 TO 199 HIGH: 200 TO 499 VERY HIGH: >499 HDL 51 >39 MG/DL 05/03/2020 9:10 AM CDT [facility] Comment: THE NATIONAL LIPID ASSOCIATION AND THE NATIONAL CHOLESTEROL EDUCATION PROGA (NCEP) HAVE SET THE FOLLOWING GUIDELINES FOR HDL CHOLESTEROL IN ADULTS AGES 18 AND UP. MALES: >39 FEMALES: >49 LDL (CALCULATED) 77 <100 MG/DL 05/03/20 9:10 AM CDT [facility] Comment: THE NATIONAL LIPID ASSOCIATION AND THE NATIONAL CHOLESTEROL EDUCATION PROGAM (NCEP) HAVE SET THE FOLLOWING GUIDELINES FOR LDL CHOLESTEROL IN ADULTS AGES 18 AND UP. DESIRABLE: <100 ABOVE DESIRABLE: 100 TO 129 BORDERLINE HIGH: 130 TO 159 HIGH: 160 TO 189 VERY HIGH: >189 VLDL CALCULATION 6 MG/DL 05/03/20 9:10 AM CDT [facility] Comment:REFERENCE RANGE NOT ESTABLISHED CHOL/HDL RATIO 2.6 05/03/2020 9:10 AM CDT [facility] Comment:REFERENCE RANGE NOT ESTABLISHED LDL/HDL 1.5 05/03/2020 9:10 AM CDT [facility] Comment:REFERENCE RANGE NOT ESTABLISHED NON HDL CHOLESTEROL 83 MG/DL 05/03/2020 9:10 AM CDT [facility] Comment:REFERENCE RANGE NOT ESTABLISHED 05/03/2020 8:32 AM CDT CHELSEY Peters APRNC LABORATORY Final Result Performing Organization Address City/[facility]/ZIP Co de Phone Number [facility] [address] [email or web address] [address], * OUTSIDE LAB (11/16/2019) HGB A1C 8.1 [facility] ONBASE 11/16/2019 us Documents Scanned SCANNING Edited Result - Final [facility] from Last 3 Months or Most Recently Relevant to Health Maintenance Insurance AETNA AETNA Advance Directives Documents on File Type Date Recorded Patient Adult Education Professional Expl anation Power of Human Resource Internship 05/07/2020 8:54 AM * Full Code (Latest [...] 11:22 AM 05/06/2020 5:33 PM Care Teams Light Adjuster Relationship Specialty Start Date End Date Kale Ferrari MD [address] [place] [phone] PCP - General INTERNAL MEDICINE 11/19/19 Maria Fernanda Guerra, CELLAR SUPERVISOR, KAIAKO KURA TUARUA-C [address] [phone] NURSE PRACTITIONER 03/10/20
--- OUTSIDE RECORDS SUMMARY | 2025-04-18 13:27 | XMS_ITS | Encounter Summary ---
Author Organization [facility] Address [address] [place] [address] Care Team Providers Care Printed Circuit Photographer Name Role Phone Kale Ferrari MD Primary Care Provider [phone] Maria Fernanda Guerra APRN, NP-C Unavailable Encounter Details Date Type Department Care Team (Late st Contact Info) Description 11/03/[address] [facility] Anesthesia [address] [place] [address] Gavi Matthews Anesthesia Record Procedure Summary Procedure Name Responsible Anesthesiologist Anesthesia Start Time Anesthesia Stop Time XA A-FIB ABLATION Luis Valentin MD 11/05/20 1215 11/05/20 1700 Events Date Time Event Comment 11/05/2020 1106 1106 AN Anesthesia Prepped 1202 AN GRID CASTER Prepped 1215 An Start Patient ID and [...] Patient Discharged 11/05/20 1241 by Jennifer Richards, GRID CASTER 11/05/20 1300 by Clementine Ortiz RN Surgical/Incision [...] COVID-19? No / Unsure 11/05/2020 9:54 AM UNIT CONTROL CLERK documented as of this encounter Functional Status [...] Assessment Author Status No 08/12/2020 2:20 AM UNIT CONTROL CLERK Activ e * RETIRED Are you blind or do you have serious difficulty seeing, even when wearing glasses? Answer Date of Assessment Author Status No 08/12/2020 2:20 AM UNIT CONTROL CLERK Activ e * Do you have serious [...] Rule Out 11/03/2020 11/03/2020 11/03/2020 4:58 PM UNIT CONTROL CLERK COVID-19 Rule Out 02/10/2021 02/10/2021 02/10/2021 7:35 PM CDT documented as of this encounter Care Teams Printed Circuit Photographer Relationship Specialty Start Date End Date Kael Ferrari MD [address] [place] [address] PCP - General INTERNAL MEDICINE 11/19/19 Maria Fernanda Guerra APRN, CREATIVE COORDINATOR-C [address] [facility] [address] [phone] NURSE PRACTITIONER 03/10/20 documented as of this encounter
--- OUTSIDE RECORDS SUMMARY | 2025-04-18 13:27 | XMS_ITS | Encounter Summary ---
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 Social History Tobacco Use Types Packs/Day Years Used Date Smoking Tobacco: Never Assessed Sex and Gender Information Value Date Recorded Sex Assigned at Not on file Legal 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 SKIN, left ear: DERMAL SCAR RESIDUAL SQUAMOUS CELL CARCINOMA NOT IDENTIFIED (L90.5) 12:49 PM CDT DERMATOPATHOLOGY LABORATORY at 1249 CDT Clinical History SCC 12:49 PM CDT DERMATOPATHOLOGY LABORATORY Gross Description Specimen A: Received is one formalin filled container labeled with the patients name and designated left ear. The specimen consists of a shave removal measuring 36x71n9 mm. Jar 0. 12:49 PM CDT DERMATOPATHOLOGY [...] characteristic determined by the Dermatopathology Laboratory at [facility], directed by Dr. Devang Mckinney. These tests need not be, and therefore are not, approved by the [place] Food and Drug Administration. The tests are used for clinical purposes. 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
--- OUTSIDE RECORDS SUMMARY | 2025-04-18 13:27 | XMS_ITS | Encounter Summary ---
Author Organization [facility] Address [address] [place] [address] Care Team Providers Care Baccarat Manager Name Role Phone Kale Ferrari MD Primary Care Provider [phone] Maria Fernanda Guerar APRN, NP-C Unavailable Encounter Details Date Type Department Care Team (Late st Contact Info) Description 05/05/2020 Hospital Orders Only [facility] Anesthesia [address] [place] [address] Gavi Matthews Anesthesia Record Procedure Summary Procedure [...] Rule Out 08/04/2020 08/04/2020 08/04/2020 5:18 PM ELECTRICAL MAINTENANCE MAN COVID-19 Rule Out 08/06/2020 08/06/2020 08/07/2020 6:42 AM ELECTRICAL MAINTENANCE MAN COVID-19 Rule Out 11/03/2020 11/03/2020 11/03/2020 4:58 PM ELECTRICAL MAINTENANCE MAN COVID-19 Rule Out 02/10/2021 02/10/2021 02/10/2021 7:35 PM CDT documented as of this encounter Care Teams Baccarat Manager Relationship Specialty Start Date End Date Kale Ferrari MD [address] [place] [address] PCP - General INTERNAL MEDICINE 11/19/19 Maria Fernanda Guerra APRN, NONPROFIT MANAGER-C [address] [phone] NURSE PRACTITIONER 03/10/20 documented as of this encounter
--- OUTSIDE RECORDS SUMMARY | 2025-04-18 13:27 | XMS_ITS | Encounter Summary ---
Author Organization [facility] Address [facility] [place] [address] Care Team Providers Care Mortgage Processor Name Role Phone Kale Ferrari MD Primary Care Provider [phone] Maria Fernanda Guerra APRN GUITAR REPAIRER-C Unavailable Encounter Details Date Type Department Care Team (Late st Contact Info) Description 03/11/2020 Abstract [facility] [address] [place] [address] Abstract, Doc [facility] Social History [...] Final Result * LIPID PANEL (02/19/2020) Pathologist [facility] CHOLESTEROL 152 HDL 56 TRIGLYCERIDES 42 LDL (CALCULATED) 98 02/19/2020 us Kale Ferrari MD LABORATORY Final Result * CMP (ABSTRACTED LAB) (02/19/2020) Pathologist [facility] SODIUM S/P/B 140 POTASSIUM S/P/B 4.8 CHLORIDE [...] Rule Out 08/04/2020 08/04/2020 08/04/2020 5:18 PM WELFARE DIRECTOR COVID-19 Rule Out 08/06/2020 08/06/2020 08/07/2020 6:42 AM WELFARE DIRECTOR COVID-19 Rule Out 11/03/2020 11/03/2020 11/03/2020 4:58 PM WELFARE DIRECTOR COVID-19 Rule Out 02/10/2021 02/10/2021 02/10/2021 7:35 PM CDT documented as of this encounter Care Teams Mortgage Processor Relationship Specialty Start Date End Date Kale Ferrari MD [address] [place] [id number] PCP - General INTERNAL MEDICINE 11/19/19 Maria Fernanda Guerra APRN, GUITAR REPAIRER-C [address] [facility] [address] [place] [address] NURSE PRACTITIONER 03/10/20 documented as of this encounter
[2025-04-18 13:57] LABS: Hematocrit 36.9 % (37.0-46.0); Hemoglobin 12.4 g/dL (12.4-15.3); Mean Corpuscular HGB Conc 33.6 g/dL (32-36); Mean Corpuscular Hemoglobin 30.2 pg (27.0-31.0); Mean Corpuscular Volume 89.8 fL (78.0-102.0); Platelet Count Result 253 K/mm3 (150-420); Red Blood Count 4.11 M/mm3 (4.70-6.10); White Blood Count 11.1 K/mm3 (4.8-10.8)
[2025-04-18 14:29] LABS: Alanine Aminotransferase 18 U/L (6-50); Albumin Level 4.3 g/dL (3.5-5.1); Alkaline Phosphatase 95 U/L (38-126); Anion Gap 6 mmol/L (4-12); Aspartate Amino Transferase 23 U/L (17-59); Bilirubin,Total 0.6 mg/dL (0.2-1.3); Blood Urea Nitrogen 31 mg/dL (9-20); Calcium 9.7 mg/dL (8.4-10.2); Carbon Dioxide 24 mmol/L (22-30); Chloride 108 mmol/L (98-107); Cholesterol 167 mg/dL (0-200); Estimated Glomerular Filt Rate 52; Glucose 202 mg/dL (65-110); HDL Direct 51 mg/dL; MALB Creatinine Ratio 57.3 mg/g (0-30); Osmolality Calculated 298 mOsm/kg (285-295); Potassium 5.4 mmol/L (3.4-5.0); Sodium 138 mmol/L (137-145); Total Protein 6.5 g/dL (6.3-8.2); Triglycerides 182 mg/dL (<150)
[2025-04-18 14:58] LABS: Thyroid Stimulating Hormone 2.480 uIU/mL (0.465-4.680)
[2025-04-18 15:38] LABS: Hemoglobin A1C 7.7 % (<5.7)
== END 2025-04-18 13:21 | disposition home or self-care (01) ==
LOC: CHSLAB 13:22
PROVIDERS: PCP Internal Medicine; Visit Provider Internal Medicine
DX: E11.9 Type 2 diabetes mellitus without complications (principal); E78.5 Hyperlipidemia, unspecified; I10 Essential (primary) hypertension
CPT/HCPCS: 36415; 80053; 80061; 82043; 83036; 84443; 85027

== ENCOUNTER 2025-07-29 08:23 | Outpatient (CLI) | payer MEDICARE, SELFPAY ==
--- OUTSIDE RECORDS SUMMARY | 2025-07-29 08:34 | XMS_ITS | Encounter Summary ---
Author Organization [facility] Address [address] [place] [address] Care Team Providers Care Moose Hunter Name Role Phone Unavailable Primary Care Provider Unavailabl e Encounter Details Date Type Department Care Team (Late st Contact Info) Description 12/01/2024 Lab Requisition [facility] - DermPath Lab [address] [place] [phone] Shayan Caldwell MD [facility] D[facility]MAT[facility] [address] [place] [phone] Other follicular cysts of the skin and subcutaneous tissue; Other localized visual field defect, unspecified eye Social History Tobacco Use Types Packs/Day Years Used Date Smoking Tobacco: Never Assessed Sex and Gender Information Value Date Recorded Sex Assigned at Not on file Legal Sex Male 8:41 AM JOCKEY AGENT Gender Identity Not on file Sexual Orientation [...] AM CDT) Case Report Dermatopathology Report Case: [id number] Authorizing Provider: Shayan Caldwell MD Collected: 11/29/2024 12:00 AM Ordering Location: [facility] - Received: 12/03/2024 01:52 PM DermPath Lab [...] characteristic determined by the Dermatopathology Laboratory at [facility], directed by Dr. Devang Mckinney. These tests need not be, and therefore are not, approved by the [place] Food and Drug Administration. The tests are used for clinical purposes. Billing Codes Specimen Charges Stain Charges 45585 1 11:36 AM CDT DERMATOPATHOLOGY LABORATORY Embedded Images 11:36 AM CDT DERMATOPATHOLOGY LABORATORY Pathology/Cytolog y TISSUE SPECIMEN FROM SKIN / Unknown 11/29/2024 12/03/2024 1:52 PM CDT Shayan Caldwell MD LAB - PATHOLOGY/CYTOLOGY ORDE DEMOND Final Result DERMATOPATHOLOGY LABORATORY [facility] - Department of Dermatology [address], [address] [phone] documented in this encounter Visit Diagnoses Diagnosis Other follicular cysts of the skin and subcutaneous tissue Other localized visual field defect, unspecified eye documented in this encounter
--- OUTSIDE RECORDS SUMMARY | 2025-07-29 08:34 | XMS_ITS | Encounter Summary ---
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 Jar 0. 12:49 PM CDT DERMATOPATHOLOGY [...] characteristic determined by the Dermatopathology Laboratory at [facility], directed by Dr. Devang Mckinney. These tests need not be, and therefore are not, approved by the [place] Food and Drug Administration. The tests are used for clinical purposes. 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
--- OUTSIDE RECORDS SUMMARY | 2025-07-29 08:34 | XMS_ITS | Clinical Summary ---
Author Organization [facility] Address [address] [facility] [place] [address] Care Team Providers Care Folder Stitcher Operator Name Role Phone Unavailable Primary Care Provider Unavailabl e Source Comments [facility],non-owned Affiliates and Associated Physician Practices is amultiple site organization consisting of ambulatory clinics and hospital sitesin [place], [place], [place] and [place]. This disclosure is being madepursuant to the Care Everywhere program and may not contain all information available regarding this patient. Last updated 18.[facility] Social History Tobacco Use Types Packs/Day Years Used Date Smoking Tobacco: Never Assessed Sex and Gender Information Value Date Recorded Sex Assigned at Not on file Legal Sex Male 8:41 AM KINDERGARTNERS HELPER Gender Identity Not on file Sexual Orientation [...] 02/23/2006 ZOSTER VACCINE (1 of 2) 02/23/2006 DEPRESSION SCREENING 09/05/2024 MEDICARE AWV CALENDAR YEAR 2024 COVID-19 VACCINE (1 - 2024-2 6 season) 2025 INFLUENZA VACCINE (#1) 2025 Respiratory Syncytial Virus [...] age to complete this topic Insurance [employer] AENA MEDICARE ADV
[2025-07-29 08:54] LABS: Hemoglobin A1C 7.0 % (<5.7)
[2025-07-29 09:16] LABS: Alanine Aminotransferase 16 U/L (6-50); Albumin Level 4.2 g/dL (3.5-5.1); Alkaline Phosphatase 98 U/L (38-126); Anion Gap 8 mmol/L (4-12); Aspartate Amino Transferase 22 U/L (17-59); Bilirubin,Total 0.4 mg/dL (0.2-1.3); Blood Urea Nitrogen 14 mg/dL (9-20); Calcium 9.4 mg/dL (8.4-10.2); Carbon Dioxide 28 mmol/L (22-30); Chloride 105 mmol/L (98-107); Cholesterol 197 mg/dL (0-200); Estimated Glomerular Filt Rate > 60; Glucose 96 mg/dL (65-110); HDL Direct 57 mg/dL; Osmolality Calculated 292 mOsm/kg (285-295); Potassium 4.6 mmol/L (3.4-5.0); Sodium 141 mmol/L (137-145); Total Protein 6.6 g/dL (6.3-8.2); Triglycerides 83 mg/dL (<150)
== END 2025-07-29 08:24 | disposition home or self-care (01) ==
LOC: CHSLAB 08:26
PROVIDERS: PCP Internal Medicine; Visit Provider Internal Medicine
DX: E11.9 Type 2 diabetes mellitus without complications (principal); I10 Essential (primary) hypertension; R79.89 Other specified abnormal findings of blood chemistry
CPT/HCPCS: 36415; 80053; 80061; 83036